=== PATIENT | female | born 1985 | race African-American/Black ===

== ENCOUNTER 2016-08-08 22:34 | Emergency (ER) | payer SELFPAY ==
[~2016-08-08 22:34] MED LIST: ACET500T55 PO; AMOX875T PO; CIPR500T94 PO; GLYB5TAB3 PO; METF500T4 PO; METR500T PO; ONDA4TAB10 SL; OXYC1TAB7 PO
[2016-08-08 22:52] VITALS: BP 191/101
[2016-08-08 23:11] LABS: NEG OBC UR NEG; POS OBC UR POS
[2016-08-08 23:14] LABS: BILIRUBIN,URINE NEGATIVE (NEG); GLUCOSE,URINE >=1000 mg/dL (NEG); NITRITE,URINE NEGATIVE (NEG); PH,URINE 6.5; PROTEIN,URINE NEGATIVE (NEG-TRACE); UROBILINOGEN,URINE 0.2 mg/dL (0.2 mg/dL)
[2016-08-08 23:20] LABS: BACTERIA,URINE 0 /HPF (0-FEW); RBC,URINE 0 /HPF (0-2); SQUAMOUS EPITHELIAL CELL,UR FEW /LPF; WBC,URINE OCC /HPF (0-4)
[2016-08-08] MEDS ORDERED: IV NORMAL SALINE 1000ML BAG 1,000 ML IV SCH (23:30)
[2016-08-08 23:32] LABS: ANION GAP 12 (6-14); BLOOD UREA NITROGEN 13 mg/dL (7-20); CALCIUM 9.3 mg/dL (8.5-10.1); CARBON DIOXIDE 26 mmol/L (21-32); CHLORIDE 100 mmol/L (98-107); CREATININE 1.2 mg/dL (0.6-1.0); GFR 63.4; GLUCOSE 427 mg/dL (70-99); POTASSIUM 3.6 mmol/L (3.5-5.1); SODIUM 138 mmol/L (136-145)
[2016-08-08 23:37] LABS: ALBUMIN 3.4 g/dL (3.4-5.0); ALK PHOS 100 U/L (46-116); ALT (SGPT) 15 U/L (14-59); AST (SGOT) 10 U/L (15-37); DIRECT BILIRUBIN < 0.1 mg/dL (0.0-0.2); TOTAL BILIRUBIN 0.2 mg/dL (0.2-1.0)
[2016-08-08] MEDS ORDERED: INSULIN REGULAR 100 UNIT/ML 10ML VIAL. IV ONE (23:45)
[2016-08-09] MEDS ORDERED: ACETAMINOPHEN 500 MG TABLET PO ONE
--- NOTE | 2016-08-09 00:31 | PHYS DOC ---
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 She began to feel ill this evening, then she had mild upper abdominal and lower chest discomfort, then she had an episode of emesis with resolution of her discomfort. She currently has chills, general fatigue and general weakness. She also has a headache that is gradual onset after these symptoms as well; bilateral, achy. She denies cough, rhinorrhea, dyspnea, diarrhea, dysuria , hematuria, vaginal bleeding or discharge. Review of Systems Review of Systems Constitutional: Denies measured fever [] Eyes: Denies change in visual acuity, redness, or eye pain [] HENT: Denies nasal congestion or sore throat [] Respiratory: Denies cough or shortness of breath [] Cardiovascular: No additional information not addressed in HPI [] GI: Denies vomiting, bloody stools or diarrhea [] : Denies dysuria or hematuria [] Musculoskeletal: Denies back pain or joint pain [] Integument: Denies rash or skin lesions [] Neurologic: Denies headache, focal weakness or sensory changes [] Endocrine: Denies polyuria or polydipsia [] Current Medications Current Medications Current Medications Medications (Trade) Dose Ordered Sig/[facility] Start Time Stop Time Status Last Admin Dose Admin Acetaminophen (Tylenol) 500 mg 1X ONCE 08/09/16 00:00 08/09/16 00:01 DC 08/08/16 23:48 500 MG Insulin Human Regular (Novolin R Vial) 10 unit 1X ONCE 08/08/16 23:45 08/08/16 23:45 DC Sodium Chloride (Iv Sodium Chloride 0.9% 1000ml Bag) 1,000 ml @ 1,000 mls/hr Q1H 08/08/16 23:30 08/09/16 00:29 DC 08/08/16 23:29 1,000 MLS/HR Allergies Allergies Allergies Coded Allergies Type Severity Reaction Last Updated Verified broccoli Allergy Intermediate 07/10/16 Yes hydrocodone Allergy Intermediate Itching 07/07/16 No Physical Exam Physical Exam Constitutional: Well developed, well nourished, no acute distress, non-toxic appearance. [] HENT: Normocephalic, atraumatic, bilateral external ears normal, oropharynx moist, nose normal. [] Eyes: PERRLA, EOMI. [] Neck: Normal range of motion, supple. [] Cardiovascular:Heart rate regular rhythm [] Lungs & Thorax: Bilateral breath sounds clear to auscultation. No chest wall tenderness [] Abdomen: Bowel sounds normal, soft, no tenderness. [] Skin: Warm, dry, no erythema, no rash. [] Back: No tenderness, no CVA tenderness. [] Extremities: No tenderness, ROM intact, no edema. [] Neurologic: Alert and oriented X 3, normal motor function, normal sensory function, no focal deficits noted, cranial nerves II through XII intact. [] Psychologic: Affect normal, judgement normal, mood normal. [] Current Patient Data Vital Signs Vital Signs Date Time Temp Pulse Resp B/P Pulse Ox O2 Delivery O2 Flow Rate FiO2 08/08/16 22:52 98.3 88 46 191/101 99 Room Air 98.3 Lab Values Laboratory Tests Test 08/08/16 22:30 08/08/16 23:00 Urine Collection Type Unknown Urine Color Yellow Urine Clarity Clear Urine pH 6.5 Urine Specific [place] >=1.030 Urine Protein Negativemg/dL (NEG-TRACE) Urine Glucose (UA) >=1000mg/dL (NEG) Urine Ketones (Stick) Negativemg/dL (NEG) Urine Blood Negative (NEG) Urine Nitrite Negative (NEG) Urine Bilirubin Negative (NEG) Urine Urobilinogen Dipstick 0.2mg/dL (0.2 mg/dL) Urine Leukocyte Esterase Negative (NEG) Urine RBC 0/HPF (0-2) Urine WBC Occ/HPF (0-4) Urine Squamous Epithelial Cells Few/LPF Urine Bacteria 0/HPF (0-FEW) Urine Test Negative (NEG) Sodium Level 138mmol/L (136-145) Potassium Level 3.6mmol/L (3.5-5.1) Chloride Level 100mmol/L (98-107) Carbon Dioxide Level 26mmol/L (21-32) Anion Gap 12 (6-14) Blood Urea Nitrogen 13mg/dL (7-20) Creatinine 1.2mg/dL (0.6-1.0) H Estimated GFR (Cockcroft-Gault) 63.4 Glucose Level 427mg/dL (70-99) H Calcium Level 9.3mg/dL (8.5-10.1) Total Bilirubin 0.2mg/dL (0.2-1.0) Direct Bilirubin < 0.1mg/dL (0.0-0.2) Aspartate Amino Transferase (AST) 10U/L (15-37) L Alanine Aminotransferase (ALT) 15U/L (14-59) Alkaline Phosphatase 100U/L (46-116) Total Protein 8.0g/dL (6.4-8.2) Albumin 3.4g/dL (3.4-5.0) Lipase 331U/L (73-393) Laboratory Tests 08/08/16 23:00 Course & Med Decision Making Course & Med Decision Making Pertinent Labs and Imaging studies reviewed. (See chart for details) Laboratory evaluation is unremarkable other than hyperglycemia, which has improved into the 300s with IV fluids. Discussed supportive care and need for follow-up with primary care for management of diabetes. Return precautions given. She understands and agrees with plan. Dragon Disclaimer Dragon Disclaimer This electronic medical record was generated, in whole or in part, using a voice recognition dictation system. Departure Departure Impression: Primary Impression: Nausea and vomiting Additional Impression: Hyperglycemia due to type 2 diabetes mellitus Disposition: 01 HOME, SELF-CARE Condition: STABLE Referrals: NO PCP (PCP) Patient Instructions: Nausea, Adult, [id number] Additional Instructions: Drink liquids to stay hydrated. Follow-up with your primary care doctor. Return for any concerns. 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
== END 2016-08-09 01:04 | disposition home or self-care (01) ==
LOC: ER 22:34
DX: R11.2 Nausea with vomiting, unspecified (principal); E11.65 Type 2 diabetes mellitus with hyperglycemia; R10.30 Lower abdominal pain, unspecified; R07.89 Other chest pain; R10.10 Upper abdominal pain, unspecified; R53.83 Other fatigue; R53.1 Weakness; R51 Headache; Z91.018 Allergy to other foods; Z88.5 Allergy status to narcotic agent
CPT/HCPCS: 36415; 80048; 80076; 81001; 81025; 82947; 83690; 96360; 99284; J7030

== ENCOUNTER 2016-10-25 07:30 | Emergency (ER) | payer SELFPAY ==
[~2016-10-25] VITALS: Ht 162.6 cm; Wt 91.6 kg
[2016-10-25 07:35] VITALS: BP 148/78
[2016-10-25] MEDS ORDERED: OFLO5DRO EACHEYE (07:59)
--- NOTE | 2016-10-25 08:00 | PHYS DOC ---
Past Medical History Past Medical History: Diabetes-Type II, Other Additional Past Medical Histor: L breast rib and stomach tumor/cyst removal Past Surgical History: Other Additional Past Surgical Histo: L breast rib and stomach tumor/cyst removal 2015 Additional Information: nonsmoker Alcohol Use: None Drug Use: None Adult General Chief Complaint Chief Complaint: EYE PROBLEMS HPI HPI Patient is a 31 year old female who presents with bilateral eye irritation starting 2 days ago. It started in the left eye and has spread to the right eye as well. It began after she used a new set of contact lenses. She complains that the eyes are red with drainage from the eyes. The left eye was matted shut this morning when she awoke. She denies any vision changes. She does not have a PCP. Review of Systems Review of Systems Constitutional: Denies fever or chills. [] Eyes: Denies change in visual acuity. Reports bilateral eye redness and drainage. HENT: Denies ear pain, nasal congestion or sore throat. [] Integument: Denies rash or skin lesions. [] Neurologic: Denies headache, focal weakness or sensory changes. [] Allergies Allergies Allergies Coded Allergies Type Severity Reaction Last Updated Verified broccoli Allergy Intermediate 07/10/16 Yes hydrocodone Allergy Intermediate Itching 07/07/16 No Physical Exam Physical Exam Constitutional: Well developed, well nourished, no acute distress, non-toxic appearance. [] HENT: Normocephalic, atraumatic, bilateral external ears normal, oropharynx moist, no oral exudates, nose normal. [] Eyes: PERRLA, EOMI. Bilateral conjunctival injection with purulent drainage in the eyelashes. There is no edema of the eyelids to suggest orbital or periorbital cellulitis. Neck: Normal range of motion, no tenderness, supple, no stridor. [] Skin: Warm, dry, no erythema, no rash. [] Neurologic: Alert and oriented X 3, normal motor function, normal sensory function, no focal deficits noted. [] Psychologic: Affect normal, judgement normal, mood normal. [] EKG EKG [] Radiology/Procedures Radiology/Procedures [] Course & Med Decision Making Course & Med Decision Making Pertinent Labs and Imaging studies reviewed. (See chart for details) [] Dragon Disclaimer Dragon Disclaimer This electronic medical record was generated, in whole or in part, using a voice recognition dictation system. Departure Departure Impression: Primary Impression: Conjunctivitis Disposition: 01 HOME, SELF-CARE Condition: STABLE Referrals: Cathleen RAMOS MD Patient Instructions: Bacterial Conjunctivitis, [id number] Additional Instructions: You were seen today for pink eye, or conjunctivitis, caused by your contact lenses. Please use the prescribed eye drops as directed. Apply warm compresses to the eyes to soothe and to remove crusted drainage from the eyes. Please practice good hand hygiene, washing your hands frequently to avoid spreading the infection to others. Please do not wear contact lenses until you have completed the antibiotic eye drops. Please use a new pair of contact lenses and throw the old pair away. Please do not use eye makeup until you have completed the antibiotic eye drops. Throw away any old eye makeup that may have been contaminated prior to treatment. Please follow up with the real estate specialist listed below if you have any change in your vision or other complications. Return to the emergency department if you have any new or concerning symptoms. Scripts Ofloxacin (Ocuflox)5 Ml Drops1-2 Drop EACHEYE Q4HRS 7 Days Use every 4 hours for 2 days, then every 6 hours for the next 5 days. Prov:JUANA MCFARLANE 10/25/16 Problem Qualifiers Primary Impression: Conjunctivitis Conjunctivitis type: acute Acute conjunctivitis type: unspecified Laterality: bilateral Qualified Code: H10.33 - Unspecified acute conjunctivitis, bilateral JUANA MCFARLANE Oct 25, 2016 08:00
== END 2016-10-25 08:09 | disposition home or self-care (01) ==
LOC: ER 07:30
DX: H10.9 Unspecified conjunctivitis (principal); E11.9 Type 2 diabetes mellitus without complications; Z88.5 Allergy status to narcotic agent; Z91.018 Allergy to other foods
CPT/HCPCS: 99283

== ENCOUNTER 2017-03-07 08:40 | Emergency (ER) | payer SELFPAY ==
[~2017-03-07] VITALS: Ht 157.5 cm; Wt 92.1 kg
[~2017-03-07 08:40] MED LIST changes: +OFLO5DRO EACHEYE
[2017-03-07] MEDS ORDERED: NAPROXEN 500 MG TABLET PO STA (09:13)
[2017-03-07] MEDS ORDERED: IV NORMAL SALINE 1000ML BAG 1,000 ML IV ONE (09:30)
[2017-03-07] MEDS ORDERED: MECLIZINE HCL 12.5 MG TABLET. PO ONE (09:30)
--- NOTE | 2017-03-07 09:40 | PHYS DOC ---
Past Medical History Past Medical History: Diabetes-Type II, Other Additional Past Medical Histor: L breast rib and stomach tumor/cyst removal Past Surgical History: Other Additional Past Surgical Histo: L breast rib and stomach tumor/cyst removal 2015 Alcohol Use: None Drug Use: None Adult General Chief Complaint Chief Complaint: DIZZY/LIGHT HEADED HPI HPI Patient is a 32 year old female with a history of diabetes type 2 who presents today with dizziness that began yesterday. Patient denies anything exacerbating or making the dizziness better. Patient states she also has mild posterior neck pain nonradiating in nature. Patient states the neck pain is worse on movement. 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 Patient states she is to take metformin but stopped it after she was told her blood sugars are okay. Patient follows up with [facility]. Review of Systems Review of Systems Constitutional: Denies fever or chills [] Eyes: Denies change in visual acuity, redness, or eye pain [] HENT: Denies nasal congestion or sore throat [] Respiratory: Denies cough or shortness of breath [] Cardiovascular: No additional information not addressed in HPI [] GI: Denies abdominal pain, nausea, vomiting, bloody stools or diarrhea [] : Denies dysuria or hematuria [] Musculoskeletal: neck Integument: Denies rash or skin lesions [] Neurologic: Dizziness Endocrine: Denies polyuria or polydipsia [] Current Medications Current Medications Current Medications Medications (Trade) Dose Ordered Sig/[facility] Start Time Stop Time Status Last Admin Dose Admin Meclizine HCl (Antivert) 25 mg 1X ONCE 03/07/17 09:30 03/07/17 09:31 DC 03/07/17 09:54 25 MG Naproxen (Naprosyn) 500 mg 1X STAT 03/07/17 09:13 03/07/17 09:18 DC 03/07/17 09:54 500 MG Sodium Chloride 1,000 ml @ 1,000 mls/hr 1X ONCE 03/07/17 09:30 03/07/17 10:29 DC Allergies Allergies Allergies Coded Allergies Type Severity Reaction Last Updated Verified broccoli Allergy Intermediate 07/10/16 Yes hydrocodone Allergy Intermediate Itching 07/07/16 No Physical Exam Physical Exam Constitutional: Well developed, well nourished, no acute distress, non-toxic appearance. [] HENT: Normocephalic, atraumatic, bilateral external ears normal, oropharynx moist, no oral exudates, nose normal. [] Eyes: PERRLA, EOMI, conjunctiva normal, no discharge. [] Neck: Normal range of motion, no tenderness, supple, no stridor. [] Cardiovascular:Heart rate regular rhythm, no murmur [] Lungs & Thorax: Bilateral breath sounds clear to auscultation [] Abdomen: Bowel sounds normal, soft, no tenderness, no masses, no pulsatile masses. [] Skin: Warm, dry, no erythema, no rash. [] Back: No tenderness, no CVA tenderness. [] Extremities: No tenderness, no cyanosis, no clubbing, ROM intact, no edema. [] Neurologic: Alert and oriented X 3, normal motor function, normal sensory function, no focal deficits noted. Cranial nerves II through XII intact Psychologic: Affect normal, judgement normal, mood normal. [] Current Patient Data Vital Signs Vital Signs Date Time Temp Pulse Resp B/P (MAP) Pulse Ox O2 Delivery O2 Flow Rate FiO2 03/07/17 09:08 98.4 83 18 119/79 (92) 96 Room Air 98.4 Lab Values Laboratory Tests Test 03/07/17 08:04 03/07/17 08:48 03/07/17 10:00 POC Urine HCG, Qualitative Hcg negative (Negative) Urine Collection Type Void Urine Color Yellow Urine Clarity Clear Urine pH 5.5 Urine Specific [place] >=1.030 Urine Protein Negative mg/dL (NEG-TRACE) Urine Glucose (UA) >=1000 mg/dL (NEG) Urine Ketones (Stick) Negative mg/dL (NEG) Urine Blood Negative (NEG) Urine Nitrite Negative (NEG) Urine Bilirubin Negative (NEG) Urine Urobilinogen Dipstick 0.2 mg/dL (0.2 mg/dL) Urine Leukocyte Esterase Negative (NEG) Urine RBC 0 /HPF (0-2) Urine WBC 1-4 /HPF (0-4) Urine Squamous Epithelial Cells Mod /LPF Urine Bacteria 0 /HPF (0-FEW) White Blood Count 5.7 x10^3/uL (4.0-11.0) Red Blood Count 4.65 x10^6/uL (3.50-5.40) Hemoglobin 12.8 g/dL (12.0-15.5) Hematocrit 38.5 % (36.0-47.0) Mean Corpuscular Volume 83 fL (79-100) Mean Corpuscular Hemoglobin 28 pg (25-35) Mean Corpuscular Hemoglobin Concent 33 g/dL (31-37) Red Cell Distribution Width 13.4 % (11.5-14.5) Platelet Count 297 x10^3/uL (140-400) Neutrophils (%) (Auto) 57 % (31-73) Lymphocytes (%) (Auto) 36 % (24-48) Monocytes (%) (Auto) 6 % (0-9) Eosinophils (%) (Auto) 1 % (0-3) Basophils (%) (Auto) 1 % (0-3) Neutrophils # (Auto) 3.3 x10^3uL (1.8-7.7) Lymphocytes # (Auto) 2.0 x10^3/uL (1.0-4.8) Monocytes # (Auto) 0.4 x10^3/uL (0.0-1.1) Eosinophils # (Auto) 0.0 x10^3/uL (0.0-0.7) Basophils # (Auto) 0.0 x10^3/uL (0.0-0.2) Sodium Level 136 mmol/L (136-145) Potassium Level 4.5 mmol/L (3.5-5.1) Chloride Level 101 mmol/L (98-107) Carbon Dioxide Level 28 mmol/L (21-32) Anion Gap 7 (6-14) Blood Urea Nitrogen 16 mg/dL (7-20) Creatinine 1.0 mg/dL (0.6-1.0) Estimated GFR (Cockcroft-Gault) 77.7 BUN/Creatinine Ratio 16 (6-20) Glucose Level 308 mg/dL (70-99) H Calcium Level 8.4 mg/dL (8.5-10.1) L Total Bilirubin 0.2 mg/dL (0.2-1.0) Aspartate Amino Transferase (AST) 9 U/L (15-37) L Alanine Aminotransferase (ALT) 19 U/L (14-59) Alkaline Phosphatase 78 U/L (46-116) Creatine Kinase 98 U/L (26-192) Creatine Kinase MB (Mass) < 0.5 ng/mL (0.0-3.6) Creatine Kinase MB Relative Index % (0-4) Troponin I Quantitative < 0.017 ng/mL (0.000-0.055) Total Protein 7.0 g/dL (6.4-8.2) Albumin 3.3 g/dL (3.4-5.0) L Albumin/Globulin Ratio 0.9 (1.0-1.7) L Lipase 257 U/L (73-393) Laboratory Tests 03/07/17 10:00 Laboratory Tests 03/07/17 10:00 EKG EKG 09:[address] [facility], leftward axis, QRS interval 78 , heart rate 80, no STEMI. [] Radiology/Procedures Radiology/Procedures []PROCEDURE: CHEST PA & LATERAL PA and lateral chest radiographs 03/07/2017. Clinical History: Left-sided chest pain for one day. PA and lateral digital radiographs of the chest were obtained. Comparison study is dated 08/14/2010. The cardiac and mediastinal silhouettes are within normal limits in size and configuration. No pulmonary infiltrate is seen. No pleural effusion or pneumothorax is noted. 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 Impression: No radiographic evidence of active cardiopulmonary disease. DICTATED and SIGNED BY: CATE SWAIN MD DATE: 03/07/17 1038 Course & Med Decision Making Course & Med Decision Making Pertinent Labs and Imaging studies reviewed. (See chart for details) This is a 32-year-old female patient presenting to the ED today with dizziness and neck pain that began yesterday. 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 Patient is a diabetic who stopped taking her metformin months ago. Her workup is essentially negative except for blood glucose of 308. Encouraged patient to resume taking her metformin. I did give her prescription for the medication. I recommended she follows up with [facility] clinic as soon as she can. Recommended she pushes his fluids. Discharged with naproxen for neck pain. Dragon Disclaimer Dragon Disclaimer This electronic medical record was generated, in whole or in part, using a voice recognition dictation system. Departure Departure Impression: Primary Impression: Dizziness Additional Impression: Hyperglycemia due to type 2 diabetes mellitus Disposition: HOME, SELF-CARE Condition: STABLE Referrals: NO PCP (PCP) Follow-up with your doctor as soon as possible Patient Instructions: Diabetes Meal Planning Guide, Dizziness, [id number] Additional Instructions: You were seen for dizziness in the emergency room. Your work up shows a blood glucose of 308. This is high. You need to resume taking your metformin. Contact your doctor in follow-up as soon as possible. Try and push fluids. 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
--- NOTE | 2017-03-07 09:54 | EKG ---
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 RI6.01 Unconfirmed report Electronically Signed On 03-14-2017 9:07:21 CDT by Gregg Rbualcava
[2017-03-07 10:22] LABS: CALCIUM 8.4 mg/dL (8.5-10.1); GFR 77.7; POTASSIUM 4.5 mmol/L (3.5-5.1)
[2017-03-07 10:28] LABS: ALBUMIN 3.3 g/dL (3.4-5.0); ALBUMIN/GLOBULIN RATIO 0.9 (1.0-1.7); TOTAL BILIRUBIN 0.2 mg/dL (0.2-1.0)
[2017-03-07 10:29] LABS: BILIRUBIN,URINE NEGATIVE (NEG); GLUCOSE,URINE >=1000 mg/dL (NEG); NITRITE,URINE NEGATIVE (NEG); PH,URINE 5.5; PROTEIN,URINE NEGATIVE (NEG-TRACE); UROBILINOGEN,URINE 0.2 mg/dL (0.2 mg/dL)
[2017-03-07 10:31] LABS: BASO % 1 % (0-3); EOS % 1 % (0-3); HEMATOCRIT 38.5 % (36.0-47.0); HEMOGLOBIN 12.8 g/dL (12.0-15.5); LYMPH % 36 % (24-48); MEAN CORPUSCULAR HEMOGLOBIN 28 pg (25-35); MEAN CORPUSCULAR HGB CONC 33 g/dL (31-37); MEAN CORPUSCULAR VOLUME 83 fL (79-100); MONO % 6 % (0-9); NEUT % 57 % (31-73); PLATELET COUNT 297 x10^3/uL (140-400); RED BLOOD COUNT 4.65 x10^6/uL (3.50-5.40); RED CELL DISTRIBUTION WIDTH 13.4 % (11.5-14.5); WHITE BLOOD COUNT 5.7 x10^3/uL (4.0-11.0)
[2017-03-07 10:39] LABS: CREATINE KINASE 98 U/L (26-192)
[2017-03-07 10:40] LABS: CKMB MASS < 0.5 ng/mL (0.0-3.6)
--- NOTE | 2017-03-07 10:42 | RAD ---
PA and lateral chest radiographs 03/07/2017. Clinical History: Left-sided chest pain for one day. PA and lateral digital radiographs of the chest were obtained. Comparison study is dated 08/14/2010. The cardiac and mediastinal silhouettes are within normal limits in size and configuration. No pulmonary infiltrate is seen. No pleural effusion or pneumothorax is noted. 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 Impression: No radiographic evidence of active cardiopulmonary disease.
[2017-03-07 10:48] LABS: BACTERIA,URINE 0 /HPF (0-FEW); RBC,URINE 0 /HPF (0-2); SQUAMOUS EPITHELIAL CELL,UR MOD /LPF
[2017-03-07] MEDS ORDERED: NAPR500T8 PO (11:47)
[2017-03-07] MEDS ORDERED: METF-620 PO (11:47)
[2017-03-07 11:54] VITALS: BP 134/86
== END 2017-03-07 12:00 | disposition home or self-care (01) ==
LOC: ER 08:40
DX: E11.65 Type 2 diabetes mellitus with hyperglycemia (principal); R42 Dizziness and giddiness; Z88.5 Allergy status to narcotic agent; Z91.018 Allergy to other foods
CPT/HCPCS: 36415; 71020; 80053; 81001; 81025; 82553; 83690; 84484; 85027; 93005; 99285; J8597

== ENCOUNTER 2017-04-29 21:04 | Emergency (ER) | payer SELFPAY ==
[~2017-04-29] VITALS: Ht 154.9 cm; Wt 91.2 kg
[~2017-04-29 21:04] MED LIST changes: +METF-620 PO; +NAPR500T8 PO
[2017-04-29 21:42] LABS: BASO # 0.1 x10^3/uL (0.0-0.2); BASO % 1 % (0-3); EOS % 1 % (0-3); HEMATOCRIT 40.3 % (36.0-47.0); LYMPH # 2.1 x10^3/uL (1.0-4.8); LYMPH % 34 % (24-48); MEAN CORPUSCULAR HEMOGLOBIN 27 pg (25-35); MEAN CORPUSCULAR HGB CONC 32 g/dL (31-37); MEAN CORPUSCULAR VOLUME 84 fL (79-100); MONO % 6 % (0-9); NEUT % 59 % (31-73); PLATELET COUNT 299 x10^3/uL (140-400); RED BLOOD COUNT 4.77 x10^6/uL (3.50-5.40); RED CELL DISTRIBUTION WIDTH 12.7 % (11.5-14.5); WHITE BLOOD COUNT 6.3 x10^3/uL (4.0-11.0)
[2017-04-29 21:51] LABS: CALCIUM 9.6 mg/dL (8.5-10.1); GFR 77.7; POTASSIUM 3.9 mmol/L (3.5-5.1)
[2017-04-29 21:57] LABS: ALBUMIN 3.4 g/dL (3.4-5.0); ALBUMIN/GLOBULIN RATIO 0.8 (1.0-1.7); TOTAL BILIRUBIN 0.2 mg/dL (0.2-1.0); TOTAL PROTEIN 7.5 g/dL (6.4-8.2)
[2017-04-29] MEDS ORDERED: IV NORMAL SALINE 1000ML BAG 1,000 ML IV ONE ×2 (22:00→23:00)
[2017-04-29 22:06] LABS: BILIRUBIN,URINE NEGATIVE (NEG); GLUCOSE,URINE >=1000 mg/dL (NEG); NITRITE,URINE NEGATIVE (NEG); PH,URINE 5.5; PROTEIN,URINE 100 mg/dL (NEG-TRACE); UROBILINOGEN,URINE 0.2 mg/dL (0.2 mg/dL)
[2017-04-29 22:16] LABS: BACTERIA,URINE FEW /HPF (0-FEW); RBC,URINE 0 /HPF (0-2)
[2017-04-29 22:17] LABS: SQUAMOUS EPITHELIAL CELL,UR MANY /LPF
--- NOTE | 2017-04-29 22:45 | PHYS DOC ---
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 Patient has a known history of diabetes however has been out of her metformin for past couple months. While arguing patient passed out and family called EMS. When EMS got there blood sugar was greater than 300. Upon arrival emergency room patient had no complaints. Patient denies any chest pain or shortness of breath. Patient denies any nausea/vomiting/ diarrhea. Patient denies any fevers. Patient states she feels back to normal at this time. Review of Systems Review of Systems GEN: Denies fevers, chills, sweats HEENT: Denies blurred vision, sore throat CV: Denies chest pain RESP: Denies shortness of air, cough GI: Denies n/v/d NEURO: Syncope MSK: Denies weakness, joint pain/swelling Current Medications Current Medications Current Medications Medications (Trade) Dose Ordered Sig/Sylvia Start Time Stop Time Status Last Admin Dose Admin Sodium Chloride 1,000 ml @ 1,000 mls/hr 1X ONCE 04/29/17 23:00 04/29/17 23:59 04/29/17 23:02 1,000 MLS/HR Allergies Allergies Allergies Coded Allergies Type Severity Reaction Last Updated Verified broccoli Allergy Intermediate 07/10/16 Yes hydrocodone Allergy Intermediate Itching 07/07/16 No Physical Exam Physical Exam GEN.: No apparent distress. Alert and oriented. HEENT: Head is normocephalic, atraumatic NECK: Supple. LUNGS: CTAB. HEART: RRR, S1, S2 present. Peripheral pulses intact ABDOMEN: Soft, nontender. Positive bowel sounds. EXTREMITIES: Without any cyanosis. NEUROLOGIC: Normal speech, normal tone PSYCHIATRIC: Normal affect, normal mood. SKIN: No ulcerations Current Patient Data Vital Signs Vital Signs Date Time Temp Pulse Resp B/P (MAP) Pulse Ox O2 Delivery O2 Flow Rate FiO2 04/29/17 22:04 78 16 128/73 (91) 100 Room Air 04/29/17 21:28 98.5 98.5 Lab Values Laboratory Tests Test 04/29/17 21:19 04/29/17 21:20 04/29/17 21:30 04/29/17 21:59 White Blood Count 6.3 x10^3/uL (4.0-11.0) Red Blood Count 4.77 x10^6/uL (3.50-5.40) Hemoglobin 13.0 g/dL (12.0-15.5) Hematocrit 40.3 % (36.0-47.0) Mean Corpuscular Volume 84 fL (79-100) Mean Corpuscular Hemoglobin 27 pg (25-35) Mean Corpuscular Hemoglobin Concent 32 g/dL (31-37) Red Cell Distribution Width 12.7 % (11.5-14.5) Platelet Count 299 x10^3/uL (140-400) Neutrophils (%) (Auto) 59 % (31-73) Lymphocytes (%) (Auto) 34 % (24-48) Monocytes (%) (Auto) 6 % (0-9) Eosinophils (%) (Auto) 1 % (0-3) Basophils (%) (Auto) 1 % (0-3) Neutrophils # (Auto) 3.7 x10^3uL (1.8-7.7) Lymphocytes # (Auto) 2.1 x10^3/uL (1.0-4.8) Monocytes # (Auto) 0.4 x10^3/uL (0.0-1.1) Eosinophils # (Auto) 0.0 x10^3/uL (0.0-0.7) Basophils # (Auto) 0.1 x10^3/uL (0.0-0.2) Sodium Level 137 mmol/L (136-145) Potassium Level 3.9 mmol/L (3.5-5.1) Chloride Level 101 mmol/L (98-107) Carbon Dioxide Level 25 mmol/L (21-32) Anion Gap 11 (6-14) Blood Urea Nitrogen 12 mg/dL (7-20) Creatinine 1.0 mg/dL (0.6-1.0) Estimated GFR (Cockcroft-Gault) 77.7 BUN/Creatinine Ratio 12 (6-20) Glucose Level 359 mg/dL (70-99) H Calcium Level 9.6 mg/dL (8.5-10.1) Total Bilirubin 0.2 mg/dL (0.2-1.0) Aspartate Amino Transferase (AST) 16 U/L (15-37) Alanine Aminotransferase (ALT) 18 U/L (14-59) Alkaline Phosphatase 74 U/L (46-116) Total Protein 7.5 g/dL (6.4-8.2) Albumin 3.4 g/dL (3.4-5.0) Albumin/Globulin Ratio 0.8 (1.0-1.7) L Glucose (Fingerstick) 339 mg/dL (70-99) H Urine Collection Type Unknown Urine Color Yellow Urine Clarity Clear Urine pH 5.5 Urine Specific [place] >=1.030 Urine Protein 100 mg/dL (NEG-TRACE) Urine Glucose (UA) >=1000 mg/dL (NEG) Urine Ketones (Stick) Trace mg/dL (NEG) Urine Blood Negative (NEG) Urine Nitrite Negative (NEG) Urine Bilirubin Negative (NEG) Urine Urobilinogen Dipstick 0.2 mg/dL (0.2 mg/dL) Urine Leukocyte Esterase Negative (NEG) Urine RBC 0 /HPF (0-2) Urine WBC 1-4 /HPF (0-4) Urine Squamous Epithelial Cells Many /LPF Urine Bacteria Few /HPF (0-FEW) POC Urine HCG, Qualitative Hcg negative (Negative) Laboratory Tests 04/29/17 21:19 Laboratory Tests 04/29/17 21:19 EKG EKG 2124: NSR rate of 83 no STEMI[] Radiology/Procedures Radiology/Procedures CXR NAD[] Course & Med Decision Making Course & Med Decision Making Pertinent Labs and Imaging studies reviewed. (See chart for details) ED course: Patient was seen and examined emergency room CBC, CMP, UA, EKG, chest were ordered 2331: Patient was updated on lab results and reevaluated in which she feels much better and is asymptomatic. Patient elected to be sounds. Patient is stable to eat and stable to be discharged. Patient is comfortable going home. Made patient aware of elevated blood sugars and recommended short-term follow- up with PCP in one to 2 days. MDM: After reviewing the chart, CC/HPI/PMH, physical exam, [lab results], [ radiological results], I do not believe the patient has emergent medical condition warranting further workup and/or admission at this time. Patient has elevated blood sugars but is not in DKA. Patient is stable for discharge. Recommended short-term follow-up with PCP in one to 2 days. Additional verbal discharge instructions were provided to the patient and that if symptoms get worse or any new symptoms arise that are worrisome to the patient she is to return to the emergency room immediately [] Dragon Disclaimer Dragon Disclaimer This electronic medical record was generated, in whole or in part, using a voice recognition dictation system. Departure Departure Impression: Primary Impression: Syncope Additional Impression: Hyperglycemia Disposition: 01 HOME, SELF-CARE Condition: IMPROVED Referrals: UNKNOWN PCP NAME (PCP) Patient Instructions: Hyperglycemia, [id number], Syncope, [id number] Additional Instructions: Please follow-up with your family physician next one to 2 days and return if symptoms increase Problem Qualifiers VAIBHAV HUNG DO Apr 29, 2017 22:45
[2017-04-29 23:33] VITALS: BP 136/80
--- NOTE | 2017-04-30 08:22 | RAD ---
PA and lateral chest. History: Syncope PA and lateral views were taken of the chest. The lungs are free of infiltrates. There is mild scoliosis. Heart is normal in size. Impression: 1. No acute chest disease.
--- NOTE | 2017-04-30 12:51 | EKG ---
[facility] [address] [place] [address] Test Date: 2017-04-29 Test Time: 21:19:43 Pat Name: MARY JUAREZ Department: Room: Gender: F Sap Basis: : 1985 Requested By: VAIBHAV HUNG Order Number: [id number] Reading MD: Measurements Intervals [place] Rate: 83 P: 52 SC: 168 QRS: 0 QRSD: 84 T: 30 QT: 366 QTc: 431 Interpretive Statements SINUS RHYTHM LEFT ATRIAL ABNORMALITY LEFTWARD AXIS QRS(T) CONTOUR ABNORMALITY CONSIDER ANTEROLATERAL MYOCARDIAL DAMAGE RI6.01 Unconfirmed report No previous ECG available for comparison
== END 2017-04-29 23:48 | disposition home or self-care (01) ==
LOC: ER 21:04
DX: R55 Syncope and collapse (principal); E11.65 Type 2 diabetes mellitus with hyperglycemia; Z91.018 Allergy to other foods; Z88.5 Allergy status to narcotic agent
CPT/HCPCS: 36415; 71020; 80053; 81001; 81025; 82962; 85025; 93005; 96360; 96361; 99285; J7030

== ENCOUNTER 2017-05-17 06:43 | Emergency (ER) | payer SELFPAY ==
[~2017-05-17] VITALS: Ht 160 cm; Wt 91.2 kg
[2017-05-17 06:52] VITALS: BP 139/92
[2017-05-17] MEDS ORDERED: LIDO30CR TP (07:07)
[2017-05-17] MEDS ORDERED: DOCU-109 PO (07:07)
[2017-05-17] MEDS ORDERED: HYDR25SU18 RC (07:07)
--- NOTE | 2017-05-17 07:08 | PHYS DOC ---
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 She says that her pain is described as dull and achy and there is any development of a small swelling in her rectum. It is tender to touch. There is no blood on her stool although her stools but somewhat formed and full not constipated for her history. She denies any fevers or chills denies any increasing rectal pain except with bowel movements. Patient denies any abdominal pain, nausea, vomiting , vaginal bleeding, discharge or other symptoms. She further denies any rectal trauma or intercourse. She's never had a issue like this in the past. Review of Systems Review of Systems Constitutional: Denies fever or chills [] Eyes: Denies change in visual acuity, redness, or eye pain [] HENT: Denies nasal congestion or sore throat [] Respiratory: Denies cough or shortness of breath [] Cardiovascular: No additional information not addressed in HPI [] GI: Denies abdominal pain, nausea, vomiting, bloody stools or diarrhea patient main complaint is rectal discomfort. : Denies dysuria or hematuria [] Musculoskeletal: Denies back pain or joint pain [] Integument: Denies rash or skin lesions [] Neurologic: Denies headache, focal weakness or sensory changes [] Allergies Allergies Allergies Coded Allergies Type Severity Reaction Last Updated Verified broccoli Allergy Intermediate 07/10/16 Yes hydrocodone Allergy Intermediate Itching 07/07/16 No Physical Exam Physical Exam Vital signs reviewed on the chart demonstrate within normal limits. Constitutional: Well developed, well nourished, no acute distress, non-toxic appearance. [] Abdomen: Bowel sounds normal, soft, no tenderness, no masses, no pulsatile masses. The exam demonstrates a small thrombosed hemorrhoid at the 6 o'clock position measuring about 1.2 cm x .3 cm. It is tender to touch it is not associated with an abscess there is no fluctuance, no soft tissue swelling or evidence of cellulitis around the wound. Local redness around the actual site not within the rectal verge.[] Skin: Warm, dry, no erythema, no rash. [] Back: No tenderness, Neurologic: Alert and oriented X 3, normal motor function, normal sensory function, no focal deficits noted. [] Psychologic: Affect normal, judgement normal, mood normal. [] Current Patient Data Vital Signs Vital Signs Date Time Temp Pulse Resp B/P (MAP) Pulse Ox O2 Delivery O2 Flow Rate FiO2 05/17/17 06:52 99.0 93 16 99 Room Air 99.0 EKG EKG [] Radiology/Procedures Radiology/Procedures [] Course & Med Decision Making Course & Med Decision Making Pertinent Labs and Imaging studies reviewed. (See chart for details) She presents with sudden onset of rectal pain after a bowel movement. Is likely that she has a small thrombosed hemorrhoid at the 6 position no evidence of rectal fissure. Doubt perirectal or rectal abscess. Although patient is a diabetic she will need very close follow-up. I would advise that if her prick the pain does not improve with port of care I would refer her to a GI surgeon to possibly resected this particular hemorrhoid. Precautions were given about the development of a perirectal abscess. Dragon Disclaimer Dragon Disclaimer This electronic medical record was generated, in whole or in part, using a voice recognition dictation system. Departure Departure Impression: Primary Impression: Rectal pain Additional Impression: External hemorrhoid Disposition: 01 HOME, SELF-CARE Condition: IMPROVED Referrals: UNKNOWN PCP NAME (PCP) Patient Instructions: Hemorrhoids Additional Instructions: My discharge plan Follow up: In addition patient is asked to followup with their primary doctor, within a week for followup examination and to address patient's ongoing medical conditions. Because patient does not have a regular medical doctor, a local physician Resource Sheet will be provided to establish care primary care. Patient is advised that in the Emergency Department primary complaints are addressed and only in light of known signs and symptoms. Patient should return immediately to the emergency department if new signs and symptoms develop or patient's condition worsens in any way. At time of discharge patient was in stable condition and had verbalized understanding of the discharge instructions. There is no evidence of perirectal abscess or rectal abscess at this time, pressure a diabetic I would advise he had this very closely followed by a primary care physician and referred to a colorectal surgeon for definitive management if symptoms becomes continuous. Return immediately for any signs of fever, increasing rectal pain or rectal aching despite treatment or if you have any questions or concerns. Scripts Docusate Sodium (COLACE) 100 Mg Capsule 1 CAP PO BID, #30 CAP Prov: SHANAE TOVAR MD 05/17/17 Hydrocortisone Acetate (ANUSOL-HC) 25 Mg Supp.rect 1 SUPP RC BID, #28 SUPP 1 Refill Prov: SHANAE TOVAR MD 05/17/17 Lidocaine/Prilocaine (LIDOCAINE-PRILOCAINE CREAM) 30 Gm Cream..g. 1 ROYAL TP UD Y for PAIN, #30 GM 1 Refill Prov: SHANAE TOVAR MD 05/17/17 Problem Qualifiers SHANAE TOVAR MD May 17, 2017 07:08
[2017-05-17] MEDS ORDERED: LIDOCAINE 5% TOPICAL OINTMENT 35GM TUBE. TP ONE (07:15)
== END 2017-05-17 07:27 | disposition home or self-care (01) ==
LOC: ER 06:43
DX: K64.4 Residual hemorrhoidal skin tags (principal); E11.9 Type 2 diabetes mellitus without complications; Z88.5 Allergy status to narcotic agent; Z91.018 Allergy to other foods
CPT/HCPCS: 99283

== ENCOUNTER 2017-09-12 08:44 | Emergency (ER) | payer SELFPAY ==
[2017-09-12 10:32] LABS: NEGATIVE OBC STREP NEG; POSITIVE OBC STREP POS
[2017-09-12 11:07] LABS: INFLUENZA A PATIENT NEGATIVE (NEGATIVE); INFLUENZA B PATIENT NEGATIVE (NEGATIVE); OBC FLU VALID
== END 2017-09-12 12:13 | disposition home or self-care (01) ==
LOC: ER 08:44
DX: J06.9 Acute upper respiratory infection, unspecified (principal); E11.9 Type 2 diabetes mellitus without complications; Z88.5 Allergy status to narcotic agent; Z91.018 Allergy to other foods
CPT/HCPCS: 87070; 87804; 87804-59; 87880; 99284

== ENCOUNTER 2017-11-14 13:53 | Emergency (ER) | payer SELFPAY ==
[2017-11-14] MEDS: cefTRIAXone IM 250 MG VIAL IM ×2 (14:15→14:27)
[2017-11-14 14:21] LABS: BILIRUBIN,URINE NEGATIVE (NEG); CLARITY,URINE CLEAR; COLOR,URINE YELLOW; GLUCOSE,URINE >=1000 mg/dL (NEG); NITRITE,URINE NEGATIVE (NEG); PH,URINE 5.5; PROTEIN,URINE NEGATIVE (NEG-TRACE); UROBILINOGEN,URINE 0.2 mg/dL (0.2 mg/dL)
[2017-11-14] MEDS: metroNIDAZOLE 500 MG TABLET PO (14:27)
[2017-11-14] MEDS: AZITHROMYCIN 250 MG TABLET. PO (14:27)
[2017-11-14 14:31] LABS: BACTERIA,URINE FEW /HPF (0-FEW); RBC,URINE 0 /HPF (0-2); SQUAMOUS EPITHELIAL CELL,UR MOD /LPF; WBC,URINE OCC /HPF (0-4)
[2017-11-14 14:50] LABS: POC GLUCOSE 264 mg/dL (70-99)
[2017-11-15 15:23] LABS: URINE HCG POC HCG NEGATIVE (Negative)
[2017-11-16 14:35] LABS: CHLAMYDIA PROBE Negative (Negative); GC PROBE Negative (Negative)
== END 2017-11-14 15:20 | disposition home or self-care (01) ==
LOC: ER 13:53
DX: N76.0 Acute vaginitis (principal); B96.89 Other specified bacterial agents as the cause of diseases classified elsewhere; E11.65 Type 2 diabetes mellitus with hyperglycemia; Z20.2 Contact with and (suspected) exposure to infections with a predominantly sexual mode of transmission
CPT/HCPCS: 81001; 81025; 82962; 87491; 87591; 96372; 99284-25; J0696; Q0111; Q0144

== ENCOUNTER 2017-12-15 23:49 | Emergency (ER) | payer SELFPAY | END 2017-12-16 00:30 | disposition home or self-care (01) | LOC: ER 23:49 | DX: S09.90XA Unspecified injury of head, initial encounter (principal); E11.9 Type 2 diabetes mellitus without complications; Z88.5 Allergy status to narcotic agent; Z91.018 Allergy to other foods; Y00.XXXA Assault by blunt object, initial encounter; Y93.89 Activity, other specified; Y99.8 Other external cause status; Y92.89 Other specified places as the place of occurrence of the external cause | CPT/HCPCS: 99282; 99283 ==

== ENCOUNTER 2018-04-11 13:33 | Emergency (ER) | payer SELFPAY ==
[~2018-04-11] VITALS: Ht 160 cm; Wt 92.1 kg
[~2018-04-11 13:33] MED LIST changes: +DOCU-109 PO; +HYDR25SU18 RC; +LIDO30CR TP; -METF-620 PO; +METF10007 PO; +METF500T16 PO; -METF500T4 PO; +NAPR-514 PO
[2018-04-11 14:25] LABS: BILIRUBIN,URINE NEGATIVE (NEG); CLARITY,URINE CLEAR; COLOR,URINE YELLOW; NITRITE,URINE NEGATIVE (NEG); PH,URINE 5.5; PROTEIN,URINE NEGATIVE (NEG-TRACE); UROBILINOGEN,URINE 0.2 mg/dL (0.2 mg/dL)
--- NOTE | 2018-04-11 14:28 | EKG ---
[facility] [address] [place] [address] Test Date: 2018-04-11 Test Time: 14:00:50 Pat Name: MARY JUAREZ Department: Room: Gender: F Rn Child: : 1985 Requested By: NICOLE CONNELL Order Number: [id number] Reading MD: Julien Hall Measurements Intervals [place] Rate: 83 P: 42 [place]: 162 QRS: -7 QRSD: 82 T: 22 QT: 362 QTc: 430 Interpretive Statements SINUS RHYTHM LEFTWARD AXIS Electronically Signed On 04-11-2018 16:33:47 CDT by Julien Hall
[2018-04-11 14:43] LABS: BASO # 0.1 x10^3/uL (0.0-0.2); BASO % 1 % (0-3); EOS % 0 % (0-3); HEMATOCRIT 37.5 % (36.0-47.0); HEMOGLOBIN 12.5 g/dL (12.0-15.5); LYMPH # 2.4 x10^3/uL (1.0-4.8); LYMPH % 39 % (24-48); MEAN CORPUSCULAR HEMOGLOBIN 28 pg (25-35); MEAN CORPUSCULAR HGB CONC 33 g/dL (31-37); MEAN CORPUSCULAR VOLUME 83 fL (79-100); MONO # 0.4 x10^3/uL (0.0-1.1); MONO % 7 % (0-9); NEUT # 3.2 x10^3uL (1.8-7.7); NEUT % 53 % (31-73); PLATELET COUNT 278 x10^3/uL (140-400); RED BLOOD COUNT 4.52 x10^6/uL (3.50-5.40); RED CELL DISTRIBUTION WIDTH 12.5 % (11.5-14.5); WHITE BLOOD COUNT 6.1 x10^3/uL (4.0-11.0)
[2018-04-11 14:47] LABS: CALCIUM 9.2 mg/dL (8.5-10.1); GFR 77.3
--- NOTE | 2018-04-11 14:47 | RAD ---
AP and Lateral Views of the Chest 04/11/2018 2:15 PM Indication: CHEST PAIN Comparison: Chest radiograph April 29, 2017 Findings: There is no focal consolidation or infiltrate identified. Heart size is normal. There is no evidence of pneumothorax or pleural effusion. Dextroscoliosis of the thoracic spine is similar to prior study. No acute osseous changes are seen. Impression: No evidence of acute cardiopulmonary process. Electronically signed by: Ghulam Paz MD (04/11/2018 2:43 PM) [id number]
[2018-04-11 14:53] LABS: ALBUMIN 3.2 g/dL (3.4-5.0); ALBUMIN/GLOBULIN RATIO 0.7 (1.0-1.7); TOTAL BILIRUBIN 0.2 mg/dL (0.2-1.0); TOTAL PROTEIN 7.7 g/dL (6.4-8.2)
[2018-04-11 15:02] LABS: PROTHROMBIN TIME PATIENT 12.9 SEC (11.7-14.0)
[2018-04-11 15:04] LABS: BACTERIA,URINE FEW /HPF (0-FEW); RBC,URINE 0 /HPF (0-2); SQUAMOUS EPITHELIAL CELL,UR FEW /LPF; WBC,URINE 0 /HPF (0-4)
[2018-04-11 15:06] LABS: D-DIMER 0.35 ug/mlFEU (0.00-0.50)
--- NOTE | 2018-04-11 15:22 | PHYS DOC ---
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 She describes the pain as sharp and states that it increases with movement. At times she has felt dizzy and short of breath with the pain. She denies any diaphoresis, nausea, vomiting, or wheezing with the pain. Pt states yesterday she was sweating but she did not have the pain at that time. Currently she rates her pain as a 6 out of 10 on the pain scale, nothing makes the pain better. Patient denies taking any aspirin prior to arrival. Her LMP was on and she is unsure if she is . Pt denies any cardiac history states her only medical history is type 2 diabetes. Review of Systems Review of Systems Constitutional: Denies fever or chills [] Eyes: Denies change in visual acuity, redness, or eye pain [] HENT: Denies nasal congestion or sore throat [] Respiratory: Denies cough or shortness of breath [] Cardiovascular: reports chest pain GI: Denies abdominal pain, nausea, vomiting, bloody stools or diarrhea [] Musculoskeletal: Denies back pain, reports L shoulder pain that increases with movement. Integument: Denies rash or skin lesions [] Neurologic: Denies headache, focal weakness or sensory changes [] All other systems were reviewed and found to be within normal limits, except as documented in this note. Current Medications Current Medications Current Medications Medications (Trade) Dose Ordered Sig/Sylvia Start Time Stop Time Status Last Admin Dose Admin Aspirin (Denise Aspirin) 325 mg 1X ONCE 04/11/18 15:30 04/11/18 15:32 DC 04/11/18 16:17 325 MG Ketorolac Tromethamine (Toradol 15mg Vial) 15 mg 1X ONCE 04/11/18 16:45 04/11/18 16:46 DC Allergies Allergies Allergies Coded Allergies Type Severity Reaction Last Updated Verified broccoli Allergy Intermediate 07/10/16 Yes hydrocodone Allergy Intermediate Itching 07/07/16 No Physical Exam Physical Exam Constitutional: Well developed, well nourished, no acute distress, non-toxic appearance, obese. [] HENT: Normocephalic, atraumatic, bilateral external ears normal, oropharynx moist, no oral exudates, nose normal. [] Eyes: PERRLA, conjunctiva normal, no discharge. [] Neck: Normal range of motion, no tenderness, supple, no stridor. [] Cardiovascular:Heart rate regular rhythm, no murmur [] Lungs & Thorax: Bilateral breath sounds clear to auscultation [] Abdomen: Bowel sounds normal, soft, no tenderness, no masses, no pulsatile masses. [] Skin: Warm, dry, no erythema, no rash. [] Extremities: No tenderness, no cyanosis, no clubbing, ROM intact, no edema, L shoulder tender to palpation, increased pain in chest and arm with ROM testing of L shoulder . [] Neurologic: Alert and oriented X 3, normal motor function, normal sensory function, no focal deficits noted. [] Psychologic: Affect normal, judgement normal, mood normal. [] Current Patient Data Vital Signs Vital Signs Date Time Temp Pulse Resp B/P (MAP) Pulse Ox O2 Delivery O2 Flow Rate FiO2 04/11/18 14:09 98.2 85 16 123/73 (90) 100 Room Air 98.2 Lab Values Laboratory Tests Test 04/11/18 14:00 04/11/18 14:10 04/11/18 14:25 04/11/18 16:20 Urine Collection Type Void Urine Color Yellow Urine Clarity Clear Urine pH 5.5 Urine Specific [place] >=1.030 Urine Protein Negative mg/dL (NEG-TRACE) Urine Glucose (UA) >=1000 mg/dL (NEG) Urine Ketones (Stick) Negative mg/dL (NEG) Urine Blood Trace (NEG) Urine Nitrite Negative (NEG) Urine Bilirubin Negative (NEG) Urine Urobilinogen Dipstick 0.2 mg/dL (0.2 mg/dL) Urine Leukocyte Esterase Negative (NEG) Urine RBC 0 /HPF (0-2) Urine WBC 0 /HPF (0-4) Urine Squamous Epithelial Cells Few /LPF Urine Bacteria Few /HPF (0-FEW) POC Urine HCG, Qualitative Hcg negative (Negative) White Blood Count 6.1 x10^3/uL (4.0-11.0) Red Blood Count 4.52 x10^6/uL (3.50-5.40) Hemoglobin 12.5 g/dL (12.0-15.5) Hematocrit 37.5 % (36.0-47.0) Mean Corpuscular Volume 83 fL (79-100) Mean Corpuscular Hemoglobin 28 pg (25-35) Mean Corpuscular Hemoglobin Concent 33 g/dL (31-37) Red Cell Distribution Width 12.5 % (11.5-14.5) Platelet Count 278 x10^3/uL (140-400) Neutrophils (%) (Auto) 53 % (31-73) Lymphocytes (%) (Auto) 39 % (24-48) Monocytes (%) (Auto) 7 % (0-9) Eosinophils (%) (Auto) 0 % (0-3) Basophils (%) (Auto) 1 % (0-3) Neutrophils # (Auto) 3.2 x10^3uL (1.8-7.7) Lymphocytes # (Auto) 2.4 x10^3/uL (1.0-4.8) Monocytes # (Auto) 0.4 x10^3/uL (0.0-1.1) Eosinophils # (Auto) 0.0 x10^3/uL (0.0-0.7) Basophils # (Auto) 0.1 x10^3/uL (0.0-0.2) Prothrombin Time 12.9 SEC (11.7-14.0) Prothrombin Time INR 1.0 (0.8-1.1) D-Dimer (Maria R) 0.35 ug/mlFEU (0.00-0.50) Sodium Level 137 mmol/L (136-145) Potassium Level 4.0 mmol/L (3.5-5.1) Chloride Level 101 mmol/L (98-107) Carbon Dioxide Level 28 mmol/L (21-32) Anion Gap 8 (6-14) Blood Urea Nitrogen 11 mg/dL (7-20) Creatinine 1.0 mg/dL (0.6-1.0) Estimated GFR (Cockcroft-Gault) 77.3 BUN/Creatinine Ratio 11 (6-20) Glucose Level 370 mg/dL (70-99) H Calcium Level 9.2 mg/dL (8.5-10.1) Total Bilirubin 0.2 mg/dL (0.2-1.0) Aspartate Amino Transferase (AST) 12 U/L (15-37) L Alanine Aminotransferase (ALT) 15 U/L (14-59) Alkaline Phosphatase 72 U/L (46-116) Troponin I Quantitative < 0.017 ng/mL (0.000-0.055) < 0.017 ng/mL (0.000-0.055) Total Protein 7.7 g/dL (6.4-8.2) Albumin 3.2 g/dL (3.4-5.0) L Albumin/Globulin Ratio 0.7 (1.0-1.7) L Laboratory Tests 04/11/18 14:25 Laboratory Tests 04/11/18 14:25 EKG EKG 1407- SR No STEMI read by Dr. Thao [] Radiology/Procedures Radiology/Procedures PROCEDURE: CHEST PA & LATERAL AP and Lateral Views of the Chest 04/11/2018 2:15 PM Indication: CHEST PAIN Comparison: Chest radiograph April 29, 2017 Findings: There is no focal consolidation or infiltrate identified. Heart size is normal. There is no evidence of pneumothorax or pleural effusion. Dextroscoliosis of the thoracic spine is similar to prior study. No acute osseous changes are seen. Impression: No evidence of acute cardiopulmonary process. [] Course & Med Decision Making Course & Med Decision Making Pertinent Labs and Imaging studies reviewed. (See chart for details) Dx: L shoulder strain DDx: ACS, pneumonia, NSTEMI, GERD, pleuritis, costochondritis Troponin x2 negative. Blood glucose 370. CXR negative, EKG normal. Clinically pt presents as shoulder strain, treated as such. Pt was given 325 mg of aspirin and 15 mg of IV toradol reports relief of pain after these medications. Pt was advised to follow up with her PCP about her elevated blood sugar. Rx for naproxen written, activity as tolerated. Patient verbalized an understanding of home care, medications, follow-up, and return to ED instructions and was in agreement with the plan of care. [] Dragon Disclaimer Dragon Disclaimer This electronic medical record was generated, in whole or in part, using a voice recognition dictation system. Departure Departure Impression: Primary Impression: Left shoulder pain Additional Impressions: Left shoulder strain Chest pain, musculoskeletal Disposition: HOME, SELF-CARE Condition: IMPROVED Referrals: NO PCP (PCP) Patient Instructions: Shoulder Sprain, Shoulder, Range of Motion Exercises Additional Instructions: Fill prescription and use as directed. May apply heat or ice to sore areas. Activity as tolerated. Follow up with your primary care doctor in 1-2 days about your elevated blood sugar, it was 370 in the ER today. Return to the ER if your symptoms worsen. Scripts Naproxen (NAPROXEN) 500 Mg Tablet 1 TAB PO BID for 10 Days, #20 TAB 0 Refills Prov: NICOLE CONNELL APRN 04/11/18 Problem Qualifiers Primary Impression: Left shoulder pain Chronicity: acute Qualified Codes: M25.512 - Pain in left shoulder Additional Impressions: Left shoulder strain Encounter type: initial encounter Qualified Codes: S46.912A - Strain of unspecified muscle, fascia and tendon at shoulder and upper arm level, left arm , initial encounter NICOLE CONNELL APRN Apr 11, 2018 15:22
[2018-04-11] MEDS: ASPIRIN 325 MG TABLET PO ONE (16:17)
[2018-04-11] MEDS: KETOROLAC 15 MG/ML VIAL. IV ONE (17:11)
[2018-04-11] MEDS ORDERED: NAPR-514 PO (17:35)
[2018-04-11 17:37] VITALS: BP 144/94
== END 2018-04-11 17:46 | disposition home or self-care (01) ==
LOC: ER 13:33
DX: S46.912A Strain of unspecified muscle, fascia and tendon at shoulder and upper arm level, left arm, initial encounter (principal); R07.89 Other chest pain; E11.9 Type 2 diabetes mellitus without complications; R06.02 Shortness of breath; Z88.5 Allergy status to narcotic agent; Z91.018 Allergy to other foods; X58.XXXA Exposure to other specified factors, initial encounter; Y93.89 Activity, other specified; Y92.89 Other specified places as the place of occurrence of the external cause; Y99.8 Other external cause status
CPT/HCPCS: 36415; 71046; 80053; 81001; 81025; 84484; 85025; 85379; 85610; 93005; 96374; 99285; J1885

== ENCOUNTER 2019-01-22 07:47 | Emergency (ER) | payer SELFPAY ==
[~2019-01-22] VITALS: Ht 162.6 cm; Wt 91.2 kg
--- NOTE | 2019-01-22 08:35 | PHYS DOC ---
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 Patient complains of pain to lower abdomen. Describes her pain as sharp. Rates her pain as 5 out of 10. No associated symptoms. Denies recent travel, chest pain, shortness of breath, nausea/vomiting, blood in stool, diarrhea, blood in stool, headache, fever, dizziness. Review of Systems Review of Systems Constitutional: Denies fever or chills [] Eyes: Denies change in visual acuity, redness, or eye pain [] HENT: Denies nasal congestion or sore throat [] Respiratory: Denies cough or shortness of breath [] Cardiovascular: No additional information not addressed in HPI [] GI: Complains of abdominal pain. Denies nausea, vomiting, bloody stools or diarrhea [] : Denies dysuria or hematuria [] Musculoskeletal: Denies back pain or joint pain [] Integument: Denies rash or skin lesions [] Neurologic: Denies headache, focal weakness or sensory changes [] All other systems were reviewed and found to be within normal limits, except as documented in this note. Current Medications Current Medications Current Medications Medications (Trade) Dose Ordered Sig/Sylvia Start Time Stop Time Status Last Admin Dose Admin Azithromycin (Zithromax) 1,000 mg 1X ONCE 01/22/19 10:30 01/22/19 10:31 DC 01/22/19 10:27 1,000 MG Ceftriaxone Sodium (Rocephin Im) 250 mg 1X ONCE 01/22/19 10:30 01/22/19 10:31 DC 01/22/19 10:27 250 MG Ketorolac Tromethamine (Toradol 30mg Vial) 30 mg 1X ONCE 01/22/19 09:00 01/22/19 09:01 DC 01/22/19 09:08 30 MG Allergies Allergies Allergies Coded Allergies Type Severity Reaction Last Updated Verified broccoli Allergy Intermediate 07/10/16 Yes hydrocodone Allergy Intermediate Itching 07/07/16 No Physical Exam Physical Exam Constitutional: Well developed, well nourished, no acute distress, non-toxic appearance. [] HENT: Normocephalic, atraumatic Eyes: PERRLA, EOMI, conjunctiva normal, no discharge. [] Neck: Normal range of motion, no tenderness, supple, no stridor. [] Cardiovascular:Heart rate regular rhythm, no murmur [] Lungs & Thorax: Bilateral breath sounds clear to auscultation [] Abdomen: Bowel sounds normal, soft, mild lower abdominal tenderness, no masses, no pulsatile masses. [] Skin: Warm, dry, no erythema, no rash. [] Back: No tenderness, no CVA tenderness. [] Extremities: No tenderness, no cyanosis, no clubbing, ROM intact, no edema. [] Neurologic: Alert and oriented X 3, normal motor function, normal sensory function, no focal deficits noted. [] Psychologic: Affect normal, judgement normal, mood normal. [] Current Patient Data Vital Signs Vital Signs Date Time Temp Pulse Resp B/P (MAP) Pulse Ox O2 Delivery O2 Flow Rate FiO2 01/22/19 10:53 82 18 141/51 (81) 99 Room Air 01/22/19 08:38 98.2 98.2 Lab Values Laboratory Tests Test 01/22/19 08:24 01/22/19 08:46 01/22/19 09:00 POC Urine HCG, Qualitative Hcg negative (Negative) Urine Collection Type Void Urine Color Yellow Urine Clarity Clear Urine pH 5.5 Urine Specific [place] >=1.030 Urine Protein 30 mg/dL (NEG-TRACE) Urine Glucose (UA) >=1000 mg/dL (NEG) Urine Ketones (Stick) Negative mg/dL (NEG) Urine Blood Small (NEG) Urine Nitrite Negative (NEG) Urine Bilirubin Negative (NEG) Urine Urobilinogen Dipstick 0.2 mg/dL (0.2 mg/dL) Urine Leukocyte Esterase Negative (NEG) Urine RBC Occ /HPF (0-2) Urine WBC 0 /HPF (0-4) Urine Squamous Epithelial Cells Mod /LPF Urine Bacteria 0 /HPF (0-FEW) White Blood Count 5.5 x10^3/uL (4.0-11.0) Red Blood Count 4.85 x10^6/uL (3.50-5.40) Hemoglobin 13.3 g/dL (12.0-15.5) Hematocrit 40.0 % (36.0-47.0) Mean Corpuscular Volume 83 fL (79-100) Mean Corpuscular Hemoglobin 27 pg (25-35) Mean Corpuscular Hemoglobin Concent 33 g/dL (31-37) Red Cell Distribution Width 12.9 % (11.5-14.5) Platelet Count 317 x10^3/uL (140-400) Neutrophils (%) (Auto) 59 % (31-73) Lymphocytes (%) (Auto) 33 % (24-48) Monocytes (%) (Auto) 6 % (0-9) Eosinophils (%) (Auto) 1 % (0-3) Basophils (%) (Auto) 1 % (0-3) Neutrophils # (Auto) 3.2 x10^3uL (1.8-7.7) Lymphocytes # (Auto) 1.8 x10^3/uL (1.0-4.8) Monocytes # (Auto) 0.3 x10^3/uL (0.0-1.1) Eosinophils # (Auto) 0.0 x10^3/uL (0.0-0.7) Basophils # (Auto) 0.1 x10^3/uL (0.0-0.2) Sodium Level 136 mmol/L (136-145) Potassium Level 3.9 mmol/L (3.5-5.1) Chloride Level 99 mmol/L (98-107) Carbon Dioxide Level 27 mmol/L (21-32) Anion Gap 10 (6-14) Blood Urea Nitrogen 10 mg/dL (7-20) Creatinine 1.0 mg/dL (0.6-1.0) Estimated GFR (Cockcroft-Gault) 77.3 BUN/Creatinine Ratio 10 (6-20) Glucose Level 353 mg/dL (70-99) H Calcium Level 9.1 mg/dL (8.5-10.1) Total Bilirubin 0.2 mg/dL (0.2-1.0) Aspartate Amino Transferase (AST) 9 U/L (15-37) L Alanine Aminotransferase (ALT) 16 U/L (14-59) Alkaline Phosphatase 91 U/L (46-116) Total Protein 8.2 g/dL (6.4-8.2) Albumin 3.3 g/dL (3.4-5.0) L Albumin/Globulin Ratio 0.7 (1.0-1.7) L Lipase 230 U/L (73-393) Laboratory Tests 01/22/19 09:00 Laboratory Tests 01/22/19 09:00 EKG EKG [] Radiology/Procedures Radiology/Procedures []PROCEDURE: CT ABDOMEN PELVIS WO CONTRAST EXAM: CT Abdomen and Pelvis without IV contrast CLINICAL HISTORY: Lower abdominal pain. COMPARISON: none TECHNIQUE: Helical CT of the abdomen and pelvis without intravenous contrast. Axial, coronal and sagittal reformatted images were generated. PQRS compliance statement - One or more of the following individualized dose reduction techniques were utilized for this study: 1. Automated exposure control 2. Adjustment of the mA and/or kV according to patient size 3. Use of iterative reconstruction technique FINDINGS: Lack of intravenous contrast limits evaluation of solid organs, vasculature, and lymph nodes. Lower chest: Lung bases are clear Abdomen and Pelvis: A 2.8 cm low attenuating lesion is seen within the right hepatic lobe (series 2 image 28). Gallbladder is normal. No biliary ductal dilatation. Spleen is unremarkable. Adrenal glands are normal. Pancreas is unremarkable. No focal renal lesion. No renal tract calculus. No hydronephrosis or hydroureter. Bladder is unremarkable. Moderate to large volume colonic stool content is seen. Colonic diverticulosis without CT evidence for acute diverticulitis. Appendix is normal. No small or large bowel dilatation. Mild endometrial prominence, can be correlated with phase of menstrual cycle. No abdominal or pelvic lymphadenopathy. No abdominal or pelvic ascites. Bones: Mild degenerative changes of the spine are seen. IMPRESSION: 1. No renal tract calculus. 2. Moderate to large volume colonic stool content. No evidence for bowel obstruction. 3. Colonic diverticulosis without evidence for acute diverticulitis. 4. A 2.8 cm hypoattenuating right hepatic lobe lesion is seen measuring greater than simple fluid. Although this may represent a benign entity such as hemangioma, this is not well assessed on this noncontrast exam and other processes such as metastasis are not excluded, consider further evaluation with ultrasound or multiphase CT or MRI for further characterization. In addition this can be compared to prior exams if available. Course & Med Decision Making Course & Med Decision Making Pertinent Labs and Imaging studies reviewed. (See chart for details) []Discussed lab and imaging findings with patient. Patient's symptoms improved in the ED. States she's feeling much better. On re-examination abdomen is soft nontender nondistended. No peritoneal signs. Patient states that she might have a possible STD. Denies vaginal discharge, dysuria, hematuria or vaginal bleeding. Patient requested to be treated. Patient given Rocephin and azithromycin in the ED. Patient refused pelvic exam. We'll test urine sample as patient does not want to do exam. Discussed safe sex practice and follow-up STD testing. Discussed follow-up outpatient for CT findings of liver. Patient provided contact information/education for follow-up. Discussed reasons to return to the ED. Patient understands and agrees with plan. Dragon Disclaimer Dragon Disclaimer This electronic medical record was generated, in whole or in part, using a voice recognition dictation system. Departure Departure Impression: Primary Impression: Abdominal pain Additional Impressions: Hyperglycemia Concern about sexually transmitted disease in female withoutdiagnosis Disposition: 01 HOME, SELF-CARE Condition: STABLE Referrals: NO PCP (PCP) Patient Instructions: Abdominal Pain, Diabetes Meal Planning Guide, Sexually Transmitted Disease Scripts Metformin Hcl (METFORMIN HCL) 500 Mg Tablet 500 MG PO BIDWMEALS for ANTI-DIABETIC for 15 Days, #30 TAB 0 Refills Prov: RONY DAO 01/22/19 Problem Qualifiers RONY DAO Jan 22, 2019 08:34
[2019-01-22] MEDS ORDERED: KETOROLAC 30 MG/ML VIAL. IV ONE (09:00)
[2019-01-22 09:08] LABS: BILIRUBIN,URINE NEGATIVE (NEG); CLARITY,URINE CLEAR; COLOR,URINE YELLOW; NITRITE,URINE NEGATIVE (NEG); PH,URINE 5.5; PROTEIN,URINE 30 mg/dL (NEG-TRACE); UROBILINOGEN,URINE 0.2 mg/dL (0.2 mg/dL)
[2019-01-22 09:10] LABS: BASO # 0.1 x10^3/uL (0.0-0.2); BASO % 1 % (0-3); EOS % 1 % (0-3); HEMOGLOBIN 13.3 g/dL (12.0-15.5); LYMPH # 1.8 x10^3/uL (1.0-4.8); LYMPH % 33 % (24-48); MEAN CORPUSCULAR HEMOGLOBIN 27 pg (25-35); MEAN CORPUSCULAR HGB CONC 33 g/dL (31-37); MEAN CORPUSCULAR VOLUME 83 fL (79-100); MONO # 0.3 x10^3/uL (0.0-1.1); MONO % 6 % (0-9); NEUT # 3.2 x10^3uL (1.8-7.7); NEUT % 59 % (31-73); PLATELET COUNT 317 x10^3/uL (140-400); RED BLOOD COUNT 4.85 x10^6/uL (3.50-5.40); RED CELL DISTRIBUTION WIDTH 12.9 % (11.5-14.5); WHITE BLOOD COUNT 5.5 x10^3/uL (4.0-11.0)
[2019-01-22 09:30] LABS: BACTERIA,URINE 0 /HPF (0-FEW); RBC,URINE OCC /HPF (0-2); SQUAMOUS EPITHELIAL CELL,UR MOD /LPF; WBC,URINE 0 /HPF (0-4)
[2019-01-22 09:36] LABS: CALCIUM 9.1 mg/dL (8.5-10.1); GFR 77.3; POTASSIUM 3.9 mmol/L (3.5-5.1)
[2019-01-22 09:42] LABS: ALBUMIN 3.3 g/dL (3.4-5.0); ALBUMIN/GLOBULIN RATIO 0.7 (1.0-1.7); TOTAL BILIRUBIN 0.2 mg/dL (0.2-1.0); TOTAL PROTEIN 8.2 g/dL (6.4-8.2)
--- NOTE | 2019-01-22 09:59 | RAD ---
EXAM: CT Abdomen and Pelvis without IV contrast CLINICAL HISTORY: Lower abdominal pain. COMPARISON: none TECHNIQUE: Helical CT of the abdomen and pelvis without intravenous contrast. Axial, coronal and sagittal reformatted images were generated. PQRS compliance statement - One or more of the following individualized dose reduction techniques were utilized for this study: 1. Automated exposure control 2. Adjustment of the mA and/or kV according to patient size 3. Use of iterative reconstruction technique FINDINGS: Lack of intravenous contrast limits evaluation of solid organs, vasculature, and lymph nodes. Lower chest: Lung bases are clear Abdomen and Pelvis: A 2.8 cm low attenuating lesion is seen within the right hepatic lobe (series 2 image 28). Gallbladder is normal. No biliary ductal dilatation. Spleen is unremarkable. Adrenal glands are normal. Pancreas is unremarkable. No focal renal lesion. No renal tract calculus. No hydronephrosis or hydroureter. Bladder is unremarkable. Moderate to large volume colonic stool content is seen. Colonic diverticulosis without CT evidence for acute diverticulitis. Appendix is normal. No small or large bowel dilatation. Mild endometrial prominence, can be correlated with phase of menstrual cycle. No abdominal or pelvic lymphadenopathy. No abdominal or pelvic ascites. Bones: Mild degenerative changes of the spine are seen. IMPRESSION: 1. No renal tract calculus. 2. Moderate to large volume colonic stool content. No evidence for bowel obstruction. 3. Colonic diverticulosis without evidence for acute diverticulitis. 4. A 2.8 cm hypoattenuating right hepatic lobe lesion is seen measuring greater than simple fluid. Although this may represent a benign entity such as hemangioma, this is not well assessed on this noncontrast exam and other processes such as metastasis are not excluded, consider further evaluation with ultrasound or multiphase CT or MRI for further characterization. In addition this can be compared to prior exams if available. Electronically signed by: Kenny Tobar MD (01/22/2019 9:56 AM) [facility]
[2019-01-22] MEDS ORDERED: AZITHROMYCIN 250 MG TABLET. PO ONE (10:30)
[2019-01-22] MEDS ORDERED: cefTRIAXone IM 250 MG VIAL IM ONE (10:30)
[2019-01-22] MEDS ORDERED: METF500T16 PO (10:33)
[2019-01-22 10:53] VITALS: BP 141/51
== END 2019-01-22 10:59 | disposition home or self-care (01) ==
LOC: ER 07:47
DX: R10.30 Lower abdominal pain, unspecified (principal); R51 Headache; E11.65 Type 2 diabetes mellitus with hyperglycemia; Z20.2 Contact with and (suspected) exposure to infections with a predominantly sexual mode of transmission; Z88.5 Allergy status to narcotic agent; Z91.018 Allergy to other foods
CPT/HCPCS: 36415; 74176; 80053; 81001; 81025; 83690; 85025; 87491; 87591; 96372; 96374; 99285; J0696; J1885; Q0144

== ENCOUNTER 2019-03-18 10:56 | Emergency (ER) | payer SELFPAY ==
[~2019-03-18] VITALS: Ht 160 cm; Wt 91.2 kg
[2019-03-18 11:05] VITALS: BP 182/93
[2019-03-18] MEDS ORDERED: ALBUTEROL SULFATE 2.5 MG/3 ML NEBU. NEB ONE (11:15)
[2019-03-18] MEDS ORDERED: predniSONE 10 MG TABLET PO ONE (11:15)
--- NOTE | 2019-03-18 11:22 | PHYS DOC ---
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 Patient states it made her feel short of breath and she still felt slightly short of air. Patient states her chest now aces and her throat is sore. Patient rates her pain a 7 out of 10. Review of Systems Review of Systems Constitutional: Denies fever or chills [] Eyes: Denies change in visual acuity, redness, or eye pain [] HENT: Denies nasal congestion. sore throat [] Respiratory: cough or shortness of breath [] Cardiovascular: Chest aching from cough. GI: Denies abdominal pain, nausea, vomiting, bloody stools or diarrhea [] : Denies dysuria or hematuria [] Musculoskeletal: Denies back pain or joint pain [] Integument: Denies rash or skin lesions [] Neurologic: Denies headache, focal weakness or sensory changes [] Endocrine: Denies polyuria or polydipsia [] All other systems were reviewed and found to be within normal limits, except as documented in this note. Current Medications Current Medications Current Medications Medications (Trade) Dose Ordered Sig/Sylvia Start Time Stop Time Status Last Admin Dose Admin Albuterol Sulfate (Ventolin Neb Soln) 2.5 mg 1X ONCE 03/18/19 11:15 03/18/19 11:16 DC 03/18/19 11:28 2.5 MG Prednisone (Prednisone) 50 mg 1X ONCE 03/18/19 11:15 03/18/19 11:16 DC 03/18/19 11:19 50 MG Allergies Allergies Allergies Coded Allergies Type Severity Reaction Last Updated Verified broccoli Allergy Intermediate 07/10/16 Yes hydrocodone Allergy Intermediate Itching 07/07/16 No Physical Exam Physical Exam Constitutional: Well developed, well nourished, no acute distress, non-toxic appearance. [] HENT: Normocephalic, atraumatic, bilateral external ears normal, oropharynx moist, no oral exudates, nose normal. [] Eyes: PERRLA, EOMI, conjunctiva normal, no discharge. [] Neck: Normal range of motion, no tenderness, supple, no stridor. [] Cardiovascular:Heart rate regular rhythm, no murmur [] Lungs & Thorax: Bilateral breath sounds clear to auscultation [] Abdomen: Bowel sounds normal, soft, no tenderness, no masses, no pulsatile masses. [] Skin: Warm, dry, no erythema, no rash. [] Back: No tenderness, no CVA tenderness. [] Extremities: No tenderness, no cyanosis, no clubbing, ROM intact, no edema. [] Neurologic: Alert and oriented X 3, normal motor function, normal sensory function, no focal deficits noted. [] Psychologic: Affect normal, judgement normal, mood normal. Normal Physical Exam[] Current Patient Data Vital Signs Vital Signs Date Time Temp Pulse Resp B/P (MAP) Pulse Ox O2 Delivery O2 Flow Rate FiO2 03/18/19 11:29 Room Air 03/18/19 11:05 98.2 67 14 182/93 (122) 97 98.2 EKG EKG [] Radiology/Procedures Radiology/Procedures [] Impressions: [facility] [address] [place] [address] IMAGING REPORT Signed PATIENT: AMRY JUAREZ ACCOUNT: [id number] : 1985 LOCATION: ER AGE: 34 SEX: F EXAM STATUS: PRE ER ORD. PHYSICIAN: SIMI LUCIA APRN REASON: wet cough x1 day PROCEDURE: CHEST PA & LATERAL CHEST PA LATERAL History: Wet cough for one day Comparison: April 11, 2018 Findings: 2 views of the chest are submitted. There is no infiltrate, pneumothorax, or effusion. Pericardial cardiac silhouette is within normal limits in size. Impression: 1. There is no radiographic evidence of acute cardiopulmonary disease. Electronically signed by: Juani Vila MD (03/18/2019 11:40 AM) [facility] DICTATED and SIGNED BY: JUANI VILA MD DATE: 03/18/19 1140 Course & Med Decision Making Course & Med Decision Making Patient is a 34 year old female who presents with 0200 this morning with a coughing fit and states that she's been coughing up white or yellow mucus. Patient states it made her feel short of breath and she still felt slightly short of air. Patient states her chest now aces and her throat is sore. Patient rates her pain a 7 out of 10. Alert and oriented. Speaks in full clear sentences. Skin is pink warm and dry. Ambulatory with a steady gait. Vital signs within normal limits. Afebrile. Patient denies fever, abdominal pain, nausea, vomiting, diarrhea, nasal congestion, headache, dizziness, recent illness. Patient states her only history is diabetes. Lungs are clear to auscultation all lobes. Heart rate regular without murmur. Bilateral tympanic membranes are pearly white. Throat is not red or swollen and there are no exudates. Patient is given a dose of prednisone and a breathing treatment in the ED. Chest xray show no acute findings. Patient tolerated the breathing tx well. Patient will be treated with a Medrol dose pack, Tessalon Perles. Dragon Disclaimer Dragon Disclaimer This electronic medical record was generated, in whole or in part, using a voice recognition dictation system. Departure Departure Impression: Primary Impression: Cough Disposition: HOME, SELF-CARE Condition: STABLE Referrals: NO PCP (PCP) Patient Instructions: Cough, Adult Additional Instructions: Follow-up with primary care provider. Take medications as prescribed. Scripts Benzonatate (TESSALON PERLE) 100 Mg Capsule 1 CAP PO TID, #21 CAP Prov: SIMI LUCIA APRN 03/18/19 Methylprednisolone (MEDROL) 4 Mg Tab.ds.pk 1 PKG PO UD, #1 PKG Prov: SIMI LUCIA BONDING MACHINE SETTER 03/18/19 SIMI LUCIA APRN Mar 18, 2019 11:22
--- NOTE | 2019-03-18 11:43 | RAD ---
CHEST PA LATERAL History: Wet cough for one day Comparison: April 11, 2018 Findings: 2 views of the chest are submitted. There is no infiltrate, pneumothorax, or effusion. Pericardial cardiac silhouette is within normal limits in size. Impression: 1. There is no radiographic evidence of acute cardiopulmonary disease. Electronically signed by: Cullen Snowden MD (03/18/2019 11:40 AM) [facility]
[2019-03-18] MEDS ORDERED: METH4TAB2 PO (11:49)
[2019-03-18] MEDS ORDERED: BENZ100C PO (11:49)
== END 2019-03-18 11:57 | disposition home or self-care (01) ==
LOC: ER 10:56
DX: R05 Cough (principal); R07.89 Other chest pain; E11.9 Type 2 diabetes mellitus without complications; Z88.5 Allergy status to narcotic agent; Z91.018 Allergy to other foods
CPT/HCPCS: 71046; 94640; 99284; J7512; J7613

== ENCOUNTER 2019-09-30 11:21 | Emergency (ER) | payer SELFPAY ==
[~2019-09-30] VITALS: Ht 160 cm; Wt 85.0 kg
[~2019-09-30 11:21] MED LIST changes: -ACET500T55 PO; +ACET500T56 PO; +BENZ100C PO; +METH4TAB2 PO
[2019-09-30 12:02] VITALS: BP 173/91
--- NOTE | 2019-09-30 12:14 | PHYS DOC ---
Past Medical History Past Medical History: Diabetes-Type II Additional Past Medical Histor: L breast rib and stomach tumor/cyst removal Past Surgical History: Other Additional Past Surgical Histo: L breast rib and stomach tumor/cyst removal 07/2016 Smoking Status: Never Smoker Alcohol Use: None Drug Use: None Adult General Chief Complaint Chief Complaint: ABDOMINAL PAIN HPI HPI Patient is a 34 year old female with history of diabetes mellitus and previous STD who presents with complaint of abdominal pain and STD exposure. Patient is A3 with LMP of September 02 stated her partner for 1 year was diagnosed with Trichomona 4 days ago and she STD evaluation. Patient complaining of vaginal discharge for the last 4-5 days, vomiting. Patient denies and stated she is going to have her menstruation today or tomorrow. Review of Systems Review of Systems Constitutional: Denies fever or chills [] Eyes: Denies change in visual acuity, redness, or eye pain [] HENT: Denies nasal congestion or sore throat [] Respiratory: Denies cough or shortness of breath [] Cardiovascular: No additional information not addressed in HPI [] GI: Denies nausea, vomiting, bloody stools or diarrhea [] : Denies dysuria or hematuria [] Musculoskeletal: Denies back pain or joint pain [] Integument: Denies rash or skin lesions [] Neurologic: Denies headache, focal weakness or sensory changes [] Endocrine: Denies polyuria or polydipsia [] All other systems were reviewed and found to be within normal limits, except as documented in this note. Current Medications Current Medications Current Medications Medications (Trade) Dose Ordered Sig/Sylvia Start Time Stop Time Status Last Admin Dose Admin Azithromycin (Zithromax) 1,000 mg 1X ONCE 09/30/19 12:45 09/30/19 12:46 DC 09/30/19 12:55 1,000 MG Ceftriaxone Sodium (Rocephin Im) 1 gm 1X ONCE 09/30/19 12:45 09/30/19 12:46 DC 09/30/19 12:54 1 GM Metronidazole (Flagyl) 2,000 mg 1X ONCE 09/30/19 12:45 09/30/19 12:46 DC 09/30/19 12:55 2,000 MG Allergies Allergies Allergies Coded Allergies Type Severity Reaction Last Updated Verified broccoli Allergy Intermediate 07/10/16 Yes hydrocodone Allergy Intermediate Itching 07/07/16 No Physical Exam Physical Exam Constitutional: Well developed, well nourished, no acute distress, non-toxic appearance. [] HENT: Normocephalic, atraumatic. Eyes: PERRLA, EOMI, conjunctiva normal, no discharge. [] Neck: Normal range of motion, no tenderness, supple, no stridor. [] Cardiovascular:Heart rate regular rhythm, no murmur [] Lungs & Thorax: Bilateral breath sounds clear to auscultation [] Abdomen: Bowel sounds normal, soft, no tenderness, no masses, no pulsatile masses. Vaginal exam in present of trains dispatcher supervisor showed normal external vagina, moderate small amount of yellow discharge in the vagina with cervical erythema Skin: Warm, dry, no erythema, no rash. [] Back: No tenderness, no CVA tenderness. [] Extremities: No tenderness, no cyanosis, no clubbing, ROM intact, no edema. [] Neurologic: Alert and oriented X 3, no focal deficits noted. [] Psychologic: Affect normal, judgement normal, mood normal. [] Current Patient Data Vital Signs Vital Signs Date Time Temp Pulse Resp B/P (MAP) Pulse Ox O2 Delivery O2 Flow Rate FiO2 09/30/19 12:02 98.5 102 16 173/91 (118) 100 Room Air 98.5 Lab Values Laboratory Tests Test 09/30/19 11:44 09/30/19 12:01 09/30/19 12:57 Urine Collection Type Unknown Urine Color Yellow Urine Clarity Cloudy Urine pH 5.5 Urine Specific [place] >=1.030 Urine Protein >=300 mg/dL (NEG-TRACE) Urine Glucose (UA) >=1000 mg/dL (NEG) Urine Ketones (Stick) Trace mg/dL (NEG) Urine Blood Moderate (NEG) Urine Nitrite Negative (NEG) Urine Bilirubin Negative (NEG) Urine Urobilinogen Dipstick 0.2 mg/dL (0.2 mg/dL) Urine Leukocyte Esterase Moderate (NEG) Urine RBC >40 /HPF (0-2) Urine WBC Tntc /HPF (0-4) Urine Squamous Epithelial Cells Mod /LPF Urine Bacteria Few /HPF (0-FEW) Urine Hyaline Casts Many /HPF Urine Mucus Mod /LPF Urine Trichomonas Present POC Urine HCG, Qualitative Hcg positive (Negative) Glucose (Fingerstick) 299 mg/dL (70-99) H Microbiology 3/1/20 Wet Prep - Final, Complete EKG EKG [] Radiology/Procedures Radiology/Procedures [] Course & Med Decision Making Course & Med Decision Making Pertinent Labs reviewed. (See chart for details) Evaluation of patient in ER showed 34-year-old female patient presented for STD evaluation after STD exposure. Patient had positive test, UTI and blood sugar of 299 without taking blood sugar medication for the last few days. Patient treated with oral Flagyl and Zithromax and IM Rocephin. Patient was advised to follow-up with her UNDER[employer] STITCHER for 2-3 days primary care physician in couple days for diabetes mellitus evaluation and treatment. Dragon Disclaimer Dragon Disclaimer This electronic medical record was generated, in whole or in part, using a voice recognition dictation system. Departure Departure Impression: Primary Impression: Trichomonal vaginitis during in first trimester Additional Impressions: Urinary tract infection affecting Positive urine test Uncontrolled diabetes mellitus Bacterial infection Disposition: HOME, SELF-CARE (at 1304) Condition: STABLE Referrals: NO PCP (PCP) GREG SHAH MD Patient Instructions: ABCs of , Bacterial Vaginosis, - Urinary Tract Infection, Trichomoniasis Additional Instructions: Drink plenty of liquids Follow-up with your primary care physician in 2-3 days Return to ER if not getting better Follow-up with [facility] in 2 or 3 days Thank you for visiting [facility]. We appreciate you trusting us with your care. If any additional problems come up don't hesitate to return to visit us. Please follow up with your primary care provider so they can plan additional care if needed and know about the problem that you had. If symptoms worsen come back to the Emergency Department. Any concerning symptoms that start such as chest pain, shortness of air, weakness or numbness on one side of the body, running high fevers or any other concerning symptoms return to the ER. Scripts Cephalexin (KEFLEX) 500 Mg Capsule 1 CAP PO Q8HRS, #21 CAP 0 Refills Prov: JONATAN CHERRY MD 09/30/19 Problem Qualifiers Additional Impressions: Uncontrolled diabetes mellitus Diabetes mellitus type: other specified (including LENNOX) Glycemic state: with hyperglycemia Qualified Codes: E13.65 - Other specified diabetes mellitus with hyperglycemia JONATAN CHERRY MD Sep 30, 2019 12:13
[2019-09-30 12:25] LABS: BILIRUBIN,URINE NEGATIVE (NEG); CLARITY,URINE CLOUDY; COLOR,URINE YELLOW; NITRITE,URINE NEGATIVE (NEG); PH,URINE 5.5; PROTEIN,URINE >=300 mg/dL (NEG-TRACE); UROBILINOGEN,URINE 0.2 mg/dL (0.2 mg/dL)
[2019-09-30 12:37] LABS: SQUAMOUS EPITHELIAL CELL,UR MOD /LPF
[2019-09-30 12:38] LABS: BACTERIA,URINE FEW /HPF (0-FEW); HYALINE CASTS, URINE MANY /HPF; RBC,URINE >40 /HPF (0-2); WBC,URINE TNTC /HPF (0-4)
[2019-09-30 12:39] LABS: TRICHOMONAS,URINE PRESENT
[2019-09-30] MEDS ORDERED: metroNIDAZOLE 500 MG TABLET PO ONE (12:45)
[2019-09-30] MEDS ORDERED: AZITHROMYCIN 250 MG TABLET. PO ONE (12:45)
[2019-09-30] MEDS ORDERED: cefTRIAXone IM 1 GM VIAL IM ONE (12:45)
[2019-09-30] MEDS ORDERED: CEPH-264 PO (13:11)
[2019-10-02 19:09] LABS: GC PROBE Negative (Negative)
== END 2019-09-30 13:23 | disposition home or self-care (01) ==
LOC: ER 11:21
DX: O98.811 Other maternal infectious and parasitic diseases complicating pregnancy, first trimester (principal); A59.01 Trichomonal vulvovaginitis; O23.41 Unspecified infection of urinary tract in pregnancy, first trimester; O24.111 Pre-existing type 2 diabetes mellitus, in pregnancy, first trimester; O98.311 Other infections with a predominantly sexual mode of transmission complicating pregnancy, first trimester; E11.65 Type 2 diabetes mellitus with hyperglycemia; L53.9 Erythematous condition, unspecified; Z98.890 Other specified postprocedural states; Z91.018 Allergy to other foods
CPT/HCPCS: 81001; 81025; 82962; 87086; 87491; 87591; 96372; 99284; J0696; Q0111

== ENCOUNTER 2019-11-04 12:01 | Emergency (ER) | payer SELFPAY ==
[~2019-11-04] VITALS: Ht 162.6 cm; Wt 110.0 kg
[~2019-11-04 12:01] MED LIST changes: +CEPH-264 PO
--- NOTE | 2019-11-04 12:41 | PHYS DOC ---
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 Patient reports she had a positive test on September 02, 2019. She states on October 01, 2019 she developed abdominal pain, was seen at [facility] where she was hospitalized for 3 days for ectopic . She states she was given a couple shots to help terminate the . She states a couple days later she had bleeding for a few days which stopped. She states she started bleeding yesterday and developed moderate left lower quadrant abdominal pain radiating to her back. Patient describes the pain as cramping and intermittent. She states she has used 3 feminine pads since yesterday. Denies any nausea, vomiting. She is a Review of Systems Review of Systems Constitutional: Denies fever or chills [] Eyes: Denies change in visual acuity, redness, or eye pain [] HENT: Denies nasal congestion or sore throat [] Respiratory: Denies cough or shortness of breath [] Cardiovascular: No additional information not addressed in HPI [] GI: Reports abdominal pain in , denies nausea, vomiting, bloody stools or diarrhea [] : Denies dysuria or hematuria [] Musculoskeletal: Denies back pain or joint pain [] Integument: Denies rash or skin lesions [] Neurologic: Denies headache, focal weakness or sensory changes [] All other systems were reviewed and found to be within normal limits, except as documented in this note. Allergies Allergies Allergies Coded Allergies Type Severity Reaction Last Updated Verified broccoli Allergy Intermediate 07/10/16 Yes hydrocodone Allergy Intermediate Itching 07/07/16 No Physical Exam Physical Exam Constitutional: Well developed, well nourished, no acute distress, non-toxic appearance. [] HENT: Normocephalic, atraumatic, bilateral external ears normal, oropharynx moist, no oral exudates, nose normal. [] Eyes: PERRLA, EOMI, conjunctiva normal, no discharge. [] Neck: Normal range of motion, no tenderness, supple, no stridor. [] Cardiovascular:Heart rate regular rhythm, no murmur [] Lungs & Thorax: Bilateral breath sounds clear to auscultation [] Abdomen: Bowel sounds normal, soft, no masses, no pulsatile masses. [] Pelvic exam External pelvic appears normal, cervix is visualized, no CMT, moderate left adnexal tenderness, trace amount of bright red blood in the vaginal vault Skin: Warm, dry, no erythema, no rash. [] Back: No tenderness, no CVA tenderness. [] Extremities: No tenderness, no cyanosis, no clubbing, ROM intact, no edema. [] Neurologic: Alert and oriented X 3, normal motor function, normal sensory function, no focal deficits noted. [] Psychologic: Affect normal, judgement normal, mood normal. [] Current Patient Data Vital Signs Vital Signs Date Time Temp Pulse Resp B/P (MAP) Pulse Ox O2 Delivery O2 Flow Rate FiO2 11/04/19 12:18 98.4 101 16 181/79 (113) 98 Room Air 98.4 Lab Values Laboratory Tests Test 11/04/19 12:15 11/04/19 12:38 POC Urine HCG, Qualitative Hcg positive (Negative) White Blood Count 5.6 x10^3/uL (4.0-11.0) Red Blood Count 4.54 x10^6/uL (3.50-5.40) Hemoglobin 12.3 g/dL (12.0-15.5) Hematocrit 37.6 % (36.0-47.0) Mean Corpuscular Volume 83 fL (79-100) Mean Corpuscular Hemoglobin 27 pg (25-35) Mean Corpuscular Hemoglobin Concent 33 g/dL (31-37) Red Cell Distribution Width 14.6 % (11.5-14.5) H Platelet Count 385 x10^3/uL (140-400) Neutrophils (%) (Auto) 54 % (31-73) Lymphocytes (%) (Auto) 36 % (24-48) Monocytes (%) (Auto) 8 % (0-9) Eosinophils (%) (Auto) 2 % (0-3) Basophils (%) (Auto) 0 % (0-3) Neutrophils # (Auto) 3.0 x10^3/uL (1.8-7.7) Lymphocytes # (Auto) 2.0 x10^3/uL (1.0-4.8) Monocytes # (Auto) 0.4 x10^3/uL (0.0-1.1) Eosinophils # (Auto) 0.1 x10^3/uL (0.0-0.7) Basophils # (Auto) 0.0 x10^3/uL (0.0-0.2) Urine Color Red Urine Clarity Cloudy Urine pH (<5.0-8.0) Urine Specific [place] (1.000-1.030) Urine Protein mg/dL (NEG-TRACE) Urine Glucose (UA) mg/dL (NEG) Urine Ketones (Stick) mg/dL (NEG) Urine Blood (NEG) Urine Nitrite (NEG) Urine Bilirubin (NEG) Urine Urobilinogen Dipstick mg/dL (0.2 mg/dL) Urine Leukocyte Esterase (NEG) Urine RBC Tntc /HPF (0-2) Urine WBC Rare /HPF (0-4) Urine Squamous Epithelial Cells Few /LPF Urine Bacteria Few /HPF (0-FEW) Maternal Serum HCG Beta Subunit 75 mIU/mL (0-5) H Sodium Level 137 mmol/L (136-145) Potassium Level 4.2 mmol/L (3.5-5.1) Chloride Level 102 mmol/L (98-107) Carbon Dioxide Level 27 mmol/L (21-32) Anion Gap 8 (6-14) Blood Urea Nitrogen 13 mg/dL (7-20) Creatinine 1.0 mg/dL (0.6-1.0) Estimated GFR (Cockcroft-Gault) 76.8 BUN/Creatinine Ratio 13 (6-20) Glucose Level 217 mg/dL (70-99) H Calcium Level 8.8 mg/dL (8.5-10.1) Total Bilirubin 0.2 mg/dL (0.2-1.0) Aspartate Amino Transferase (AST) 10 U/L (15-37) L Alanine Aminotransferase (ALT) 13 U/L (14-59) L Alkaline Phosphatase 62 U/L (46-116) Total Protein 7.6 g/dL (6.4-8.2) Albumin 2.7 g/dL (3.4-5.0) L Albumin/Globulin Ratio 0.6 (1.0-1.7) L Urine Opiates Screen Neg (NEG) Urine Methadone Screen Neg (NEG) Urine Barbiturates Neg (NEG) Urine Phencyclidine Screen Neg (NEG) Urine Amphetamine/Methamphetamine Neg (NEG) Urine Benzodiazepines Screen Neg (NEG) Urine Cocaine Screen Neg (NEG) Urine Cannabinoids Screen Neg (NEG) Ethyl Alcohol Level < 10 mg/dL (0-10) Urine Ethyl Alcohol Neg (NEG) Laboratory Tests 11/04/19 12:38 Laboratory Tests 11/04/19 12:38 Microbiology 11/04/19 Wet Prep - Final, Complete EKG EKG [] Radiology/Procedures Radiology/Procedures []PROCEDURE: OB <14 WKS W/TV EXAM: Obstetrics sonogram. HISTORY: Pelvic pain in . Recent ectopic . TECHNIQUE: Transabdominal and transvaginal sonographic imaging of the pelvis was performed. COMPARISON: None. FINDINGS: The uterus measures 12.0 x 7.0 x 6.0 cm. No intrauterine gestational sac is seen. The endometrial stripe measures 1.5 cm. The ovaries are normal in size and demonstrate normal blood flow. There is a 2.2 cm suspected left corpus luteum cyst. There is no pelvic free fluid. IMPRESSION: 1. No evidence of an intrauterine gestational sac. There is a prominent endometrial stripe. 2. 2.2 cm suspected left corpus luteum cyst. The possibility of a persistent left ovarian ectopic gestation is not excluded given the reported history of ectopic . There is no beta-hCG level for correlation at the time of this exam. Correlation with a beta-hCG level is indicated. Electronically signed by: Maureen Estrada MD (11/04/2019 1:27 PM) [facility] [place] DICTATED and SIGNED BY: MAUREEN ESTRADA MD DATE: 11/04/19 4436 Course & Med Decision Making Course & Med Decision Making Pertinent Labs and Imaging studies reviewed. (See chart for details) This is a 34-year-old female patient presenting to the ED today complaining of abdominal pain in . She is a 4 para 0. See HPI. She was seen at [facility] on October 01, 2019 and had an ectopic was given 2 injections that sound like methotrexate. She developed left lower quadrant abdominal pain yesterday with bleeding. Positive urine hCG, beta hCG 75, wet prep negative for any acute findings, trace amount of bleeding noted on pelvic exam. CBC with a normal WBC, normal hemoglobin and hematocrit, CMP with glucose of 217, patient has history of diabetes type 2. OB ultrasound-no IUP, there is prominent endometrial stripe. 2.2 cm suspected left corpus luteum cyst. The possibility of a persistent left ovarian ectopic gestation is not excluded given the reported history of ectopic . There is no beta-hCG level for correlation at the time of this exam. Correlation with a beta-hCG level is indicated. I spoke with Dr. Morris who requested we discharge patient to home with pain medicine and she can follow-up with her in the clinic tomorrow. Patient reports she has been following up with [facility] and her beta-hCG has been dropping. She states she gets seen every Tuesday and they draw her beta-hCG. She states the last time the beta-hCG was checked Tuesday last week it was around 200s. Patient will follow up with [facility]. Provided return precautions. Blood group A+ Dragon Disclaimer Dragon Disclaimer This electronic medical record was generated, in whole or in part, using a voice recognition dictation system. Departure Departure Impression: Primary Impression: Ectopic Additional Impression: Hyperglycemia due to type 2 diabetes mellitus Disposition: HOME, SELF-CARE Condition: STABLE Referrals: UNKNOWN PCP NAME (PCP) GREG SHAH MD follow up in 1-2 days Patient Instructions: Ectopic , [id number] Additional Instructions: You were seen for abdominal pain in . You were noted to have an ongoing ectopic that is in the process of terminating. Please follow- up with your [employer] M[employer]LE CHECKOUT TECHNICIAN tomorrow and they can recheck your Beta HCG. Today your Beta hcg was 75. You can follow-up with the provided [employer] CHECK[employer] TECHNICIAN on discharge paperwork too if you want. Take the pain medicine as prescribed. Scripts Ondansetron (ONDANSETRON ODT) 4 Mg Tab.rapdis 1 TAB PO PRN Q6-8HRS, #16 TAB Prov: MUTUNGA,BARRETT [employer] TE[employer] MEMBER 4/5/20 Hydrocodone/Apap 5-325 (NORCO 5-325 TABLET) 1 Each Tablet 1 TAB PO Q6-8HRS PRN for PAIN, #20 TAB Prov: MUTUNGA,BARRETT [employer] MEMBER 4/5/20 Problem Qualifiers Primary Impression: Ectopic Location of ectopic : ovarian Intrauterine status: without intrauterine Laterality: left Qualified Codes: O00.202 - Left ovarian without intrauterine Additional Impression: Hyperglycemia due to type 2 diabetes mellitus Diabetes mellitus chcf insulin use: unspecified intermediate designer insulin use status Qualified Codes: E11.65 - Type 2 diabetes mellitus with hyperglycemia BARRETT VILLA [employer] TE[employer] MEMBER Nov 04, 2019 12:41
[2019-11-04 13:00] LABS: CALCIUM 8.8 mg/dL (8.5-10.1); GFR 76.8; POTASSIUM 4.2 mmol/L (3.5-5.1)
[2019-11-04 13:05] LABS: BASO % 0 % (0-3); EOS # 0.1 x10^3/uL (0.0-0.7); EOS % 2 % (0-3); HEMATOCRIT 37.6 % (36.0-47.0); HEMOGLOBIN 12.3 g/dL (12.0-15.5); LYMPH % 36 % (24-48); MEAN CORPUSCULAR HEMOGLOBIN 27 pg (25-35); MEAN CORPUSCULAR HGB CONC 33 g/dL (31-37); MEAN CORPUSCULAR VOLUME 83 fL (79-100); MONO # 0.4 x10^3/uL (0.0-1.1); MONO % 8 % (0-9); NEUT % 54 % (31-73); PLATELET COUNT 385 x10^3/uL (140-400); RED BLOOD COUNT 4.54 x10^6/uL (3.50-5.40); RED CELL DISTRIBUTION WIDTH 14.6 % (11.5-14.5); WHITE BLOOD COUNT 5.6 x10^3/uL (4.0-11.0)
[2019-11-04 13:06] LABS: ALBUMIN 2.7 g/dL (3.4-5.0); ALBUMIN/GLOBULIN RATIO 0.6 (1.0-1.7); TOTAL BILIRUBIN 0.2 mg/dL (0.2-1.0); TOTAL PROTEIN 7.6 g/dL (6.4-8.2)
[2019-11-04 13:08] LABS: CLARITY,URINE CLOUDY; COLOR,URINE RED
[2019-11-04 13:15] LABS: BARBITURATES NEG (NEG); BENZODIAZEPINES NEG (NEG); CANNABINOIDS NEG (NEG); COCAINE NEG (NEG); METHADONE NEG (NEG); OPIATES NEG (NEG); PHENCYCLIDINE NEG (NEG)
[2019-11-04 13:19] LABS: AMPHETAMINE/METHAMPHETAMINE NEG (NEG)
[2019-11-04 13:24] LABS: RBC,URINE TNTC /HPF (0-2)
[2019-11-04 13:25] LABS: BACTERIA,URINE FEW /HPF (0-FEW); SQUAMOUS EPITHELIAL CELL,UR FEW /LPF; WBC,URINE RARE /HPF (0-4)
--- NOTE | 2019-11-04 13:29 | RAD ---
EXAM: Obstetrics sonogram. HISTORY: Pelvic pain in . Recent ectopic . TECHNIQUE: Transabdominal and transvaginal sonographic imaging of the pelvis was performed. COMPARISON: None. FINDINGS: The uterus measures 12.0 x 7.0 x 6.0 cm. No intrauterine gestational sac is seen. The endometrial stripe measures 1.5 cm. The ovaries are normal in size and demonstrate normal blood flow. There is a 2.2 cm suspected left corpus luteum cyst. There is no pelvic free fluid. IMPRESSION: 1. No evidence of an intrauterine gestational sac. There is a prominent endometrial stripe. 2. 2.2 cm suspected left corpus luteum cyst. The possibility of a persistent left ovarian ectopic gestation is not excluded given the reported history of ectopic . There is no beta-hCG level for correlation at the time of this exam. Correlation with a beta-hCG level is indicated. Electronically signed by: Maureen Bear MD (11/04/2019 1:27 PM) [facility]
[2019-11-04] MEDS ORDERED: ONDA4TAB12 PO (15:30)
[2019-11-04] MEDS ORDERED: HYDR-3164 PO (15:30)
[2019-11-04 15:41] VITALS: BP 130/58
[2019-11-06 18:08] LABS: GC PROBE Negative (Negative)
== END 2019-11-04 15:39 | disposition home or self-care (01) ==
LOC: ER 12:01
DX: O00.202 Left ovarian pregnancy without intrauterine pregnancy (principal); E11.65 Type 2 diabetes mellitus with hyperglycemia; R10.32 Left lower quadrant pain; R25.2 Cramp and spasm; Z98.890 Other specified postprocedural states; Z88.8 Allergy status to other drugs, medicaments and biological substances
CPT/HCPCS: 76801; 76817; 80053; 80307; 81001; 81025; 84702; 85025; 86850; 86870; 86900; 86901; 87491; 87591; 99285; G0480; Q0111; 36415

== ENCOUNTER 2020-07-06 15:08 | Emergency (ER) | payer OTHER ==
[~2020-07-06] VITALS: Ht 157.5 cm; Wt 90.0 kg
[~2020-07-06 15:08] MED LIST changes: +HYDR-3164 PO; +ONDA4TAB12 PO
[2020-07-06 16:29] VITALS: BP 214/97
[2020-07-06 16:56] LABS: BILIRUBIN,URINE NEGATIVE (NEG); CLARITY,URINE CLEAR; COLOR,URINE YELLOW; NITRITE,URINE NEGATIVE (NEG); PH,URINE 6.5 (<5.0-8.0); PROTEIN,URINE >=300 mg/dL (NEG-TRACE)
[2020-07-06] MEDS ORDERED: metroNIDAZOLE 500 MG TABLET PO ONE (17:00)
[2020-07-06] MEDS ORDERED: cefTRIAXone IM 250 MG VIAL IM ONE (17:00)
[2020-07-06] MEDS ORDERED: AZITHROMYCIN 250 MG TABLET. PO ONE (17:00)
[2020-07-06 17:02] LABS: BACTERIA,URINE MOD /HPF (0-FEW)
[2020-07-06] MEDS ORDERED: METR500T PO (17:22)
[2020-07-06] MEDS ORDERED: LABE100T5 PO (17:22)
--- NOTE | 2020-07-06 17:23 | PHYS DOC ---
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 Patient denies any chance she is , she states she started her menstrual cycle 6 days ago and is currently spotting. Denies any nausea vomiting. Denies any fever. Reports concerns for STDs and would like to be tested and treated. She also reports she has lost her sense of smell and taste the week before Thanks and was around the mother who was positive for COVID-19. Review of Systems: Review of Systems: Constitutional: Denies fever or chills. [] Eyes: Denies change in visual acuity. [] HENT: Reports loss of smell and taste. Denies nasal congestion or sore throat. [] Respiratory: Denies cough or shortness of breath. [] Cardiovascular: Denies chest pain or edema. [] GI: Reports lower abdominal pain, concern for STDs, denies nausea, vomiting, bloody stools or diarrhea. [] : Denies dysuria. [] Musculoskeletal: Denies back pain or joint pain. [] Integument: Denies rash. [] Neurologic: Denies headache, focal weakness or sensory changes. [] Endocrine: Denies polyuria or polydipsia. [] Lymphatic: Denies swollen glands. [] Psychiatric: Denies depression or anxiety. [] Heart Score: Risk Factors: Risk Factors: DM, Current or recent (<one month) smoker, HTN, HLP, family history of CAD, obesity. Risk Scores: Score 0 - 3: 2.5% MACE over next 6 weeks - Discharge Home Score 4 - 6: 20.3% MACE over next 6 weeks - Admit for Clinical Observation Score 7 - 10: 72.7% MACE over next 6 weeks - Early Invasive Strategies Current Medications: Current Medications Medications (Trade) Dose Ordered Sig/Sylvia Start Time Stop Time Status Last Admin Dose Admin Azithromycin (Zithromax) 1,000 mg 1X ONCE 07/06/20 17:00 07/06/20 17:01 DC Ceftriaxone Sodium (Rocephin Im) 250 mg 1X ONCE 07/06/20 17:00 07/06/20 17:01 DC Metronidazole (Flagyl) 2,000 mg 1X ONCE 07/06/20 17:00 07/06/20 17:01 DC Allergies: Allergies: Allergies Coded Allergies Type Severity Reaction Last Updated Verified broccoli Allergy Intermediate 07/10/16 Yes hydrocodone Allergy Intermediate Itching 07/07/16 No Physical Exam: PE: Constitutional: Well developed, well nourished, no acute distress, non-toxic appearance. [] HENT: Normocephalic, atraumatic, bilateral external ears normal, oropharynx moist, no oral exudates, nose normal. [] Eyes: PERRLA, EOMI, conjunctiva normal, no discharge. [] Neck: Normal range of motion, no tenderness, supple, no stridor. [] Cardiovascular:Heart rate regular rhythm, no murmur [] Lungs & Thorax: Bilateral breath sounds clear to auscultation [] Abdomen: Bowel sounds normal, soft, no tenderness, no masses, no pulsatile masses. [] Pelvic exam External pelvic appears normal, cervix is visualized, closed, no CMT, no adnexal tenderness, trace amount of bright red blood in the vaginal vault Skin: Warm, dry, no erythema, no rash. [] Back: No tenderness, no CVA tenderness. [] Extremities: No tenderness, no cyanosis, no clubbing, ROM intact, no edema. [] Neurologic: Alert and oriented X 3, normal motor function, normal sensory function, no focal deficits noted. [] Psychologic: Affect normal, judgement normal, mood normal. [] Current Patient Data: Labs: Laboratory Tests Test 07/06/20 15:29 07/06/20 15:44 Urine Collection Type Unknown Urine Color Yellow Urine Clarity Clear Urine pH 6.5 (<5.0-8.0) Urine Specific [place] >=1.030 (1.000-1.030) Urine Protein >=300 mg/dL (NEG-TRACE) Urine Glucose (UA) >=1000 mg/dL (NEG) Urine Ketones (Stick) Negative mg/dL (NEG) Urine Blood Large (NEG) Urine Nitrite Negative (NEG) Urine Bilirubin Negative (NEG) Urine Urobilinogen Dipstick 1.0 mg/dL (0.2 mg/dL) Urine Leukocyte Esterase Negative (NEG) Urine RBC 3-5 /HPF (0-2) Urine WBC 1-4 /HPF (0-4) Urine Squamous Epithelial Cells Many /LPF Urine Bacteria Mod /HPF (0-FEW) POC Urine HCG, Qualitative Hcg negative (Negative) Microbiology 07/06/20 Wet Prep - Final, Complete Vital Signs: Vital Signs Date Time Temp Pulse Resp B/P (MAP) Pulse Ox O2 Delivery O2 Flow Rate FiO2 07/06/20 16:29 98.7 93 16 214/97 (136) 98 Room Air 98.7 EKG: EKG: [] Radiology/Procedures: Radiology/Procedures: [] Course & Med Decision Making: Course & Med Decision Making Pertinent Labs and Imaging studies reviewed. (See chart for details) This is a 35-year-old female patient presented to the ED today complaining of lower abdominal pain, concern for STDs as well as Covid exposure with the symptoms. Her symptoms include loss of taste and smell. Was around the mother who is also positive for Covid. Patient was tested for COVID-19. Results will be called to her when available. Quarantine measures provided Negative urine hCG. Urine analysis negative for infection. Wet prep noted for BV. Discharged on Flagyl. Treated for STDs in the ED. Education provided. Valarie Disclaimer: Valarie Disclaimer: This electronic medical record was generated, in whole or in part, using a voice recognition dictation system. Departure Departure Impression: Primary Impression: Concern about sexually transmitted disease in female withoutdiagnosis Additional Impressions: Person under investigation for COVID-19 Bacterial vaginosis Disposition: 01 DC HOME SELF CARE/HOMELESS Condition: STABLE Referrals: NO PCP (PCP) follow up with your doctor in one week Patient Instructions: Bacterial Vaginosis, [id number], Sexually Transmitted Disease Additional Instructions: You were tested and treated for sexually transmitted diseases in the emergency room. Do not have any intercourse for 1 week. Contact all your partners, let them know you are treated for STDs and ask them to seek treatment too. Use protection at all times. You also have bacterial vaginosis please complete your antibiotics. You were tested for COVID19, we will call you in the course of this week and give the results. Quarantine yourself until you hear from us. Maintain good hand hygiene. Scripts Labetalol Hcl (LABETALOL HCL) 100 Mg Tablet 1 TAB PO DAILY, #90 TAB 0 Refills Prov: BARRETT VILLA APRN 07/06/20 Metronidazole (FLAGYL) 500 Mg Tablet 1 TAB PO BID, #10 TAB Prov: BARRETT VILLA APRN 07/06/20 BARRETT VILLA APRN Jul 06, 2020 17:23
[2020-07-08 19:11] LABS: GC PROBE Negative (Negative)
--- NOTE | 2020-07-09 09:40 | NUR ---
IP: Attempted to call COVID results. No answer. Left a voicemail to return the call.
--- NOTE | 2020-07-09 10:33 | NUR ---
IP: Pt returned the call. Informed her of the positive COVID test and the need to quarantine for 14 days. Pt verbalized understanding.
== END 2020-07-06 18:05 | disposition home or self-care (01) ==
LOC: ER 15:08
DX: U07.1 COVID-19 (principal); N76.0 Acute vaginitis; B96.89 Other specified bacterial agents as the cause of diseases classified elsewhere; Z20.2 Contact with and (suspected) exposure to infections with a predominantly sexual mode of transmission; E11.9 Type 2 diabetes mellitus without complications; I10 Essential (primary) hypertension; Z88.5 Allergy status to narcotic agent; Z91.018 Allergy to other foods
CPT/HCPCS: 81001; 81025; 87491; 87591; 96372; 99284; C9803; J0696; Q0111; U0003; 99283

== ENCOUNTER 2020-09-15 11:27 | Emergency (ER) | payer SELFPAY ==
[~2020-09-15] VITALS: Ht 160 cm; Wt 83.0 kg
[~2020-09-15 11:27] MED LIST changes: +LABE100T5 PO
[2020-09-15] MEDS ORDERED: KETOROLAC 60 MG/2 ML VIAL. IM ONE (12:15)
[2020-09-15] MEDS ORDERED: predniSONE 20 MG TABLET PO ONE (12:15)
[2020-09-15] MEDS ORDERED: cloNIDine HCL 0.1 MG TABLET PO ONE (12:15)
[2020-09-15] MEDS ORDERED: DOCUSATE 100 MG/10 ML SOLUTION. AD ONE (12:15)
--- NOTE | 2020-09-15 12:24 | PHYS DOC ---
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 States symptoms she cannot hear from the right ear. Denies any fever, coughing or congestion. Patient is also complaining of mild intermittent frontal headache, intermittently since yesterday, denies any nausea, vomiting. Denies any photophobia. She states she has not taken anything for her pain. She reports history of high blood pressure and states she does not take anything for hypertension. (BARRETT VILLA APRN) Review of Systems: Review of Systems: Constitutional: Denies fever or chills. [] Eyes: Denies change in visual acuity. [] HENT: Reports right ear pain due to earwax, denies nasal congestion or sore throat. [] Respiratory: Denies cough or shortness of breath. [] Cardiovascular: Denies chest pain or edema. [] GI: Denies abdominal pain, nausea, vomiting, bloody stools or diarrhea. [] : Denies dysuria. [] Musculoskeletal: Denies back pain or joint pain. [] Integument: Denies rash. [] Neurologic: Reports headaches, denies denies focal weakness or sensory changes. [] Psychiatric: Denies depression or anxiety. [] (BARRETT VILLA APRN) Heart Score: Risk Factors: Risk Factors: DM, Current or recent (<one month) smoker, HTN, HLP, family history of CAD, obesity. Risk Scores: Score 0 - 3: 2.5% MACE over next 6 weeks - Discharge Home Score 4 - 6: 20.3% MACE over next 6 weeks - Admit for Clinical Observation Score 7 - 10: 72.7% MACE over next 6 weeks - Early Invasive Strategies (BARRETT VILLA PATROL SUPERVISOR) Current Medications: Current Medications Medications (Trade) Dose Ordered Sig/Sylvia Start Time Stop Time Status Last Admin Dose Admin Clonidine HCl (Catapres) 0.2 mg 1X ONCE 09/15/20 12:15 09/15/20 12:16 DC Docusate Sodium (Colace Solution) 100 mg 1X ONCE 09/15/20 12:15 09/15/20 12:16 DC Ketorolac Tromethamine (Toradol Im) 60 mg 1X ONCE 09/15/20 12:15 09/15/20 12:16 DC Prednisone (Prednisone) 60 mg 1X ONCE 09/15/20 12:15 09/15/20 12:16 DC (MAREABARRETT PATROL SUPERVISOR) Allergies: Allergies: Allergies Coded Allergies Type Severity Reaction Last Updated Verified broccoli Allergy Intermediate 07/10/16 Yes hydrocodone Allergy Intermediate Itching 07/07/16 No (BARRETT VILLA PATROL SUPERVISOR) Physical Exam: PE: Constitutional: Well developed, well nourished, no acute distress, non-toxic appearance. [] HENT: Normocephalic, atraumatic, bilateral external ears normal, oropharynx moist, no oral exudates, nose normal. [] Right ear canal is impacted with cerumen, TM cannot be visualized, left ear canal has small amount of cerumen, TM can be visualized and does not appear erythematous. Eyes: PERRLA, EOMI, conjunctiva normal, no discharge. [] Neck: Normal range of motion, no tenderness, supple, no stridor. [] Cardiovascular:Heart rate regular rhythm, no murmur [] Lungs & Thorax: Bilateral breath sounds clear to auscultation [] Abdomen: Bowel sounds normal, soft, no tenderness, no masses, no pulsatile masses. [] Skin: Warm, dry, no erythema, no rash. [] Back: No tenderness, no CVA tenderness. [] Extremities: No tenderness, no cyanosis, no clubbing, ROM intact, no edema. [] Neurologic: Alert and oriented X 3, normal motor function, normal sensory function, no focal deficits noted. Cranial nerves II through XII intact Psychologic: Affect normal, judgement normal, mood normal. [] (DAISYBARRETT PATROL SUPERVISOR) Current Patient Data: Labs: Laboratory Tests Test 09/15/20 12:10 POC Urine HCG, Qualitative Hcg negative (Negative) (BARRETT VILLA APRN) EKG: EKG: [] (BARRETT VILLA APRN) Radiology/Procedures: Radiology/Procedures: [] (BARRETT VILLA APRN) Course & Med Decision Making: Course & Med Decision Making Pertinent Labs and Imaging studies reviewed. (See chart for details) This is a 35-year-old female patient presented to the ED today complaining of right ear pain. Symptoms are chronic, she states she has been using hydrogen peroxide with no relief. Also complaining of a headache. Has history of high blood pressure and is not on any medicines right now. Neurological exam is intact. Blood pressure is 210/107 on arrival to the ED. Clonidine ordered for patient. Ear cleaned in the ED. Discharged with amlodipine and Debrox. Encouraged to consider following up with her PCP for hypertension and ENT for cerumen impaction (BARRETT VILLA APRN) Dragon Disclaimer: Dragon Disclaimer: This electronic medical record was generated, in whole or in part, using a voice recognition dictation system. (BARRETT VILLA APRN) Departure Departure Impression: Primary Impression: Cerumen impaction Qualified Codes: H61.21 - Impacted cerumen, right ear Additional Impressions: Impacted cerumen, right ear Headache Qualified Codes: R51.9 - Headache, unspecified Disposition: 01 DC HOME SELF CARE/HOMELESS Condition: STABLE Referrals: NO PCP (PCP) follow up with your doctor in 1 week Patient Instructions: Cerumen Impaction, Hypertension Additional Instructions: You were evaluated in the emergency room and noted to have high blood pressure. Please take the prescribed medication as ordered. Please follow-up with the primary care doctor for blood pressure management. He can take Tylenol as needed for your headaches or Motrin. Consider using Debrox for earwax. Come back to the ED at any point symptoms worsen Scripts Diclofenac Sodium (DICLOFENAC SODIUM) 50 Mg Tablet. 1 TAB PO BID, #20 TAB 0 Refills Prov: BARRETT VILLA APRN 09/15/20 Amlodipine Besylate (AMLODIPINE BESYLATE) 5 Mg Tablet 5 MG PO DAILY, #30 TAB Prov: BARRETT VILLA APRN 09/15/20 Attending Signature Attending Signature I have reviewed the PA/STRUCTURES MECHANIC's note and plan of care. I was available for consultation as needed during the patient's visit in the emergency department. I agree with the clinical impression, plan, and disposition. (STEFFI MONZON DO) BARRETT VILLA APRN Sep 15, 2020 12:24 STEFFI MONZON DO Sep 15, 2020 17:10
[2020-09-15] MEDS ORDERED: AMLO-186 PO (13:28)
[2020-09-15] MEDS ORDERED: DICL50TA4 PO (13:28)
[2020-09-15 13:33] VITALS: BP 216/100
== END 2020-09-15 13:46 | disposition home or self-care (01) ==
LOC: ER 11:27
DX: H61.21 Impacted cerumen, right ear (principal); R51.9 Headache, unspecified; I10 Essential (primary) hypertension; E11.9 Type 2 diabetes mellitus without complications; Z88.5 Allergy status to narcotic agent; Z91.018 Allergy to other foods
CPT/HCPCS: 69209; 81025; 96372; 99284; J1885; J7512; 99283

== ENCOUNTER 2020-11-21 11:59 | Inpatient (IN) | payer SELFPAY ==
[~2020-11-21] VITALS: Ht 162.6 cm; Wt 91.6 kg
[~2020-11-21 11:59] MED LIST changes: +AMLO-186 PO; +DICL50TA4 PO
--- NOTE | 2020-11-21 12:21 | ED.ADGEN ---
Past Medical History Past Medical History: Diabetes-Type II, Hypertension Additional Past Medical Histor: L breast rib and stomach tumor/cyst removal Past Surgical History: Other Additional Past Surgical Histo: L breast rib and stomach tumor/cyst removal 07/2016 Smoking Status: Never Smoker Alcohol Use: None Drug Use: None General Adult EDM: Chief Complaint: DIZZY/LIGHT HEADED HPI: HPI: Patient is a 35-year-old female who arrives ambulatory to the emergency department reporting a near syncopal episodes prior to arrival. Patient raise from a seated position and felt lightheaded and fell to the floor. Patient reports she became concerned because she has high blood pressure which she only recently began treating again. Patient also states that she is diabetic however she does not take medication for her diabetes. Finally the patient states that she is 7 weeks . Patient states this is never happened to her before and she is very concerned. She denies any history of chest pain. She further denies illness or focal neurological change. Additionally she denies any history of vaginal bleeding or abdominal pain. She is awake, alert and nontoxic-appearing. Review of Systems: Review of Systems: Constitutional: Denies fever or chills. [] Eyes: Denies change in visual acuity. [] HENT: Denies nasal congestion or sore throat. [] Respiratory: Denies cough or shortness of breath. [] Cardiovascular: Reports lightheadedness. Denies chest pain or edema. [] GI: Denies abdominal pain, nausea, vomiting, bloody stools or diarrhea. [] : Reports . Denies dysuria. [] Musculoskeletal: Denies back pain or joint pain. [] Integument: Denies rash. [] Neurologic: Denies headache, focal weakness or sensory changes. [] Endocrine: Denies polyuria or polydipsia. [] Lymphatic: Denies swollen glands. [] Psychiatric: Denies depression or anxiety. [] Current Medications: Current Medications Medications (Trade) Dose Ordered Sig/Sylvia Start Time Stop Time Status Last Admin Dose Admin Ceftriaxone Sodium (Rocephin) 1 gm 1X ONCE 11/21/20 13:00 11/21/20 13:01 DC 11/21/20 13:15 1 GM Allergies: Allergies: Allergies Coded Allergies Type Severity Reaction Last Updated Verified broccoli Allergy Intermediate 07/10/16 Yes hydrocodone Allergy Intermediate Itching 07/07/16 No Physical Exam: PE: Constitutional: Well developed, well nourished, no acute distress, non-toxic appearance. [] HENT: Normocephalic, atraumatic, bilateral external ears normal, oropharynx moist, no oral exudates, nose normal. [] Eyes: PERRLA, EOMI, conjunctiva normal, no discharge. [] Neck: Normal range of motion, no tenderness, supple, no stridor. [] Cardiovascular:Heart rate regular rhythm, no murmur [] Lungs & Thorax: Bilateral breath sounds clear to auscultation [] Abdomen: Bowel sounds normal, soft, no tenderness, no masses, no pulsatile masses. [] Skin: Warm, dry, no erythema, no rash. [] Back: No tenderness, no CVA tenderness. [] Extremities: No tenderness, no cyanosis, no clubbing, ROM intact, no edema. [] Neurologic: Alert and oriented X 3, normal motor function, normal sensory function, no focal deficits noted. [] Psychologic: Affect normal, judgement normal, mood normal. [] Current Patient Data: Labs: Laboratory Tests Test 11/21/20 12:08 11/21/20 12:12 11/21/20 12:44 Urine Collection Type Unknown Urine Color Yellow Urine Clarity Cloudy Urine pH 5.5 (<5.0-8.0) Urine Specific [place] >=1.030 (1.000-1.030) Urine Protein >=300 mg/dL (NEG-TRACE) Urine Glucose (UA) >=1000 mg/dL (NEG) Urine Ketones (Stick) Trace mg/dL (NEG) Urine Blood Large (NEG) Urine Nitrite Negative (NEG) Urine Bilirubin Negative (NEG) Urine Urobilinogen Dipstick 1.0 mg/dL (0.2 mg/dL) Urine Leukocyte Esterase Negative (NEG) Urine RBC 6-10 /HPF (0-2) Urine WBC 5-10 /HPF (0-4) Urine Squamous Epithelial Cells Many /LPF Urine Bacteria Moderate /HPF (0-FEW) Urine Hyaline Casts Many /HPF Urine Mucus Mod /LPF POC Urine HCG, Qualitative Hcg positive (Negative) Glucose (Fingerstick) 266 mg/dL (70-99) H White Blood Count 6.6 x10^3/uL (4.0-11.0) Red Blood Count 4.15 x10^6/uL (3.50-5.40) Hemoglobin 11.3 g/dL (12.0-15.5) L Hematocrit 33.9 % (36.0-47.0) L Mean Corpuscular Volume 82 fL (79-100) Mean Corpuscular Hemoglobin 27 pg (25-35) Mean Corpuscular Hemoglobin Concent 33 g/dL (31-37) Red Cell Distribution Width 12.8 % (11.5-14.5) Platelet Count 276 x10^3/uL (140-400) Neutrophils (%) (Auto) 61 % (31-73) Lymphocytes (%) (Auto) 28 % (24-48) Monocytes (%) (Auto) 9 % (0-9) Eosinophils (%) (Auto) 2 % (0-3) Basophils (%) (Auto) 1 % (0-3) Neutrophils # (Auto) 4.1 x10^3/uL (1.8-7.7) Lymphocytes # (Auto) 1.8 x10^3/uL (1.0-4.8) Monocytes # (Auto) 0.6 x10^3/uL (0.0-1.1) Eosinophils # (Auto) 0.1 x10^3/uL (0.0-0.7) Basophils # (Auto) 0.0 x10^3/uL (0.0-0.2) Sodium Level 137 mmol/L (136-145) Potassium Level 3.8 mmol/L (3.5-5.1) Chloride Level 103 mmol/L (98-107) Carbon Dioxide Level 25 mmol/L (21-32) Anion Gap 9 (6-14) Blood Urea Nitrogen 15 mg/dL (7-20) Creatinine 1.1 mg/dL (0.6-1.0) H Estimated GFR (Cockcroft-Gault) 68.4 BUN/Creatinine Ratio 14 (6-20) Glucose Level 300 mg/dL (70-99) H Calcium Level 8.9 mg/dL (8.5-10.1) Total Bilirubin 0.2 mg/dL (0.2-1.0) Aspartate Amino Transferase (AST) 12 U/L (15-37) L Alanine Aminotransferase (ALT) 14 U/L (14-59) Alkaline Phosphatase 58 U/L (46-116) Troponin I Quantitative < 0.017 ng/mL (0.000-0.055) Total Protein 6.9 g/dL (6.4-8.2) Albumin 2.3 g/dL (3.4-5.0) L Albumin/Globulin Ratio 0.5 (1.0-1.7) L Laboratory Tests 11/21/20 12:44 Laboratory Tests 11/21/20 12:44 Vital Signs: Vital Signs Date Time Temp Pulse Resp B/P (MAP) Pulse Ox O2 Delivery O2 Flow Rate FiO2 11/21/20 12:03 98.8 95 17 199/92 (127) 100 Room Air 98.8 EKG: EKG: [] EKG was obtained at 12:14 PM and revealed a normal sinus rhythm with a ventricular rate of 96 bpm. There are no acute ST/T wave changes to denote ischemia. Heart Score: C/O Chest Pain: No Risk Factors: Risk Factors: DM, Current or recent (<one month) smoker, HTN, HLP, family history of CAD, obesity. Risk Scores: Score 0 - 3: 2.5% MACE over next 6 weeks - Discharge Home Score 4 - 6: 20.3% MACE over next 6 weeks - Admit for Clinical Observation Score 7 - 10: 72.7% MACE over next 6 weeks - Early Invasive Strategies Radiology/Procedures: Radiology/Procedures: [] Impression: [facility] [address] [facility] [place] [address] IMAGING REPORT Signed PATIENT: MARY JUAREZ ACCOUNT: [id number] : 1985 LOCATION: ER AGE: 35 SEX: F EXAM STATUS: PRE ER ORD. PHYSICIAN: SAM METCALF DO REASON: SYNCOPE PROCEDURE: PORTABLE CHEST 1V EXAM: Chest, single view. HISTORY: Syncope. COMPARISON: None. FINDINGS: A frontal view of the chest is obtained. There is no infiltrate, pleural effusion or pneumothorax. The heart is normal in size. IMPRESSION: No acute pulmonary finding. Electronically signed by: Maureen Bear MD (11/21/2020 12:31 PM) [id number] DICTATED and SIGNED BY: MAUREEN BEAR MD DATE: 11/21/20 [id number] Course & Med Decision Making: Course & Med Decision Making Pertinent Labs and Imaging studies reviewed. (See chart for details) [] Dragon Disclaimer: Dragon Disclaimer: This electronic medical record was generated, in whole or in part, using a voice recognition dictation system. Departure Departure Impression: Primary Impression: Syncope and collapse Additional Impressions: UTI in Hyperglycemia due to type 2 diabetes mellitus Poorly-controlled hypertension Disposition: 09 ADMITTED INPATIENT Admitting Physician: JAME Condition: IMPROVED Referrals: NO PCP (PCP) Problem Qualifiers SAM METCALF DO Nov 21, 2020 12:21
[2020-11-21 12:22] LABS: BILIRUBIN,URINE NEGATIVE (NEG); CLARITY,URINE CLOUDY; COLOR,URINE YELLOW; NITRITE,URINE NEGATIVE (NEG); PH,URINE 5.5 (<5.0-8.0); PROTEIN,URINE >=300 mg/dL (NEG-TRACE)
[2020-11-21 12:31] LABS: HYALINE CASTS, URINE MANY /HPF
[2020-11-21 12:32] LABS: BACTERIA,URINE MODERATE /HPF (0-FEW)
--- NOTE | 2020-11-21 12:33 | RAD ---
EXAM: Chest, single view. HISTORY: Syncope. COMPARISON: None. FINDINGS: A frontal view of the chest is obtained. There is no infiltrate, pleural effusion or pneumo thorax. The heart is normal in size. IMPRESSION: No acute pulmonary finding. Electronically signed by: Maureen Bear MD (11/21/2020 12:31 PM) [id number]
[2020-11-21 12:57] LABS: BASO % 1 % (0-3); EOS # 0.1 x10^3/uL (0.0-0.7); EOS % 2 % (0-3); HEMATOCRIT 33.9 % (36.0-47.0); HEMOGLOBIN 11.3 g/dL (12.0-15.5); LYMPH # 1.8 x10^3/uL (1.0-4.8); LYMPH % 28 % (24-48); MEAN CORPUSCULAR HEMOGLOBIN 27 pg (25-35); MEAN CORPUSCULAR HGB CONC 33 g/dL (31-37); MEAN CORPUSCULAR VOLUME 82 fL (79-100); MONO # 0.6 x10^3/uL (0.0-1.1); MONO % 9 % (0-9); NEUT # 4.1 x10^3/uL (1.8-7.7); NEUT % 61 % (31-73); PLATELET COUNT 276 x10^3/uL (140-400); RED BLOOD COUNT 4.15 x10^6/uL (3.50-5.40); RED CELL DISTRIBUTION WIDTH 12.8 % (11.5-14.5); WHITE BLOOD COUNT 6.6 x10^3/uL (4.0-11.0)
[2020-11-21] MEDS ORDERED: cefTRIAXone IV Push 1 GM VIAL. IVP ONE (13:00)
[2020-11-21 13:07] LABS: CALCIUM 8.9 mg/dL (8.5-10.1); CREATININE 1.1 mg/dL (0.6-1.0); GFR 68.4; POTASSIUM 3.8 mmol/L (3.5-5.1)
--- NOTE | 2020-11-21 13:07 | EKG ---
[facility] [address] [place] [address] Test Date: 2020-11-21 Test Time: 12:14:57 Pat Name: MARY JUAREZ Department: Room: Gender: F Hand Shaker: : 1985 Requested By: SAM METCALF Order Number: [id number] Reading MD: Sachin Mcdowell MD Measurements Intervals [place] Rate: 96 P: 45 [place]: 152 QRS: 3 QRSD: 84 T: 26 QT: 352 QTc: 446 Interpretive Statements SINUS RHYTHM Electronically Signed On 11-22-2020 15:35:12 CDT by Sachin Mcdowell MD
[2020-11-21 13:14] LABS: ALBUMIN 2.3 g/dL (3.4-5.0); ALBUMIN/GLOBULIN RATIO 0.5 (1.0-1.7); TOTAL BILIRUBIN 0.2 mg/dL (0.2-1.0); TOTAL PROTEIN 6.9 g/dL (6.4-8.2)
[2020-11-21] MEDS ORDERED: ONDANSETRON PF 4 MG/2 ML VIAL. IV PRN (13:45)
[2020-11-21] MEDS ORDERED: hydrALAZINE 20 MG/ML VIAL. IVP ONE (13:45)
--- NOTE | 2020-11-21 13:46 | PDOC1 ---
History and Physical Date of Admission Date of Admission DATE: 11/21/20 TIME: 13:46 Identification/Chief Complaint Chief Complaint SYNCOPE AT WORK, HIGH BP, EARLY History of Present Illness History of Present Illness SEEN in ER with dizziness, high bp, syncope at work today states was told that she has had HTN with her last . She has never been dxed with or txed for HTN. last she was dxed with HTN very early in gestation 35-year-old AA female who arrives ambulatory to the emergency department reporting a near syncopal episodes prior to arrival. Patient raise from a seated position and felt lightheaded and fell to the floor. 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 patient states that she is 7 weeks . 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 Smoking Status: Never Smoker Alcohol Use: None Drug Use: None fhx htn Cardiovascular: No pertinent hx, HTN Pulmonary: No pertinent hx GI: No pertinent hx Heme/Onc: No pertinent hx Psych: No pertinent hx Rheumatologic: No pertinent hx Infectious disease: No pertinent hx Renal/: No pertinent hx Endocrine: Diabetes Dermatology: No pertinent hx, Other ([facility]) Past Surgical History Past Surgical History: No pertinent history Family History Family History: No Significant, Hypertension Social History Smoke: No ALCOHOL: none Drugs: None Current Problem List Problem List Problems Medical Problems: (1) Hyperglycemia due to type 2 diabetes mellitus Status: Acute (2) Poorly-controlled hypertension Status: Acute (3) Syncope and collapse Status: Acute (4) UTI in Status: Acute Current Medications Current Medications Current Medications Ceftriaxone Sodium (Rocephin) 1 gm 1X ONCE IVP Last administered on 11/21/20at 13:15; Start 11/21/20 at 13:00; Stop 11/21/20 at 13:01; Status DC Ondansetron HCl (Zofran) 4 mg PRN Q8HRS PRN IV NAUSEA/VOMITING; Start 11/21/20 at 13:45; Stop 11/22/20 at 13:44 Hydralazine HCl (Apresoline Inj) 10 mg 1X ONCE IVP Last administered on 11/21/20at 13:42; Start 11/21/20 at 13:45; Stop 11/21/20 at 13:46 Active Scripts Active Diclofenac Sodium 50 Mg Tablet.dr 1 Tab PO BID Amlodipine Besylate 5 Mg Tablet 5 Mg PO DAILY Labetalol Hcl 100 Mg Tablet 1 Tab PO DAILY Flagyl (Metronidazole) 500 Mg Tablet 1 Tab PO BID Ondansetron Odt (Ondansetron) 4 Mg Tab.rapdis 1 Tab PO PRN Q6-8HRS Nemo 5-325 Tablet (Acetaminophen/Hydrocodone Bitart) 1 Each Tablet 1 Tab PO Q6- 8HRS PRN Keflex (Cephalexin) 500 Mg Capsule 1 Cap PO Q8HRS Tessalon Perle (Benzonatate) 100 Mg Capsule 1 Cap PO TID Medrol (Methylprednisolone) 4 Mg Tab.ds.pk 1 Pkg PO UD Metformin Hcl 500 Mg Tablet 500 Mg PO BIDWMEALS 15 Days Naproxen 500 Mg Tablet 1 Tab PO BID 10 Days Naproxen 500 Mg Tablet 1 Tab PO BID PRN Metformin Hcl 500 Mg Tablet 500 Mg PO BIDWMEALS Flagyl (Metronidazole) 500 Mg Tablet 1 Tab PO BID Colace (Docusate Sodium) 100 Mg Capsule 1 Cap PO BID Anusol-Hc (Hydrocortisone Acetate) 25 Mg Supp.rect 1 Supp RC BID Lidocaine-Prilocaine Cream (Lidocaine/Prilocaine) 30 Gm Cream..g. 1 Jose Guadalupe TP UD PRN Naproxen 500 Mg Tablet.dr 1 Tab PO BID Metformin Hcl 1,000 Mg Tablet 1,000 Mg PO BIDWMEALS Ocuflox (Ofloxacin) 5 Ml Drops 1-2 Drop EACHEYE Q4HRS 7 Days Use every 4 hours for 2 days, then every 6 hours for the next 5 days. Amoxicillin 875 Mg Tablet 1 Tab PO BID Oxycodone-Acetaminophen 5-325 (Oxycodone Hcl/Acetaminophen) 1 Each Tablet 1 Tab PO PRN Q4HRS PRN Glyburide 5 Mg Tablet 5 Mg PO BIDWMEALS Mapap (Acetaminophen) 500 Mg Tablet 500 Mg PO PRN Q6HRS PRN Metformin Hcl 500 Mg Tablet 1 Tab PO BID Allergies Allergies: Coded Allergies: broccoli (Verified Allergy, Intermediate, 07/10/16) hydrocodone (Unverified Allergy, Intermediate, Itching, 07/07/16) NAUSEA ROS General: No: Chills, Night Sweats, Fatigue, Malaise, Appetite, Other PSYCHOLOGICAL ROS: No: Anxiety, Behavioral Disorder, Concentration difficultie, Decreased libido, Depression, Disorientation, Hallucinations, Hostility, Irritablity, Memory difficulties, Mood Swings, Obsessive thoughts, Physical abuse, Sexual abuse, Sleep disturbances, Suicidal ideation, Other Eyes: No Blurry vision, No Decreased vision, No Double vision, No Dry eyes, No Excessive tearing, No Eye Pain, No Itchy Eyes, No Loss of vision, No Photophobia, No Scotomata, No Uses contacts, No Uses glasses, No Other HEENT: No: Heacaches, Visual Changes, Hearing change, Nasal congestion, Nasal discharge, Oral lesions, Sinus pain, Sore Throat, Epistaxis, Sneezing, Snoring, Tinnitus, Vertigo, Vocal changes, Other ALLERGY AND IMMUNOLOGY: No: Hives, Insect Bite Sensitivity, Itchy/Watery Eyes, Nasal Congestion, Post Nasal Drip, Seasonal Allergies, Other Hematological and Lymphatic: No: Bleeding Problems, Blood Clots, Blood Transfusions, Brusing, Night Sweats, Pallor, Swollen Lymph Nodes, Other ENDOCRINE: No: Breast Changes, Galactorrhea, Hair Pattern Changes, Hot Flashes, Malaise/lethargy, Mood Swings, Palpitations, Polydipsia/polyuria, Skin Changes, Temperature Intolerance, Unexpected Weight Changes, Other Breast: No New/Changing Breast Lumps, No Nipple changes, No Nipple discharge, No Other Respiratory: No: Cough, Hemoptysis, Orthopnea, Pleuritic Pain, Shortness of breath, SOB with excertion, Sputum Changes, Stridor, Tachypnea, Wheezing, Other Cardiovascular: No Chest Pain, No Palpitations, No Orthopnea, No Paroxysmal Noc. Dyspnea, No Edema, No Lt Headedness, No Other Gastrointestinal: No Nausea, No Vomiting, No Abdominal Pain, No Diarrhea, No Constipation, No Melena, No Hematochezia, No Other Genitourinary: No Dysuria, No Frequency, No Incontinence, No Hematuria, No Retention, No Discharge, No Urgency, No Pain, No Flank Pain, No Other, No , No , No , No , No , No , No Musculoskeletal: Yes Gait Disturbance; No Joint Pain, No Joint Stiffness, No Joint Swelling, No Muscle Pain, No Muscular Weakness, No Pain In:, No Swelling In:, No Other Neurological: Yes Dizziness; No Behavorial Changes, No Bowel/Bladder ControlChng, No Confusion, No Gait Disturbance, No Headaches, No Impaired Coord/balance, No Memory Loss, No Numbness/Tingling, No Seizures, No Speech Problems, No Tremors, No Visual Changes, No Weakness, No Other Skin: No Dry Skin, No Eczema, No Hair Changes, No Lumps, No Mole Changes, No Mottling, No Nail Changes, No Pruritus, No Rash, No Skin Lesion Changes, No Other, No Acne Physical Exam General: Alert, Oriented X3, Cooperative, No acute distress HEENT: Atraumatic, PERRLA, EOMI, Mucous membr. moist/pink Lungs: Clear to auscultation, Normal air movement Heart: S1S2, RRR, no thrills Breasts: Not examined Abdomen: Normal bowel sounds, Soft, No tenderness, No hepatosplenomegaly Rectal Exam: not examined PELVIC: Examination not indicated Extremities: No clubbing, No cyanosis Skin: No rashes Neuro: Normal speech, Strength at 5/5 X4 ext, Sensation intact, Cranial nerves 3-12 NL Psych/Mental Status: Mental status NL, Mood NL Vitals Vitals Vital Signs Date Time Temp Pulse Resp B/P (MAP) Pulse Ox O2 Delivery O2 Flow Rate FiO2 11/21/20 13:42 91 181/100 11/21/20 12:03 98.8 17 100 Room Air 98.8 Labs Labs Laboratory Tests Test 11/21/20 12:08 11/21/20 12:12 11/21/20 12:44 Urine Collection Type Unknown Urine Color Yellow Urine Clarity Cloudy Urine pH 5.5 (<5.0-8.0) Urine Specific [place] >=1.030 (1.000-1.030) Urine Protein >=300 mg/dL (NEG-TRACE) Urine Glucose (UA) >=1000 mg/dL (NEG) Urine Ketones (Stick) Trace mg/dL (NEG) Urine Blood Large (NEG) Urine Nitrite Negative (NEG) Urine Bilirubin Negative (NEG) Urine Urobilinogen Dipstick 1.0 mg/dL (0.2 mg/dL) Urine Leukocyte Esterase Negative (NEG) Urine RBC 6-10 /HPF (0-2) Urine WBC 5-10 /HPF (0-4) Urine Squamous Epithelial Cells Many /LPF Urine Bacteria Moderate /HPF (0-FEW) Urine Hyaline Casts Many /HPF Urine Mucus Mod /LPF Bedside Urine HCG, Qualitative Hcg positive (Negative) Glucose (Fingerstick) 266 mg/dL (70-99) White Blood Count 6.6 x10^3/uL (4.0-11.0) Red Blood Count 4.15 x10^6/uL (3.50-5.40) Hemoglobin 11.3 g/dL (12.0-15.5) Hematocrit 33.9 % (36.0-47.0) Mean Corpuscular Volume 82 fL (79-100) Mean Corpuscular Hemoglobin 27 pg (25-35) Mean Corpuscular Hemoglobin Concent 33 g/dL (31-37) Red Cell Distribution Width 12.8 % (11.5-14.5) Platelet Count 276 x10^3/uL (140-400) Neutrophils (%) (Auto) 61 % (31-73) Lymphocytes (%) (Auto) 28 % (24-48) Monocytes (%) (Auto) 9 % (0-9) Eosinophils (%) (Auto) 2 % (0-3) Basophils (%) (Auto) 1 % (0-3) Neutrophils # (Auto) 4.1 x10^3/uL (1.8-7.7) Lymphocytes # (Auto) 1.8 x10^3/uL (1.0-4.8) Monocytes # (Auto) 0.6 x10^3/uL (0.0-1.1) Eosinophils # (Auto) 0.1 x10^3/uL (0.0-0.7) Basophils # (Auto) 0.0 x10^3/uL (0.0-0.2) Sodium Level 137 mmol/L (136-145) Potassium Level 3.8 mmol/L (3.5-5.1) Chloride Level 103 mmol/L (98-107) Carbon Dioxide Level 25 mmol/L (21-32) Anion Gap 9 (6-14) Blood Urea Nitrogen 15 mg/dL (7-20) Creatinine 1.1 mg/dL (0.6-1.0) Estimated GFR (Cockcroft-Gault) 68.4 BUN/Creatinine Ratio 14 (6-20) Glucose Level 300 mg/dL (70-99) Calcium Level 8.9 mg/dL (8.5-10.1) Total Bilirubin 0.2 mg/dL (0.2-1.0) Aspartate Amino Transf (AST/SGOT) 12 U/L (15-37) Alanine Aminotransferase (ALT/SGPT) 14 U/L (14-59) Alkaline Phosphatase 58 U/L (46-116) Troponin I Quantitative < 0.017 ng/mL (0.000-0.055) Total Protein 6.9 g/dL (6.4-8.2) Albumin 2.3 g/dL (3.4-5.0) Albumin/Globulin Ratio 0.5 (1.0-1.7) Laboratory Tests Test 11/21/20 12:08 11/21/20 12:12 11/21/20 12:44 Urine Collection Type Unknown Urine Color Yellow Urine Clarity Cloudy Urine pH 5.5 (<5.0-8.0) Urine Specific [place] >=1.030 (1.000-1.030) Urine Protein >=300 mg/dL (NEG-TRACE) Urine Glucose (UA) >=1000 mg/dL (NEG) Urine Ketones (Stick) Trace mg/dL (NEG) Urine Blood Large (NEG) Urine Nitrite Negative (NEG) Urine Bilirubin Negative (NEG) Urine Urobilinogen Dipstick 1.0 mg/dL (0.2 mg/dL) Urine Leukocyte Esterase Negative (NEG) Urine RBC 6-10 /HPF (0-2) Urine WBC 5-10 /HPF (0-4) Urine Squamous Epithelial Cells Many /LPF Urine Bacteria Moderate /HPF (0-FEW) Urine Hyaline Casts Many /HPF Urine Mucus Mod /LPF Bedside Urine HCG, Qualitative Hcg positive (Negative) Glucose (Fingerstick) 266 mg/dL (70-99) White Blood Count 6.6 x10^3/uL (4.0-11.0) Red Blood Count 4.15 x10^6/uL (3.50-5.40) Hemoglobin 11.3 g/dL (12.0-15.5) Hematocrit 33.9 % (36.0-47.0) Mean Corpuscular Volume 82 fL (79-100) Mean Corpuscular Hemoglobin 27 pg (25-35) Mean Corpuscular Hemoglobin Concent 33 g/dL (31-37) Red Cell Distribution Width 12.8 % (11.5-14.5) Platelet Count 276 x10^3/uL (140-400) Neutrophils (%) (Auto) 61 % (31-73) Lymphocytes (%) (Auto) 28 % (24-48) Monocytes (%) (Auto) 9 % (0-9) Eosinophils (%) (Auto) 2 % (0-3) Basophils (%) (Auto) 1 % (0-3) Neutrophils # (Auto) 4.1 x10^3/uL (1.8-7.7) Lymphocytes # (Auto) 1.8 x10^3/uL (1.0-4.8) Monocytes # (Auto) 0.6 x10^3/uL (0.0-1.1) Eosinophils # (Auto) 0.1 x10^3/uL (0.0-0.7) Basophils # (Auto) 0.0 x10^3/uL (0.0-0.2) Sodium Level 137 mmol/L (136-145) Potassium Level 3.8 mmol/L (3.5-5.1) Chloride Level 103 mmol/L (98-107) Carbon Dioxide Level 25 mmol/L (21-32) Anion Gap 9 (6-14) Blood Urea Nitrogen 15 mg/dL (7-20) Creatinine 1.1 mg/dL (0.6-1.0) Estimated GFR (Cockcroft-Gault) 68.4 BUN/Creatinine Ratio 14 (6-20) Glucose Level 300 mg/dL (70-99) Calcium Level 8.9 mg/dL (8.5-10.1) Total Bilirubin 0.2 mg/dL (0.2-1.0) Aspartate Amino Transf (AST/SGOT) 12 U/L (15-37) Alanine Aminotransferase (ALT/SGPT) 14 U/L (14-59) Alkaline Phosphatase 58 U/L (46-116) Troponin I Quantitative < 0.017 ng/mL (0.000-0.055) Total Protein 6.9 g/dL (6.4-8.2) Albumin 2.3 g/dL (3.4-5.0) Albumin/Globulin Ratio 0.5 (1.0-1.7) Images Images EXAM: Obstetrics sonogram. HISTORY: Viability scan. TECHNIQUE: Sonographic imaging of a gravid uterus was performed. COMPARISON: None. FINDINGS: The uterus measures 8.8 x 5.9 x 5.6 cm. There is a fluid collection within the endometrial cavity likely due to an early gestational sac. The mean sac diameter is 5.6 mm, corresponding with a gestational age of 5 weeks and 2 days. There are internal echoes within the gestational sac which are difficult to assess given the small sac size. The ovaries are unremarkable. There is no pelvic free fluid. IMPRESSION: Suspected early intrauterine gestational sac in expected position with a mean sac diameter corresponding with a gestational age of 5 weeks and 2 days. No pole is seen at this early gestation. Short-term sonographic follow-up in 1-2 weeks is recommended to confirm viability and exclude an empty sac or pseudosac in the setting of ectopic gestation. There is no beta-hCG level at the time of dictation for correlation. Electronically signed by: Ayesha Bear MD (11/21/2020 4:24 PM) [id number] DICTATED and SIGNED BY: AYESHA BEAR MD DATE: 11/21/20 [id number] REASON: SYNCOPE PROCEDURE: PORTABLE CHEST 1V EXAM: Chest, single view. HISTORY: Syncope. COMPARISON: None. FINDINGS: A frontal view of the chest is obtained. There is no infiltrate, pleural effusion or pneumothorax. The heart is normal in size. IMPRESSION: No acute pulmonary finding. Electronically signed by: Ayesha Bear MD (11/21/2020 12:31 PM) [id number] DICTATED and SIGNED BY: AYESHA BEAR MD DATE: 11/21/20 [id number] VTE Prophylaxis Ordered VTE Prophylaxis Devices: No VTE Pharmacological Prophylaxi: Contraindicated Assessment/Plan Assessment/Plan Impression: Syncope and collapse morbid obesity UTI in Hyperglycemia due to type 2 diabetes mellitus Poorly-controlled hypertension Proteinuria Suspected early intrauterine gestational sac in expected position / gestational age of 5 weeks and 2 days. ADMITTED ss insulin bp control home meds, labetalol OB CONSULT A1C VITS TELE IV FLUIDS ACCUCHECKS AMBULATE FREQUENTLY D/W ER Justifications for Admission Other Justification ELIZABETH HOLLEY MD Nov 21, 2020 13:46
[2020-11-21] MEDS ORDERED: ONDANSETRON ODT 4 MG TAB.RAPDIS. PO PRN (14:00)
[2020-11-21] MEDS ORDERED: ACETAMINOPHEN 500 MG TABLET PO PRN (14:00)
[2020-11-21] MEDS ORDERED: BENZONATATE 100 MG CAPSULE. PO SCH (14:00)
[2020-11-21] MEDS ORDERED: NIFE30TA15 PO (14:44)
[2020-11-21 15:08] VITALS: BP 179/108
--- NOTE | 2020-11-21 15:15 | PDOC2 ---
CONSULT Date of Consult Date of Consult DATE: 11/21/20 TIME: 15:14 Reason for Consult Reason for Consult: HTN urgency in , poorly control DM, syncope History of Present Illness Reason for Visit: EDC: 07/09/21 LMP: 10/02/20 35y @ 7.1 by LMP who presented to the ER after a syncopal episode. 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 The pt recently she discovered she was . She presented to [facility] for a proof of . She was found to have a severe range BP and was start on Procardia 30 XL and told to return in two wks. Despite taking the med today she still presented to the ER with a severe BP (199/92). She states was told that she has had HTN with her last . She has never been dxed with or txed for HTN. Although the last she was dxed with HTN very early in gestation meaning that her HTN is chronic. The pt has also had the dx of DM since the age of 25yo. She has had varying management due to insurance issues. She was started on insulin with her last . Prior to that she had only been on Metformin. After she lost the last she did not have the ability to establish with a PCP. 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 Menarche 9yo / regular SH: no tob, no EtOH FH: HTN, DM, CA Past Medical History Cardiovascular: No pertinent hx Pulmonary: No pertinent hx GI: No pertinent hx Heme/Onc: No pertinent hx Psych: No pertinent hx Rheumatologic: No pertinent hx Infectious disease: No pertinent hx Renal/: No pertinent hx Endocrine: Diabetes Past Surgical History Past Surgical History: No pertinent history Family History Family History: No Significant Social History ALCOHOL: none Drugs: None Current Problem List Problem List Problems Medical Problems: (1) Hyperglycemia due to type 2 diabetes mellitus Status: Acute (2) Poorly-controlled hypertension Status: Acute (3) Syncope and collapse Status: Acute (4) UTI in Status: Acute Current Medications Current Medications Current Medications Ceftriaxone Sodium (Rocephin) 1 gm 1X ONCE IVP Last administered on 11/21/20at 13:15; Start 11/21/20 at 13:00; Stop 11/21/20 at 13:01; Status DC Ondansetron HCl (Zofran) 4 mg PRN Q8HRS PRN IV NAUSEA/VOMITING; Start 11/21/20 at 13:45; Stop 11/22/20 at 13:44 Hydralazine HCl (Apresoline Inj) 10 mg 1X ONCE IVP Last administered on 11/21/20at 13:42; Start 11/21/20 at 13:45; Stop 11/21/20 at 13:46; Status DC Acetaminophen (Tylenol) 500 mg PRN Q6HRS PRN PO MILD PAIN / TEMP > 100.3'F; Start 11/21/20 at 14:00 Amlodipine Besylate (Norvasc) 5 mg DAILY PO ; Start 11/22/20 at 09:00; Status UNV Benzonatate (Tessalon Perle) 100 mg TID PO ; Start 11/21/20 at 14:00; Status UNV Docusate Sodium (Colace) 100 mg BID PO ; Start 11/21/20 at 21:00 Labetalol HCl (Trandate) 100 mg BID PO ; Start 11/21/20 at 15:00 Ondansetron HCl (Zofran Odt) 4 mg PRN Q4HRS PRN PO NAUSEA/VOMITING; Start 11/21/20 at 14:00 Nifedipine (Procardia Xl) 30 mg DAILY PO ; Start 11/21/20 at 15:00 Active Scripts Active Mapap (Acetaminophen) 500 Mg Tablet 500 Mg PO PRN Q6HRS PRN Reported Nifedipine Er (Nifedipine) 30 Mg Tablet.er 30 Mg PO DAILY Allergies Allergies: Coded Allergies: broccoli (Verified Allergy, Intermediate, 07/10/16) hydrocodone (Unverified Allergy, Intermediate, Itching, 07/07/16) NAUSEA Physical Exam General: Alert, Oriented X3, Cooperative, No acute distress HEENT: PERRLA, Mucous membr. moist/pink Lungs: Clear to auscultation, Normal air movement Heart: Regular rate, Normal S1, Normal S2, No murmurs Abdomen: Normal bowel sounds, Soft, No tenderness, No hepatosplenomegaly, No masses Extremities: No clubbing, No cyanosis, No edema, Normal pulses, No tenderness/swelling Skin: No rashes, No breakdown Neuro: Normal gait, Normal speech, Normal tone, Sensation intact, Reflexes 2+ Psych/Mental Status: Mental status NL, Mood NL Vitals VITALS Vital Signs Date Time Temp Pulse Resp B/P (MAP) Pulse Ox O2 Delivery O2 Flow Rate FiO2 11/21/20 15:08 98.5 96 18 179/108 (131) 100 Room Air 98.5 Labs Labs Laboratory Tests Test 11/21/20 12:08 11/21/20 12:12 11/21/20 12:44 Urine Collection Type Unknown Urine Color Yellow Urine Clarity Cloudy Urine pH 5.5 (<5.0-8.0) Urine Specific [place] >=1.030 (1.000-1.030) Urine Protein >=300 mg/dL (NEG-TRACE) Urine Glucose (UA) >=1000 mg/dL (NEG) Urine Ketones (Stick) Trace mg/dL (NEG) Urine Blood Large (NEG) Urine Nitrite Negative (NEG) Urine Bilirubin Negative (NEG) Urine Urobilinogen Dipstick 1.0 mg/dL (0.2 mg/dL) Urine Leukocyte Esterase Negative (NEG) Urine RBC 6-10 /HPF (0-2) Urine WBC 5-10 /HPF (0-4) Urine Squamous Epithelial Cells Many /LPF Urine Bacteria Moderate /HPF (0-FEW) Urine Hyaline Casts Many /HPF Urine Mucus Mod /LPF Bedside Urine HCG, Qualitative Hcg positive (Negative) Glucose (Fingerstick) 266 mg/dL (70-99) White Blood Count 6.6 x10^3/uL (4.0-11.0) Red Blood Count 4.15 x10^6/uL (3.50-5.40) Hemoglobin 11.3 g/dL (12.0-15.5) Hematocrit 33.9 % (36.0-47.0) Mean Corpuscular Volume 82 fL (79-100) Mean Corpuscular Hemoglobin 27 pg (25-35) Mean Corpuscular Hemoglobin Concent 33 g/dL (31-37) Red Cell Distribution Width 12.8 % (11.5-14.5) Platelet Count 276 x10^3/uL (140-400) Neutrophils (%) (Auto) 61 % (31-73) Lymphocytes (%) (Auto) 28 % (24-48) Monocytes (%) (Auto) 9 % (0-9) Eosinophils (%) (Auto) 2 % (0-3) Basophils (%) (Auto) 1 % (0-3) Neutrophils # (Auto) 4.1 x10^3/uL (1.8-7.7) Lymphocytes # (Auto) 1.8 x10^3/uL (1.0-4.8) Monocytes # (Auto) 0.6 x10^3/uL (0.0-1.1) Eosinophils # (Auto) 0.1 x10^3/uL (0.0-0.7) Basophils # (Auto) 0.0 x10^3/uL (0.0-0.2) Sodium Level 137 mmol/L (136-145) Potassium Level 3.8 mmol/L (3.5-5.1) Chloride Level 103 mmol/L (98-107) Carbon Dioxide Level 25 mmol/L (21-32) Anion Gap 9 (6-14) Blood Urea Nitrogen 15 mg/dL (7-20) Creatinine 1.1 mg/dL (0.6-1.0) Estimated GFR (Cockcroft-Gault) 68.4 BUN/Creatinine Ratio 14 (6-20) Glucose Level 300 mg/dL (70-99) Calcium Level 8.9 mg/dL (8.5-10.1) Total Bilirubin 0.2 mg/dL (0.2-1.0) Aspartate Amino Transf (AST/SGOT) 12 U/L (15-37) Alanine Aminotransferase (ALT/SGPT) 14 U/L (14-59) Alkaline Phosphatase 58 U/L (46-116) Troponin I Quantitative < 0.017 ng/mL (0.000-0.055) Total Protein 6.9 g/dL (6.4-8.2) Albumin 2.3 g/dL (3.4-5.0) Albumin/Globulin Ratio 0.5 (1.0-1.7) Laboratory Tests Test 11/21/20 12:08 11/21/20 12:12 11/21/20 12:44 Urine Collection Type Unknown Urine Color Yellow Urine Clarity Cloudy Urine pH 5.5 (<5.0-8.0) Urine Specific [place] >=1.030 (1.000-1.030) Urine Protein >=300 mg/dL (NEG-TRACE) Urine Glucose (UA) >=1000 mg/dL (NEG) Urine Ketones (Stick) Trace mg/dL (NEG) Urine Blood Large (NEG) Urine Nitrite Negative (NEG) Urine Bilirubin Negative (NEG) Urine Urobilinogen Dipstick 1.0 mg/dL (0.2 mg/dL) Urine Leukocyte Esterase Negative (NEG) Urine RBC 6-10 /HPF (0-2) Urine WBC 5-10 /HPF (0-4) Urine Squamous Epithelial Cells Many /LPF Urine Bacteria Moderate /HPF (0-FEW) Urine Hyaline Casts Many /HPF Urine Mucus Mod /LPF Bedside Urine HCG, Qualitative Hcg positive (Negative) Glucose (Fingerstick) 266 mg/dL (70-99) White Blood Count 6.6 x10^3/uL (4.0-11.0) Red Blood Count 4.15 x10^6/uL (3.50-5.40) Hemoglobin 11.3 g/dL (12.0-15.5) Hematocrit 33.9 % (36.0-47.0) Mean Corpuscular Volume 82 fL (79-100) Mean Corpuscular Hemoglobin 27 pg (25-35) Mean Corpuscular Hemoglobin Concent 33 g/dL (31-37) Red Cell Distribution Width 12.8 % (11.5-14.5) Platelet Count 276 x10^3/uL (140-400) Neutrophils (%) (Auto) 61 % (31-73) Lymphocytes (%) (Auto) 28 % (24-48) Monocytes (%) (Auto) 9 % (0-9) Eosinophils (%) (Auto) 2 % (0-3) Basophils (%) (Auto) 1 % (0-3) Neutrophils # (Auto) 4.1 x10^3/uL (1.8-7.7) Lymphocytes # (Auto) 1.8 x10^3/uL (1.0-4.8) Monocytes # (Auto) 0.6 x10^3/uL (0.0-1.1) Eosinophils # (Auto) 0.1 x10^3/uL (0.0-0.7) Basophils # (Auto) 0.0 x10^3/uL (0.0-0.2) Sodium Level 137 mmol/L (136-145) Potassium Level 3.8 mmol/L (3.5-5.1) Chloride Level 103 mmol/L (98-107) Carbon Dioxide Level 25 mmol/L (21-32) Anion Gap 9 (6-14) Blood Urea Nitrogen 15 mg/dL (7-20) Creatinine 1.1 mg/dL (0.6-1.0) Estimated GFR (Cockcroft-Gault) 68.4 BUN/Creatinine Ratio 14 (6-20) Glucose Level 300 mg/dL (70-99) Calcium Level 8.9 mg/dL (8.5-10.1) Total Bilirubin 0.2 mg/dL (0.2-1.0) Aspartate Amino Transf (AST/SGOT) 12 U/L (15-37) Alanine Aminotransferase (ALT/SGPT) 14 U/L (14-59) Alkaline Phosphatase 58 U/L (46-116) Troponin I Quantitative < 0.017 ng/mL (0.000-0.055) Total Protein 6.9 g/dL (6.4-8.2) Albumin 2.3 g/dL (3.4-5.0) Albumin/Globulin Ratio 0.5 (1.0-1.7) Assessment/Plan Assessment/Plan Assessment 35y @ 7.1 by LMP admitted for a syncopal episode Recommendations: 1.) IUP u/s ordered to confirm viability 2.) cHTN poorly controlled, recently started on Procardia 30 XL, may need to be increased to 60. If BP still poorly controlled if 90 reached, would add second agent (either Labetalol or Aldomet). 3.) BDM also poorly control. Glucose 300 on CMP. Pt not a candidate for oral meds. Would start on insulin. Typical starting regime in 1st trimester would be based on a total insulin dose of 0.7 units/kg. So 64 units a day. This would be divided into 29 units of NPH and 15 units of regular in the am, 11 units of regular with dinner, and 11 units of NPH in the evening. This is likely going to be too low with her poor control, but would be a good starting point. 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
--- NOTE | 2020-11-21 16:27 | RAD ---
EXAM: Obstetrics sonogram. HISTORY: Viability scan. TECHNIQUE: Sonographic imaging of a gravid uterus was performed. COMPARISON: None. FINDINGS: The uterus measures 8.8 x 5.9 x 5.6 cm. There is a fluid collection within the endometrial cavity likely due to an early gestational sac. The mean sac diameter is 5.6 mm, corresponding with a gestational age of 5 weeks and 2 days. There are internal echoes within the gestational sac which are difficult to assess given the small sac size. The ovaries are unremarkable. There is no pelvic free fluid. IMPRESSION: Suspected early intrauterine gestational sac in expected position with a mean sac diamete r corresponding with a gestational age of 5 weeks and 2 days. No pole is seen at this early ges tation. Short-term sonographic follow-up in 1-2 weeks is recommended to confirm viability and exclude an empty sac or pseudosac in the setting of ectopic gestation. There is no beta-hCG level at the lupis e of dictation for correlation. Electronically signed by: Maureen Bear MD (11/21/2020 4:24 PM) [id number]
[2020-11-21] MEDS ORDERED: cefTRIAXone IV Push 1 GM VIAL. IVP SCH (17:00)
[2020-11-21] MEDS: INSULIN LISPRO 300 UNITS/3 ML VIAL. SQ SCH ×2 (17:00→17:04)
[2020-11-21] MEDS ORDERED: INSULIN NPH/REG HUM 70/30 300 UNITS/3 ML VIAL. SQ SCH (17:00)
[2020-11-21] MEDS: LABETALOL HCL 100 MG TABLET. PO SCH ×2 (17:00→21:47)
[2020-11-21 19:00] VITALS: BP 148/87
[2020-11-21] MEDS ORDERED: INSULIN GLARGINE SYRINGE. SQ SCH (21:00)
[2020-11-21] MEDS: DOCUSATE SODIUM 100 MG CAPSULE. PO SCH (21:00)
[2020-11-21 23:00] VITALS: BP 160/80
[2020-11-22 03:00] VITALS: BP 163/85
[2020-11-22 07:00] VITALS: BP 174/92
[2020-11-22] MEDS ORDERED: INSULIN NPH/REG HUM 70/30 300 UNITS/3 ML VIAL. SQ SCH (08:00)
[2020-11-22] MEDS: INSULIN LISPRO 300 UNITS/3 ML VIAL. SQ SCH ×3 (08:04→17:14)
[2020-11-22] MEDS ORDERED: INSULIN GLARGINE SYRINGE. SQ SCH (09:00)
[2020-11-22] MEDS: DOCUSATE SODIUM 100 MG CAPSULE. PO SCH ×3 (09:00→20:51)
[2020-11-22] MEDS ORDERED: amLODIPine BESYLATE 5 MG TABLET PO SCH (09:00)
--- NOTE | 2020-11-22 09:21 | PDOC ---
[employer] PROGRESS NOTE Date of Service: DATE: 11/22/20 TIME: 09:19 Subjective: Discussed plan with pt Objective: Vital Signs: Vital Signs Date Time Temp Pulse Resp B/P (MAP) Pulse Ox O2 Delivery O2 Flow Rate FiO2 11/21/20 12:03 98.8 95 17 199/92 (127) 100 Room Air 98.8 Vital Signs Date Time Temp Pulse Resp B/P (MAP) Pulse Ox O2 Delivery O2 Flow Rate FiO2 11/22/20 07:00 99.3 89 17 174/92 (119) 100 Room Air 99.3 Labs: Laboratory Tests Test 11/21/20 12:08 11/21/20 12:12 11/21/20 12:44 11/21/20 16:46 Urine Collection Type Unknown Urine Color Yellow Urine Clarity Cloudy Urine pH 5.5 (<5.0-8.0) Urine Specific [place] >=1.030 (1.000-1.030) Urine Protein >=300 mg/dL (NEG-TRACE) Urine Glucose (UA) >=1000 mg/dL (NEG) Urine Ketones (Stick) Trace mg/dL (NEG) Urine Blood Large (NEG) Urine Nitrite Negative (NEG) Urine Bilirubin Negative (NEG) Urine Urobilinogen Dipstick 1.0 mg/dL (0.2 mg/dL) Urine Leukocyte Esterase Negative (NEG) Urine RBC 6-10 /HPF (0-2) Urine WBC 5-10 /HPF (0-4) Urine Squamous Epithelial Cells Many /LPF Urine Bacteria Moderate /HPF (0-FEW) Urine Hyaline Casts Many /HPF Urine Mucus Mod /LPF POC Urine HCG, Qualitative Hcg positive (Negative) Glucose (Fingerstick) 266 mg/dL (70-99) H 210 mg/dL (70-99) H White Blood Count 6.6 x10^3/uL (4.0-11.0) Red Blood Count 4.15 x10^6/uL (3.50-5.40) Hemoglobin 11.3 g/dL (12.0-15.5) L Hematocrit 33.9 % (36.0-47.0) L Mean Corpuscular Volume 82 fL (79-100) Mean Corpuscular Hemoglobin 27 pg (25-35) Mean Corpuscular Hemoglobin Concent 33 g/dL (31-37) Red Cell Distribution Width 12.8 % (11.5-14.5) Platelet Count 276 x10^3/uL (140-400) Neutrophils (%) (Auto) 61 % (31-73) Lymphocytes (%) (Auto) 28 % (24-48) Monocytes (%) (Auto) 9 % (0-9) Eosinophils (%) (Auto) 2 % (0-3) Basophils (%) (Auto) 1 % (0-3) Neutrophils # (Auto) 4.1 x10^3/uL (1.8-7.7) Lymphocytes # (Auto) 1.8 x10^3/uL (1.0-4.8) Monocytes # (Auto) 0.6 x10^3/uL (0.0-1.1) Eosinophils # (Auto) 0.1 x10^3/uL (0.0-0.7) Basophils # (Auto) 0.0 x10^3/uL (0.0-0.2) Sodium Level 137 mmol/L (136-145) Potassium Level 3.8 mmol/L (3.5-5.1) Chloride Level 103 mmol/L (98-107) Carbon Dioxide Level 25 mmol/L (21-32) Anion Gap 9 (6-14) Blood Urea Nitrogen 15 mg/dL (7-20) Creatinine 1.1 mg/dL (0.6-1.0) H Estimated GFR (Cockcroft-Gault) 68.4 BUN/Creatinine Ratio 14 (6-20) Glucose Level 300 mg/dL (70-99) H Calcium Level 8.9 mg/dL (8.5-10.1) Total Bilirubin 0.2 mg/dL (0.2-1.0) Aspartate Amino Transferase (AST) 12 U/L (15-37) L Alanine Aminotransferase (ALT) 14 U/L (14-59) Alkaline Phosphatase 58 U/L (46-116) Troponin I Quantitative < 0.017 ng/mL (0.000-0.055) Total Protein 6.9 g/dL (6.4-8.2) Albumin 2.3 g/dL (3.4-5.0) L Albumin/Globulin Ratio 0.5 (1.0-1.7) L Test 11/21/20 21:15 4/24/21 07:19 Glucose (Fingerstick) 186 mg/dL (70-99) H 206 mg/dL (70-99) H Laboratory Tests 11/21/20 12:44 Laboratory Tests 11/21/20 12:44 Laboratory Tests 11/21/20 12:44 Physical Exam: GENERAL: No apparent distress. Alert and oriented. HEENT: Head normocephalic, atraumatic. NECK: Supple LUNGS: Clear to auscultation. HEART: RRR, S1, S2 present, pulses intact ABDOMEN: Soft, positive bowel sounds. EXTREMITIES: No cyanosis or edema. NEUROLOGIC: Normal speech, normal tone PSYCHIATRIC: Normal affect, normal mood. SKIN: No ulceration. Assessment & Plan: A/P 35y @ 7.2 by LMP admitted for syncopal episode 1.) IUP u/s (11/21) revealed a most likely an early gestation. Quant ordered this am, would repeat in 48hrs to ensure doubling. Due to comorbidities at high risk for losing . 2.) cHTN still with severe BP. Target BP for her would be b/t 135-160/85-110. Increased Procardia to 60 XL and stopped Labetaol. Would add Labetaolo if max out on Procardia (which is 90). 3.) BDM still with poor control. Goal in would be fasting below 90 and 2hr PP values below 120. Long-acting insulin analogs (like Glargine) can be useful for management of patients with type 1 diabetes who need stable basal coverage. A disadvantage of the longer acting insulin analogs is that their activity remains fairly constant over approximately 24 hours, and this level of activity may not be ideal to optimize both daytime and nighttime basal needs. I prefer to use the intermediate-acting NPH insulin during for women with type 2 diabetes. Currently on Lantus 29 units am HumaLOG 15 units in am, Lantus 11 units qhs and HumaLOG 11 units qhs. NPH not available through pharmacy so will use 70/30 at a 1:1 equivalent. 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
[2020-11-22] MEDS ORDERED: INSULIN NPH/REG HUM 70/30 300 UNITS/3 ML VIAL. SQ ONE (09:30)
[2020-11-22] MEDS: PRENATAL MULTIVITAMIN TABLET. PO SCH (10:37)
[2020-11-22 11:00] VITALS: BP 174/95
[2020-11-22] MEDS ORDERED: DEXTROSE 50% 25 GM / 50ML DISP.SYRIN. IV PRN (11:00)
--- NOTE | 2020-11-22 11:06 | PDOC ---
PROGRESS NOTES Date of Service: DATE: 11/22/20 TIME: 11:05 Chief Complaint Chief Complaint VTE Prophylaxis Ordered VTE Prophylaxis Devices: No VTE Pharmacological Prophylaxi: Contraindicated Assessment/Plan Assessment/Plan Impression: Syncope and collapse morbid obesity UTI in Hyperglycemia due to type 2 diabetes mellitus Poorly-controlled hypertension, persistent Proteinuria Suspected early intrauterine gestational sac in expected position / ges tational age of 5 weeks and 2 days. Recurrent loss likely secondary to her comorbidities ADMITTED ss insulin, continued adjustment needed bp control home meds, labetalol OB CONSULT A1C VITS TELE IV FLUIDS ACCUCHECKS AMBULATE FREQUENTLY for dvt prevention D/W ER History of Present Illness History of Present Illness dentification/Chief Complaint Chief Complaint SYNCOPE AT WORK, HIGH BP, EARLY History of Present Illness History of Present Illness SEEN in ER with dizziness, high bp, syncope at work today states was told that she has had HTN with her last . She has never been dxed with or txed for HTN. last she was dxed with HTN very early in gestation 35-year-old AA female who arrives ambulatory to the emergency department reporting a near syncopal episodes prior to arrival. Patient raise from a seated position and felt lightheaded and fell to the floor. 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 patient states that she is 7 weeks . 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 Smoking Status: Never Smoker Alcohol Use: None Drug Use: None fhx htn Cardiovascular: No pertinent hx, HTN Pulmonary: No pertinent hx GI: No pertinent hx Heme/Onc: No pertinent hx Psych: No pertinent hx Rheumatologic: No pertinent hx Infectious disease: No pertinent hx Renal/: No pertinent hx Endocrine: Diabetes Dermatology: No pertinent hx, Other (HIRSUTE) Past Surgical History Past Surgical History: No pertinent history Family History Family History: No Significant, Hypertension Social History Smoke: No ALCOHOL: none Drugs: None Current Problem List Problem List Problems Medical Problems: (1) Hyperglycemia due to type 2 diabetes mellitus Status: Acute (2) Poorly-controlled hypertension Status: Acute (3) Syncope and collapse Status: Acute (4) UTI in Status: Acute Current Medications Current Medications Current Medications Ceftriaxone Sodium (Rocephin) 1 gm 1X ONCE IVP Last administered on 11/21/20at 13:15; Start 11/21/20 at 13:00; Stop 11/21/20 at 13:01; Status DC Ondansetron HCl (Zofran) 4 mg PRN Q8HRS PRN IV NAUSEA/VOMITING; Start 11/21/20 at 13:45; Stop 11/22/20 at 13:44 Hydralazine HCl (Apresoline Inj) 10 mg 1X ONCE IVP Last administered on 11/21/20at 13:42; Start 11/21/20 at 13:45; Stop 11/21/20 at 13:46 Active Scripts Active Diclofenac Sodium 50 Mg Tablet.dr 1 Tab PO BID Amlodipine Besylate 5 Mg Tablet 5 Mg PO DAILY Labetalol Hcl 100 Mg Tablet 1 Tab PO DAILY Flagyl (Metronidazole) 500 Mg Tablet 1 Tab PO BID Ondansetron Odt (Ondansetron) 4 Mg Tab.rapdis 1 Tab PO PRN Q6-8HRS Esmond 5-325 Tablet (Acetaminophen/Hydrocodone Bitart) 1 Each Tablet 1 Tab PO Q6- 8HRS PRN Keflex (Cephalexin) 500 Mg Capsule 1 Cap PO Q8HRS Tessalon Perle (Benzonatate) 100 Mg Capsule 1 Cap PO TID Medrol (Methylprednisolone) 4 Mg Tab.ds.pk 1 Pkg PO UD Metformin Hcl 500 Mg Tablet 500 Mg PO BIDWMEALS 15 Days Naproxen 500 Mg Tablet 1 Tab PO BID 10 Days Naproxen 500 Mg Tablet 1 Tab PO BID PRN Metformin Hcl 500 Mg Tablet 500 Mg PO BIDWMEALS Flagyl (Metronidazole) 500 Mg Tablet 1 Tab PO BID Colace (Docusate Sodium) 100 Mg Capsule 1 Cap PO BID Anusol-Hc (Hydrocortisone Acetate) 25 Mg Supp.rect 1 Supp RC BID Lidocaine-Prilocaine Cream (Lidocaine/Prilocaine) 30 Gm Cream..g. 1 Jose Guadalupe TP UD PRN Naproxen 500 Mg Tablet.dr 1 Tab PO BID Metformin Hcl 1,000 Mg Tablet 1,000 Mg PO BIDWMEALS Ocuflox (Ofloxacin) 5 Ml Drops 1-2 Drop EACHEYE Q4HRS 7 Days Use every 4 hours for 2 days, then every 6 hours for the next 5 days. Amoxicillin 875 Mg Tablet 1 Tab PO BID Oxycodone-Acetaminophen 5-325 (Oxycodone Hcl/Acetaminophen) 1 Each Tablet 1 Tab PO PRN Q4HRS PRN Glyburide 5 Mg Tablet 5 Mg PO BIDWMEALS Mapap (Acetaminophen) 500 Mg Tablet 500 Mg PO PRN Q6HRS PRN Metformin Hcl 500 Mg Tablet 1 Tab PO BID Allergies Allergies: Coded Allergies: broccoli (Verified Allergy, Intermediate, 07/10/16) hydrocodone (Unverified Allergy, Intermediate, Itching, 07/07/16) NAUSEA ROS General: No: Chills, Night Sweats, Fatigue, Malaise, Appetite, Other PSYCHOLOGICAL ROS: No: Anxiety, Behavioral Disorder, Concentration difficultie, Decreased libido, Depression, Disorientation, Hallucinations, Hostility, Irritablity, Memory difficulties, Mood Swings, Obsessive thoughts, Physical abuse, Sexual abuse, Sleep disturbances, Suicidal ideation, Other Eyes: No Blurry vision, No Decreased vision, No Double vision, No Dry eyes, No Excessive tearing, No Eye Pain, No Itchy Eyes, No Loss of vision, No Photophobia, No Scotomata, No Uses contacts, No Uses glasses, No Other HEENT: No: Heacaches, Visual Changes, Hearing change, Nasal congestion, Nasal discharge, Oral lesions, Sinus pain, Sore Throat, Epistaxis, Sneezing, Snoring, Tinnitus, Vertigo, Vocal changes, Other ALLERGY AND IMMUNOLOGY: No: Hives, Insect Bite Sensitivity, Itchy/Watery Eyes, Nasal Congestion, Post Nasal Drip, Seasonal Allergies, Other Hematological and Lymphatic: No: Bleeding Problems, Blood Clots, Blood Transfusions, Brusing, Night Sweats, Pallor, Swollen Lymph Nodes, Other ENDOCRINE: No: Breast Changes, Galactorrhea, Hair Pattern Changes, Hot Flashes, Malaise/lethargy, Mood Swings, Palpitations, Polydipsia/polyuria, Skin Changes, Temperature Intolerance, Unexpected Weight Changes, Other Breast: No New/Changing Breast Lumps, No Nipple changes, No Nipple discharge, No Other Respiratory: No: Cough, Hemoptysis, Orthopnea, Pleuritic Pain, Shortness of breath, SOB with excertion, Sputum Changes, Stridor, Tachypnea, Wheezing, Other Cardiovascular: No Chest Pain, No Palpitations, No Orthopnea, No Paroxysmal Noc. Dyspnea, No Edema, No Lt Headedness, No Other Gastrointestinal: No Nausea, No Vomiting, No Abdominal Pain, No Diarrhea, No Constipation, No Melena, No Hematochezia, No Other Genitourinary: No Dysuria, No Frequency, No Incontinence, No Hematuria, No Retention, No Discharge, No Urgency, No Pain, No Flank Pain, No Other, No , No , No , No , No , No , No Musculoskeletal: Yes Gait Disturbance; No Joint Pain, No Joint Stiffness, No Joint Swelling, No Muscle Pain, No Muscular Weakness, No Pain In:, No Swelling In:, No Other Neurological: Yes Dizziness; No Behavorial Changes, No Bowel/Bladder ControlChng, No Confusion, No Gait Disturbance, No Headaches, No Impaired Coord/balance, No Memory Loss, No Numbness/Tingling, No Seizures, No Speech Problems, No Tremors, No Visual Changes, No Weakness, No Other Skin: No Dry Skin, No Eczema, No Hair Changes, No Lumps, No Mole Changes, No Mottling, No Nail Changes, No Pruritus, No Rash, No Skin Lesion Changes, No Other, No Acne Physical Exam General: Alert, Oriented X3, Cooperative, No acute distress HEENT: Atraumatic, PERRLA, EOMI, Mucous membr. moist/pink Lungs: Clear to auscultation, Normal air movement Heart: S1S2, RRR, no thrills Breasts: Not examined Abdomen: Normal bowel sounds, Soft, No tenderness, No hepatosplenomegaly Rectal Exam: not examined PELVIC: Examination not indicated Extremities: No clubbing, No cyanosis Skin: No rashes Neuro: Normal speech, Strength at 5/5 X4 ext, Sensation intact, Cranial nerves 3-12 NL Psych/Mental Status: Mental status NL, Mood NL 4-24 ss insulin, continued adjustment needed, needs to syay in hospital for this bp control home meds, labetalol OB CONSULT reviewed A1C VITS TELE D/W RN NPH NOT available here Vitals Vitals Vital Signs Date Time Temp Pulse Resp B/P (MAP) Pulse Ox O2 Delivery O2 Flow Rate FiO2 11/22/20 10:38 89 174/92 11/22/20 07:00 99.3 17 100 Room Air 99.3 Physical Exam Physical Exam hirsute facial appearance General: Alert, Oriented X3, Cooperative, No acute distress Heart: Regular rate, Normal S1, Normal S2, No murmurs Lungs: Clear Abdomen: Normal bowel sounds, Soft, No tenderness, No hepatosplenomegaly Extremities: No clubbing, No cyanosis, No edema Skin: No rashes Labs LABS Procedure Result URINE CULTURE Final Final 10,000 CFU/ML Normal genitourinary meghna, not indicative of infection on 11/22/20 at 0857 Testing Performed by: [address] [address] For Inquires, the Physician may contact the Microbiology department at [phone] Unless otherwise specified, Testing Performed by: [address] [address] For Inquires, the Physician may contact the Microbiology department at [phone] Laboratory Tests Test 11/21/20 12:08 11/21/20 12:12 11/21/20 12:44 11/21/20 16:46 Urine Collection Type Unknown Urine Color Yellow Urine Clarity Cloudy Urine pH 5.5 (<5.0-8.0) Urine Specific [place] >=1.030 (1.000-1.030) Urine Protein >=300 mg/dL (NEG-TRACE) Urine Glucose (UA) >=1000 mg/dL (NEG) Urine Ketones (Stick) Trace mg/dL (NEG) Urine Blood Large (NEG) Urine Nitrite Negative (NEG) Urine Bilirubin Negative (NEG) Urine Urobilinogen Dipstick 1.0 mg/dL (0.2 mg/dL) Urine Leukocyte Esterase Negative (NEG) Urine RBC 6-10 /HPF (0-2) Urine WBC 5-10 /HPF (0-4) Urine Squamous Epithelial Cells Many /LPF Urine Bacteria Moderate /HPF (0-FEW) Urine Hyaline Casts Many /HPF Urine Mucus Mod /LPF Bedside Urine HCG, Qualitative Hcg positive (Negative) Glucose (Fingerstick) 266 mg/dL (70-99) 210 mg/dL (70-99) White Blood Count 6.6 x10^3/uL (4.0-11.0) Red Blood Count 4.15 x10^6/uL (3.50-5.40) Hemoglobin 11.3 g/dL (12.0-15.5) Hematocrit 33.9 % (36.0-47.0) Mean Corpuscular Volume 82 fL (79-100) Mean Corpuscular Hemoglobin 27 pg (25-35) Mean Corpuscular Hemoglobin Concent 33 g/dL (31-37) Red Cell Distribution Width 12.8 % (11.5-14.5) Platelet Count 276 x10^3/uL (140-400) Neutrophils (%) (Auto) 61 % (31-73) Lymphocytes (%) (Auto) 28 % (24-48) Monocytes (%) (Auto) 9 % (0-9) Eosinophils (%) (Auto) 2 % (0-3) Basophils (%) (Auto) 1 % (0-3) Neutrophils # (Auto) 4.1 x10^3/uL (1.8-7.7) Lymphocytes # (Auto) 1.8 x10^3/uL (1.0-4.8) Monocytes # (Auto) 0.6 x10^3/uL (0.0-1.1) Eosinophils # (Auto) 0.1 x10^3/uL (0.0-0.7) Basophils # (Auto) 0.0 x10^3/uL (0.0-0.2) Sodium Level 137 mmol/L (136-145) Potassium Level 3.8 mmol/L (3.5-5.1) Chloride Level 103 mmol/L (98-107) Carbon Dioxide Level 25 mmol/L (21-32) Anion Gap 9 (6-14) Blood Urea Nitrogen 15 mg/dL (7-20) Creatinine 1.1 mg/dL (0.6-1.0) Estimated GFR (Cockcroft-Gault) 68.4 BUN/Creatinine Ratio 14 (6-20) Glucose Level 300 mg/dL (70-99) Calcium Level 8.9 mg/dL (8.5-10.1) Total Bilirubin 0.2 mg/dL (0.2-1.0) Aspartate Amino Transf (AST/SGOT) 12 U/L (15-37) Alanine Aminotransferase (ALT/SGPT) 14 U/L (14-59) Alkaline Phosphatase 58 U/L (46-116) Troponin I Quantitative < 0.017 ng/mL (0.000-0.055) Total Protein 6.9 g/dL (6.4-8.2) Albumin 2.3 g/dL (3.4-5.0) Albumin/Globulin Ratio 0.5 (1.0-1.7) Test 11/21/20 21:15 11/22/20 07:19 Glucose (Fingerstick) 186 mg/dL (70-99) 206 mg/dL (70-99) Assessment and Plan Assessmemt and Plan Problems Medical Problems: (1) Hyperglycemia due to type 2 diabetes mellitus Status: Acute (2) Poorly-controlled hypertension Status: Acute (3) Syncope and collapse Status: Acute (4) UTI in Status: Acute Comment Review of Relevant I have reviewed the following items delmi (where applicable) has been applied. Labs Laboratory Tests Test 11/21/20 12:08 11/21/20 12:12 11/21/20 12:44 11/21/20 16:46 Urine Collection Type Unknown Urine Color Yellow Urine Clarity Cloudy Urine pH 5.5 (<5.0-8.0) Urine Specific [place] >=1.030 (1.000-1.030) Urine Protein >=300 mg/dL (NEG-TRACE) Urine Glucose (UA) >=1000 mg/dL (NEG) Urine Ketones (Stick) Trace mg/dL (NEG) Urine Blood Large (NEG) Urine Nitrite Negative (NEG) Urine Bilirubin Negative (NEG) Urine Urobilinogen Dipstick 1.0 mg/dL (0.2 mg/dL) Urine Leukocyte Esterase Negative (NEG) Urine RBC 6-10 /HPF (0-2) Urine WBC 5-10 /HPF (0-4) Urine Squamous Epithelial Cells Many /LPF Urine Bacteria Moderate /HPF (0-FEW) Urine Hyaline Casts Many /HPF Urine Mucus Mod /LPF Bedside Urine HCG, Qualitative Hcg positive (Negative) Glucose (Fingerstick) 266 mg/dL (70-99) 210 mg/dL (70-99) White Blood Count 6.6 x10^3/uL (4.0-11.0) Red Blood Count 4.15 x10^6/uL (3.50-5.40) Hemoglobin 11.3 g/dL (12.0-15.5) Hematocrit 33.9 % (36.0-47.0) Mean Corpuscular Volume 82 fL (79-100) Mean Corpuscular Hemoglobin 27 pg (25-35) Mean Corpuscular Hemoglobin Concent 33 g/dL (31-37) Red Cell Distribution Width 12.8 % (11.5-14.5) Platelet Count 276 x10^3/uL (140-400) Neutrophils (%) (Auto) 61 % (31-73) Lymphocytes (%) (Auto) 28 % (24-48) Monocytes (%) (Auto) 9 % (0-9) Eosinophils (%) (Auto) 2 % (0-3) Basophils (%) (Auto) 1 % (0-3) Neutrophils # (Auto) 4.1 x10^3/uL (1.8-7.7) Lymphocytes # (Auto) 1.8 x10^3/uL (1.0-4.8) Monocytes # (Auto) 0.6 x10^3/uL (0.0-1.1) Eosinophils # (Auto) 0.1 x10^3/uL (0.0-0.7) Basophils # (Auto) 0.0 x10^3/uL (0.0-0.2) Sodium Level 137 mmol/L (136-145) Potassium Level 3.8 mmol/L (3.5-5.1) Chloride Level 103 mmol/L (98-107) Carbon Dioxide Level 25 mmol/L (21-32) Anion Gap 9 (6-14) Blood Urea Nitrogen 15 mg/dL (7-20) Creatinine 1.1 mg/dL (0.6-1.0) Estimated GFR (Cockcroft-Gault) 68.4 BUN/Creatinine Ratio 14 (6-20) Glucose Level 300 mg/dL (70-99) Calcium Level 8.9 mg/dL (8.5-10.1) Total Bilirubin 0.2 mg/dL (0.2-1.0) Aspartate Amino Transf (AST/SGOT) 12 U/L (15-37) Alanine Aminotransferase (ALT/SGPT) 14 U/L (14-59) Alkaline Phosphatase 58 U/L (46-116) Troponin I Quantitative < 0.017 ng/mL (0.000-0.055) Total Protein 6.9 g/dL (6.4-8.2) Albumin 2.3 g/dL (3.4-5.0) Albumin/Globulin Ratio 0.5 (1.0-1.7) Test 11/21/20 21:15 11/22/20 07:19 Glucose (Fingerstick) 186 mg/dL (70-99) 206 mg/dL (70-99) Laboratory Tests Test 11/21/20 12:08 11/21/20 12:12 11/21/20 12:44 11/21/20 16:46 Urine Collection Type Unknown Urine Color Yellow Urine Clarity Cloudy Urine pH 5.5 (<5.0-8.0) Urine Specific [place] >=1.030 (1.000-1.030) Urine Protein >=300 mg/dL (NEG-TRACE) Urine Glucose (UA) >=1000 mg/dL (NEG) Urine Ketones (Stick) Trace mg/dL (NEG) Urine Blood Large (NEG) Urine Nitrite Negative (NEG) Urine Bilirubin Negative (NEG) Urine Urobilinogen Dipstick 1.0 mg/dL (0.2 mg/dL) Urine Leukocyte Esterase Negative (NEG) Urine RBC 6-10 /HPF (0-2) Urine WBC 5-10 /HPF (0-4) Urine Squamous Epithelial Cells Many /LPF Urine Bacteria Moderate /HPF (0-FEW) Urine Hyaline Casts Many /HPF Urine Mucus Mod /LPF Bedside Urine HCG, Qualitative Hcg positive (Negative) Glucose (Fingerstick) 266 mg/dL (70-99) 210 mg/dL (70-99) White Blood Count 6.6 x10^3/uL (4.0-11.0) Red Blood Count 4.15 x10^6/uL (3.50-5.40) Hemoglobin 11.3 g/dL (12.0-15.5) Hematocrit 33.9 % (36.0-47.0) Mean Corpuscular Volume 82 fL (79-100) Mean Corpuscular Hemoglobin 27 pg (25-35) Mean Corpuscular Hemoglobin Concent 33 g/dL (31-37) Red Cell Distribution Width 12.8 % (11.5-14.5) Platelet Count 276 x10^3/uL (140-400) Neutrophils (%) (Auto) 61 % (31-73) Lymphocytes (%) (Auto) 28 % (24-48) Monocytes (%) (Auto) 9 % (0-9) Eosinophils (%) (Auto) 2 % (0-3) Basophils (%) (Auto) 1 % (0-3) Neutrophils # (Auto) 4.1 x10^3/uL (1.8-7.7) Lymphocytes # (Auto) 1.8 x10^3/uL (1.0-4.8) Monocytes # (Auto) 0.6 x10^3/uL (0.0-1.1) Eosinophils # (Auto) 0.1 x10^3/uL (0.0-0.7) Basophils # (Auto) 0.0 x10^3/uL (0.0-0.2) Sodium Level 137 mmol/L (136-145) Potassium Level 3.8 mmol/L (3.5-5.1) Chloride Level 103 mmol/L (98-107) Carbon Dioxide Level 25 mmol/L (21-32) Anion Gap 9 (6-14) Blood Urea Nitrogen 15 mg/dL (7-20) Creatinine 1.1 mg/dL (0.6-1.0) Estimated GFR (Cockcroft-Gault) 68.4 BUN/Creatinine Ratio 14 (6-20) Glucose Level 300 mg/dL (70-99) Calcium Level 8.9 mg/dL (8.5-10.1) Total Bilirubin 0.2 mg/dL (0.2-1.0) Aspartate Amino Transf (AST/SGOT) 12 U/L (15-37) Alanine Aminotransferase (ALT/SGPT) 14 U/L (14-59) Alkaline Phosphatase 58 U/L (46-116) Troponin I Quantitative < 0.017 ng/mL (0.000-0.055) Total Protein 6.9 g/dL (6.4-8.2) Albumin 2.3 g/dL (3.4-5.0) Albumin/Globulin Ratio 0.5 (1.0-1.7) Test 11/21/20 21:15 11/22/20 07:19 Glucose (Fingerstick) 186 mg/dL (70-99) 206 mg/dL (70-99) Microbiology 11/21/20 Urine Culture - Final, Complete Medications Current Medications Ceftriaxone Sodium (Rocephin) 1 gm 1X ONCE IVP Last administered on 11/21/20at 13:15; Start 11/21/20 at 13:00; Stop 11/21/20 at 13:01; Status DC Ondansetron HCl (Zofran) 4 mg PRN Q8HRS PRN IV NAUSEA/VOMITING; Start 11/21/20 at 13:45; Stop 11/22/20 at 13:44 Hydralazine HCl (Apresoline Inj) 10 mg 1X ONCE IVP Last administered on 11/21/20at 13:42; Start 11/21/20 at 13:45; Stop 11/21/20 at 13:46; Status DC Acetaminophen (Tylenol) 500 mg PRN Q6HRS PRN PO MILD PAIN / TEMP > 100.3'F; Start 11/21/20 at 14:00 Amlodipine Besylate (Norvasc) 5 mg DAILY PO ; Start 11/22/20 at 09:00; Status UNV Benzonatate (Tessalon Perle) 100 mg TID PO ; Start 11/21/20 at 14:00; Status UNV Docusate Sodium (Colace) 100 mg BID PO ; Start 11/21/20 at 21:00 Labetalol HCl (Trandate) 100 mg BID PO Last administered on 11/21/20at 21:47; Start 11/21/20 at 15:00; Stop 11/22/20 at 08:49; Status DC Ondansetron HCl (Zofran Odt) 4 mg PRN Q4HRS PRN PO NAUSEA/VOMITING; Start 11/21/20 at 14:00 Nifedipine (Procardia Xl) 30 mg DAILY PO ; Start 11/21/20 at 15:00; Stop 11/22/20 at 08:49; Status DC Insulin Human Isoph/Insulin Regular (HumuLIN 70-30 VIAL) 29 units DAILYWBKFT SQ ; Start 11/22/20 at 08:00; Status Cancel Insulin Human Isoph/Insulin Regular (HumuLIN 70-30 VIAL) 11 units DAILYWSUP SQ ; Start 11/21/20 at 17:00; Status Cancel Insulin Human Lispro (HumaLOG) 11 units DAILYWSUP SQ Last administered on 11/21/20at 17:04; Start 11/21/20 at 16:00; Stop 11/22/20 at 09:46; Status DC Insulin Human Lispro (HumaLOG) 15 units DAILYWBKFT SQ Last administered on 11/22/20at 08:04; Start 11/22/20 at 08:00 Insulin Glargine (Lantus Syringe) 29 unit DAILY SQ ; Start 11/22/20 at 09:00; Stop 11/22/20 at 09:13; Status DC Insulin Glargine (Lantus Syringe) 11 unit QHS SQ Last administered on 11/21/20at 21:52; Start 11/21/20 at 21:00; Stop 11/22/20 at 09:13; Status DC Ceftriaxone Sodium (Rocephin) 1 gm Q24H IVP ; Start 11/21/20 at 17:00 Multivit/ Folic Acid/Iron (Multivitamin ) 1 tab DAILY PO Last administered on 11/22/20at 10:37; Start 11/22/20 at 09:00 Nifedipine (Procardia Xl) 60 mg DAILY PO Last administered on 11/22/20at 10:38; Start 11/22/20 at 09:00 Insulin Human Isoph/Insulin Regular (HumuLIN 70-30 VIAL) 29 units ONCE ONCE SQ ; Start 11/22/20 at 09:30; Stop 11/22/20 at 09:31; Status Cancel Insulin Human Isoph/Insulin Regular (HumuLIN 70-30 VIAL) 11 units QHS SQ ; Start 11/22/20 at 21:00 Insulin Human Isoph/Insulin Regular (HumuLIN 70-30 VIAL) 29 units BIDACLD SQ ; Start 11/22/20 at 11:30 Insulin Human Lispro (HumaLOG) 0-7 UNITS TIDWMEALS SQ ; Start 11/22/20 at 12:00 Dextrose (Dextrose 50%-Water Syringe) 12.5 gm PRN Q15MIN PRN IV SEE COMMENTS; Start 11/22/20 at 11:00 Active Scripts Active Mapap (Acetaminophen) 500 Mg Tablet 500 Mg PO PRN Q6HRS PRN Reported Nifedipine Er (Nifedipine) 30 Mg Tablet.er 30 Mg PO DAILY Vitals/I & O Vital Sign - Last 24 Hours 11/21/20 11/21/20 11/21/20 11/21/20 12:03 12:39 13:09 13:39 Temp 98.8 98.8 Pulse 95 92 92 92 Resp 17 B/P (MAP) 199/92 (127) 184/96 (125) 202/104 (136) 181/100 (127) Pulse Ox 100 100 100 100 O2 Delivery Room Air Room Air Room Air Room Air 11/21/20 11/21/20 11/21/20 11/21/20 13:42 13:42 13:43 13:44 Pulse 91 90 90 90 B/P (MAP) 181/100 184/100 (128) 183/101 (128) 182/105 (130) Pulse Ox 100 100 100 O2 Delivery Room Air Room Air Room Air 11/21/20 11/21/20 11/21/20 11/21/20 13:45 13:47 14:08 15:08 Temp 98.5 98.5 Pulse 90 92 92 96 Resp 17 18 B/P (MAP) 185/96 (125) 174/99 (124) 179/94 (122) 179/108 (131) Pulse Ox 100 100 100 100 O2 Delivery Room Air Room Air Room Air Room Air 11/21/20 11/21/20 11/21/20 11/21/20 16:33 17:00 19:00 19:00 Temp 99.1 99.1 99.1 99.1 Pulse 96 96 Resp 18 B/P (MAP) 179/108 148/87 (107) 148/87 (107) Pulse Ox 100 O2 Delivery Room Air 11/21/20 11/21/20 11/21/20 11/22/20 21:47 22:04 23:00 03:00 Temp 98.6 98.4 98.6 98.4 Pulse 96 99 95 Resp 16 16 B/P (MAP) 148/87 160/80 (106) 163/85 (111) Pulse Ox 99 100 O2 Delivery Room Air 11/22/20 11/22/20 07:00 10:38 Temp 99.3 99.3 Pulse 89 89 Resp 17 B/P (MAP) 174/92 (119) 174/92 Pulse Ox 100 O2 Delivery Room Air Intake and Output 11/21/20 11/21/20 11/22/20 15:00 23:00 07:00 Intake Total 320 ml Balance 320 ml Justicifation of Admission Dx: Justifications for Admission: Justification of Admission Dx: Yes Hypertension: Symp at Rest ELIZABETH HOLLEY MD Nov 22, 2020 11:06
[2020-11-22] MEDS: INSULIN NPH/REG HUM 70/30 300 UNITS/3 ML VIAL. SQ SCH ×3 (11:30→21:00)
[2020-11-22 11:59] LABS: BASO % 0 % (0-3); EOS # 0.1 x10^3/uL (0.0-0.7); EOS % 1 % (0-3); HEMATOCRIT 34.5 % (36.0-47.0); HEMOGLOBIN 11.5 g/dL (12.0-15.5); LYMPH # 1.9 x10^3/uL (1.0-4.8); LYMPH % 33 % (24-48); MEAN CORPUSCULAR HEMOGLOBIN 27 pg (25-35); MEAN CORPUSCULAR HGB CONC 33 g/dL (31-37); MEAN CORPUSCULAR VOLUME 82 fL (79-100); MONO # 0.6 x10^3/uL (0.0-1.1); MONO % 10 % (0-9); NEUT # 3.3 x10^3/uL (1.8-7.7); NEUT % 56 % (31-73); PLATELET COUNT 284 x10^3/uL (140-400); RED CELL DISTRIBUTION WIDTH 13.1 % (11.5-14.5); WHITE BLOOD COUNT 5.9 x10^3/uL (4.0-11.0)
[2020-11-22] MEDS: LACTOBACILLUS RHAMNOSUS GG 1 CAPSULE. PO SCH ×2 (12:52→20:47)
[2020-11-22 15:00] VITALS: BP 154/81
--- NOTE | 2020-11-22 15:37 | PDOC2 ---
CARDIOLOGY CONSULT NOTE DATE OF SERVICE: DATE: 11/22/20 TIME: 15:32 CHIEF COMPLAINT: Elevated blood pressure HPI: 35-year-old woman who has been found to be newly and has had some difficulty in the past with blood pressures and diabetes comes into the hospital for further evaluation and treatment. 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 She did not hurt herself. She has been seen by the OB service. Cardiology has been asked to comment on her blood pressure. She currently denies any chest pain or dyspnea. She was not expecting to be . She has not been able to care for herself due to lack of insurance. She does not currently take any medications. She reports that her blood pressure issues only happen during the peripartum timeframe. She does not have any syncope or palpitations. She has never had any prior cardiovascular work-up. PMHX: Hypertension Type 2 diabetes SOCHX: No alcohol, tobacco or illicit drug use. 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 FAMHX: No prior history of sudden cardiac in the family. CURRENT MEDS: Current Medications Medications (Trade) Dose Ordered Sig/Sylvia Route PRN Reason Start Time Stop Time Status Last Admin Dose Admin Insulin Human Lispro (HumaLOG) 11 units DAILYWSUP SQ 11/21/20 16:00 11/22/20 09:46 DC 11/21/20 17:04 Insulin Human Lispro (HumaLOG) 15 units DAILYWBKFT SQ 11/22/20 08:00 11/22/20 08:04 Insulin Glargine (Lantus Syringe) 11 unit QHS SQ 11/21/20 21:00 11/22/20 09:13 DC 11/21/20 21:52 Multivit/ Folic Acid/Iron (Multivitamin ) 1 tab DAILY PO 11/22/20 09:00 11/22/20 10:37 Nifedipine (Procardia Xl) 60 mg DAILY PO 11/22/20 09:00 11/22/20 10:38 Lactobacillus Rhamnosus (Culturelle) 1 cap BID PO 11/22/20 12:00 11/22/20 12:52 ALLERGIES: Allergies Coded Allergies Type Severity Reaction Last Updated Verified broccoli Allergy Intermediate 07/10/16 Yes hydrocodone Allergy Intermediate Itching 07/07/16 No ROS: Negative for 10 out of 14 systems reviewed unless otherwise mentioned above in HPI PHYSICAL EXAM: Vital Signs/I&O: Vital Signs Date Time Temp Pulse Resp B/P (MAP) Pulse Ox O2 Delivery O2 Flow Rate FiO2 11/22/20 11:00 98.5 89 18 174/95 (121) 100 Room Air 98.5 I & O 11/21/20 11/21/20 11/22/20 15:00 23:00 07:00 Intake Total 320 ml Balance 320 ml Physical Exam: The patient appeared well nourished and normally developed. Head exam is unremarkable. No scleral icterus or corneal arcus noted. Neck is without jugular venous distension, thyromegaly, or carotid bruits. Carotid upstrokes are brisk bilaterally. Lungs are clear to auscultation and percussion. Cardiac exam reveals the PMI to be normally sized and situated. Rhythm is regular. First and second heart sounds normal. No murmurs, rubs or gallops. Abdominal exam reveals normal bowel sounds, no masses, no organomegaly and no aortic enlargement. Extremities are nonedematous and both femoral and pedal pulses are normal. Msk: No traumua Neuro: No focal deficits DIAGNOSTIC TESTING: EKG is unremarkable Cardiac enzymes are negative Echocardiogram is pending ASSESSMENT: 1. Chronic hypertension 2. Type 2 diabetes 3. Ongoing 4. Near syncope PLAN: 1. Her presentation appears to be mostly related to untreated hypertension. We will continue the Procardia and initiate labetalol tomorrow if necessary. 2. Plan for an echocardiogram given her longstanding history of hypertension and near syncopal episode. Supportive care for now. We will follow along closely. NORMA GAR MD Nov 22, 2020 15:37
[2020-11-22 19:43] VITALS: BP 135/78
[2020-11-22] MEDS: AMOXICILLIN/K CLAV 875/125MG TABLET. PO SCH (20:47)
--- NOTE | 2020-11-22 22:45 | NUR ---
Pt FSBS 202, 11 units Anabellalin sched and pt not totally comfortable receiving that amount. Pt refused.
[2020-11-22 23:14] VITALS: BP 181/93
[2020-11-23 03:36] VITALS: BP 164/81
--- NOTE | 2020-11-23 05:52 | NUR ---
No acute distress overnight witnessed, pt is A/O x4, vital WNL, RA. Pt did have some emesis with relief after she expelled the vomit. 2200 FSBS 202. Pt verbalized not sure about receiving the scheduled 11 units of 70/30 so she refused, education provided and will follow up in AM with more education. Safety measures in place, will continue to monitor.
[2020-11-23 07:00] VITALS: BP 161/80
[2020-11-23] MEDS: INSULIN LISPRO 300 UNITS/3 ML VIAL. SQ SCH ×4 (08:39→16:34)
[2020-11-23] MEDS: AMOXICILLIN/K CLAV 875/125MG TABLET. PO SCH ×2 (08:41→20:49)
[2020-11-23] MEDS: PRENATAL MULTIVITAMIN TABLET. PO SCH (08:41)
[2020-11-23] MEDS: LACTOBACILLUS RHAMNOSUS GG 1 CAPSULE. PO SCH ×2 (08:41→20:49)
[2020-11-23] MEDS: DOCUSATE SODIUM 100 MG CAPSULE. PO SCH ×2 (08:42→21:00)
--- NOTE | 2020-11-23 10:16 | PDOC ---
PROGRESS NOTES Date of Service: DATE: 11/23/20 TIME: 10:16 Chief Complaint Chief Complaint VTE Prophylaxis Ordered VTE Prophylaxis Devices: No VTE Pharmacological Prophylaxi: Contraindicated Assessment/Plan Assessment/Plan Impression: Syncope and collapse morbid obesity UTI in Hyperglycemia due to type 2 diabetes mellitus Poorly-controlled hypertension, persistent Proteinuria Suspected early intrauterine gestational sac in expected position / ges tational age of 5 weeks and 2 days. 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 we would need to go up on her Procardia. ER 90 MG DAILY D/W RN History of Present Illness History of Present Illness dentification/Chief Complaint Chief Complaint SYNCOPE AT WORK, HIGH BP, EARLY History of Present Illness History of Present Illness SEEN in ER with dizziness, high bp, syncope at work today states was told that she has had HTN with her last . She has never been dxed with or txed for HTN. last she was dxed with HTN very early in gestation 35-year-old AA female who arrives ambulatory to the emergency department reporting a near syncopal episodes prior to arrival. Patient raise from a seated position and felt lightheaded and fell to the floor. 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 patient states that she is 7 weeks . 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 Smoking Status: Never Smoker Alcohol Use: None Drug Use: None fhx htn Cardiovascular: No pertinent hx, HTN Pulmonary: No pertinent hx GI: No pertinent hx Heme/Onc: No pertinent hx Psych: No pertinent hx Rheumatologic: No pertinent hx Infectious disease: No pertinent hx Renal/: No pertinent hx Endocrine: Diabetes Dermatology: No pertinent hx, Other (HIRSUTE) Past Surgical History Past Surgical History: No pertinent history Family History Family History: No Significant, Hypertension Social History Smoke: No ALCOHOL: none Drugs: None Current Problem List Problem List Problems Medical Problems: (1) Hyperglycemia due to type 2 diabetes mellitus Status: Acute (2) Poorly-controlled hypertension Status: Acute (3) Syncope and collapse Status: Acute (4) UTI in Status: Acute Current Medications Current Medications Current Medications Ceftriaxone Sodium (Rocephin) 1 gm 1X ONCE IVP Last administered on 11/21/20at 13:15; Start 11/21/20 at 13:00; Stop 11/21/20 at 13:01; Status DC Ondansetron HCl (Zofran) 4 mg PRN Q8HRS PRN IV NAUSEA/VOMITING; Start 11/21/20 at 13:45; Stop 11/22/20 at 13:44 Hydralazine HCl (Apresoline Inj) 10 mg 1X ONCE IVP Last administered on 11/21/20at 13:42; Start 11/21/20 at 13:45; Stop 11/21/20 at 13:46 Active Scripts Active Diclofenac Sodium 50 Mg Tablet.dr 1 Tab PO BID Amlodipine Besylate 5 Mg Tablet 5 Mg PO DAILY Labetalol Hcl 100 Mg Tablet 1 Tab PO DAILY Flagyl (Metronidazole) 500 Mg Tablet 1 Tab PO BID Ondansetron Odt (Ondansetron) 4 Mg Tab.rapdis 1 Tab PO PRN Q6-8HRS [place] 5-325 Tablet (Acetaminophen/Hydrocodone Bitart) 1 Each Tablet 1 Tab PO Q6- 8HRS PRN Keflex (Cephalexin) 500 Mg Capsule 1 Cap PO Q8HRS Tessalon Perle (Benzonatate) 100 Mg Capsule 1 Cap PO TID Medrol (Methylprednisolone) 4 Mg Tab.ds.pk 1 Pkg PO UD Metformin Hcl 500 Mg Tablet 500 Mg PO BIDWMEALS 15 Days Naproxen 500 Mg Tablet 1 Tab PO BID 10 Days Naproxen 500 Mg Tablet 1 Tab PO BID PRN Metformin Hcl 500 Mg Tablet 500 Mg PO BIDWMEALS Flagyl (Metronidazole) 500 Mg Tablet 1 Tab PO BID Colace (Docusate Sodium) 100 Mg Capsule 1 Cap PO BID Anusol-Hc (Hydrocortisone Acetate) 25 Mg Supp.rect 1 Supp RC BID Lidocaine-Prilocaine Cream (Lidocaine/Prilocaine) 30 Gm Cream..g. 1 Jose Guadalupe TP UD PRN Naproxen 500 Mg Tablet.dr 1 Tab PO BID Metformin Hcl 1,000 Mg Tablet 1,000 Mg PO BIDWMEALS Ocuflox (Ofloxacin) 5 Ml Drops 1-2 Drop EACHEYE Q4HRS 7 Days Use every 4 hours for 2 days, then every 6 hours for the next 5 days. Amoxicillin 875 Mg Tablet 1 Tab PO BID Oxycodone-Acetaminophen 5-325 (Oxycodone Hcl/Acetaminophen) 1 Each Tablet 1 Tab PO PRN Q4HRS PRN Glyburide 5 Mg Tablet 5 Mg PO BIDWMEALS Mapap (Acetaminophen) 500 Mg Tablet 500 Mg PO PRN Q6HRS PRN Metformin Hcl 500 Mg Tablet 1 Tab PO BID Allergies Allergies: Coded Allergies: broccoli (Verified Allergy, Intermediate, 07/10/16) hydrocodone (Unverified Allergy, Intermediate, Itching, 07/07/16) NAUSEA ROS General: No: Chills, Night Sweats, Fatigue, Malaise, Appetite, Other PSYCHOLOGICAL ROS: No: Anxiety, Behavioral Disorder, Concentration difficultie, Decreased libido, Depression, Disorientation, Hallucinations, Hostility, Irri tablity, Memory difficulties, Mood Swings, Obsessive thoughts, Physical abuse, Sexual abuse, Sleep disturbances, Suicidal ideation, Other Eyes: No Blurry vision, No Decreased vision, No Double vision, No Dry eyes, No Excessive tearing, No Eye Pain, No Itchy Eyes, No Loss of vision, No Photophobia, No Scotomata, No Uses contacts, No Uses glasses, No Other HEENT: No: Heacaches, Visual Changes, Hearing change, Nasal congestion, Nasal discharge, Oral lesions, Sinus pain, Sore Throat, Epistaxis, Sneezing, Snoring, Tinnitus, Vertigo, Vocal changes, Other ALLERGY AND IMMUNOLOGY: No: Hives, Insect Bite Sensitivity, Itchy/Watery Eyes, Nasal Congestion, Post Nasal Drip, Seasonal Allergies, Other Hematological and Lymphatic: No: Bleeding Problems, Blood Clots, Blood Transfusions, Brusing, Night Sweats, Pallor, Swollen Lymph Nodes, Other ENDOCRINE: No: Breast Changes, Galactorrhea, Hair Pattern Changes, Hot Flashes, Malaise/lethargy, Mood Swings, Palpitations, Polydipsia/polyuria, Skin Changes, Temperature Intolerance, Unexpected Weight Changes, Other Breast: No New/Changing Breast Lumps, No Nipple changes, No Nipple discharge, No Other Respiratory: No: Cough, Hemoptysis, Orthopnea, Pleuritic Pain, Shortness of breath, SOB with excertion, Sputum Changes, Stridor, Tachypnea, Wheezing, Other Cardiovascular: No Chest Pain, No Palpitations, No Orthopnea, No Paroxysmal Noc. Dyspnea, No Edema, No Lt Headedness, No Other Gastrointestinal: No Nausea, No Vomiting, No Abdominal Pain, No Diarrhea, No Constipation, No Melena, No Hematochezia, No Other Genitourinary: No Dysuria, No Frequency, No Incontinence, No Hematuria, No Retention, No Discharge, No Urgency, No Pain, No Flank Pain, No Other, No , No , No , No , No , No , No Musculoskeletal: Yes Gait Disturbance; No Joint Pain, No Joint Stiffness, No Joint Swelling, No Muscle Pain, No Muscular Weakness, No Pain In:, No Swelling In:, No Other Neurological: Yes Dizziness; No Behavorial Changes, No Bowel/Bladder ControlChng, No Confusion, No Gait Disturbance, No Headaches, No Impaired Coord/balance, No Memory Loss, No Numbness/Tingling, No Seizures, No Speech Problems, No Tremors, No Visual Changes, No Weakness, No Other Skin: No Dry Skin, No Eczema, No Hair Changes, No Lumps, No Mole Changes, No Mottling, No Nail Changes, No Pruritus, No Rash, No Skin Lesion Changes, No Other, No Acne Physical Exam General: Alert, Oriented X3, Cooperative, No acute distress HEENT: Atraumatic, PERRLA, EOMI, Mucous membr. moist/pink Lungs: Clear to auscultation, Normal air movement Heart: S1S2, RRR, no thrills Breasts: Not examined Abdomen: Normal bowel sounds, Soft, No tenderness, No hepatosplenomegaly Rectal Exam: not examined PELVIC: Examination not indicated Extremities: No clubbing, No cyanosis Skin: No rashes Neuro: Normal speech, Strength at 5/5 X4 ext, Sensation intact, Cranial nerves 3-12 NL Psych/Mental Status: Mental status NL, Mood NL 4-24 ss insulin, continued adjustment needed, needs to syay in hospital for this bp control home meds, labetalol OB CONSULT reviewed A1C VITS TELE D/W RN NPH NOT available here Vitals Vitals Vital Signs Date Time Temp Pulse Resp B/P (MAP) Pulse Ox O2 Delivery O2 Flow Rate FiO2 11/23/20 08:42 92 161/80 11/23/20 08:30 Room Air 11/23/20 07:00 99.5 18 97 99.5 Physical Exam Physical Exam hirsute facial appearance General: Alert, Oriented X3, Cooperative, No acute distress Heart: Regular rate, Normal S1, Normal S2, No murmurs Lungs: Clear Abdomen: Normal bowel sounds, Soft, No tenderness, No hepatosplenomegaly Extremities: No clubbing, No cyanosis, No edema Skin: No rashes Labs LABS Laboratory Tests Test 11/22/20 11:11 11/22/20 16:09 11/22/20 20:19 11/23/20 03:15 Glucose (Fingerstick) 92 mg/dL (70-99) 197 mg/dL (70-99) 202 mg/dL (70-99) 218 mg/dL (70-99) Test 11/23/20 07:01 Glucose (Fingerstick) 174 mg/dL (70-99) Assessment and Plan Assessmemt and Plan Problems Medical Problems: (1) Hyperglycemia due to type 2 diabetes mellitus Status: Acute (2) Poorly-controlled hypertension Status: Acute (3) Syncope and collapse Status: Acute (4) UTI in Status: Acute Comment Review of Relevant I have reviewed the following items delmi (where applicable) has been applied. Labs Laboratory Tests Test 11/21/20 12:08 11/21/20 12:12 11/21/20 12:44 11/21/20 16:46 Urine Collection Type Unknown Urine Color Yellow Urine Clarity Cloudy Urine pH 5.5 (<5.0-8.0) Urine Specific Malone >=1.030 (1.000-1.030) Urine Protein >=300 mg/dL (NEG-TRACE) Urine Glucose (UA) >=1000 mg/dL (NEG) Urine Ketones (Stick) Trace mg/dL (NEG) Urine Blood Large (NEG) Urine Nitrite Negative (NEG) Urine Bilirubin Negative (NEG) Urine Urobilinogen Dipstick 1.0 mg/dL (0.2 mg/dL) Urine Leukocyte Esterase Negative (NEG) Urine RBC 6-10 /HPF (0-2) Urine WBC 5-10 /HPF (0-4) Urine Squamous Epithelial Cells Many /LPF Urine Bacteria Moderate /HPF (0-FEW) Urine Hyaline Casts Many /HPF Urine Mucus Mod /LPF Bedside Urine HCG, Qualitative Hcg positive (Negative) Glucose (Fingerstick) 266 mg/dL (70-99) 210 mg/dL (70-99) White Blood Count 6.6 x10^3/uL (4.0-11.0) Red Blood Count 4.15 x10^6/uL (3.50-5.40) Hemoglobin 11.3 g/dL (12.0-15.5) Hematocrit 33.9 % (36.0-47.0) Mean Corpuscular Volume 82 fL (79-100) Mean Corpuscular Hemoglobin 27 pg (25-35) Mean Corpuscular Hemoglobin Concent 33 g/dL (31-37) Red Cell Distribution Width 12.8 % (11.5-14.5) Platelet Count 276 x10^3/uL (140-400) Neutrophils (%) (Auto) 61 % (31-73) Lymphocytes (%) (Auto) 28 % (24-48) Monocytes (%) (Auto) 9 % (0-9) Eosinophils (%) (Auto) 2 % (0-3) Basophils (%) (Auto) 1 % (0-3) Neutrophils # (Auto) 4.1 x10^3/uL (1.8-7.7) Lymphocytes # (Auto) 1.8 x10^3/uL (1.0-4.8) Monocytes # (Auto) 0.6 x10^3/uL (0.0-1.1) Eosinophils # (Auto) 0.1 x10^3/uL (0.0-0.7) Basophils # (Auto) 0.0 x10^3/uL (0.0-0.2) Sodium Level 137 mmol/L (136-145) Potassium Level 3.8 mmol/L (3.5-5.1) Chloride Level 103 mmol/L (98-107) Carbon Dioxide Level 25 mmol/L (21-32) Anion Gap 9 (6-14) Blood Urea Nitrogen 15 mg/dL (7-20) Creatinine 1.1 mg/dL (0.6-1.0) Estimated GFR (Cockcroft-Gault) 68.4 BUN/Creatinine Ratio 14 (6-20) Glucose Level 300 mg/dL (70-99) Calcium Level 8.9 mg/dL (8.5-10.1) Total Bilirubin 0.2 mg/dL (0.2-1.0) Aspartate Amino Transf (AST/SGOT) 12 U/L (15-37) Alanine Aminotransferase (ALT/SGPT) 14 U/L (14-59) Alkaline Phosphatase 58 U/L (46-116) Troponin I Quantitative < 0.017 ng/mL (0.000-0.055) Total Protein 6.9 g/dL (6.4-8.2) Albumin 2.3 g/dL (3.4-5.0) Albumin/Globulin Ratio 0.5 (1.0-1.7) Test 11/21/20 21:15 11/22/20 07:19 11/22/20 10:00 11/22/20 11:11 Glucose (Fingerstick) 186 mg/dL (70-99) 206 mg/dL (70-99) 92 mg/dL (70-99) White Blood Count 5.9 x10^3/uL (4.0-11.0) Red Blood Count 4.20 x10^6/uL (3.50-5.40) Hemoglobin 11.5 g/dL (12.0-15.5) Hematocrit 34.5 % (36.0-47.0) Mean Corpuscular Volume 82 fL (79-100) Mean Corpuscular Hemoglobin 27 pg (25-35) Mean Corpuscular Hemoglobin Concent 33 g/dL (31-37) Red Cell Distribution Width 13.1 % (11.5-14.5) Platelet Count 284 x10^3/uL (140-400) Neutrophils (%) (Auto) 56 % (31-73) Lymphocytes (%) (Auto) 33 % (24-48) Monocytes (%) (Auto) 10 % (0-9) Eosinophils (%) (Auto) 1 % (0-3) Basophils (%) (Auto) 0 % (0-3) Neutrophils # (Auto) 3.3 x10^3/uL (1.8-7.7) Lymphocytes # (Auto) 1.9 x10^3/uL (1.0-4.8) Monocytes # (Auto) 0.6 x10^3/uL (0.0-1.1) Eosinophils # (Auto) 0.1 x10^3/uL (0.0-0.7) Basophils # (Auto) 0.0 x10^3/uL (0.0-0.2) Maternal Serum HCG Beta Subunit 2975 mIU/mL (0-5) Test 11/22/20 16:09 11/22/20 20:19 11/23/20 03:15 11/23/20 07:01 Glucose (Fingerstick) 197 mg/dL (70-99) 202 mg/dL (70-99) 218 mg/dL (70-99) 174 mg/dL (70-99) Laboratory Tests Test 11/22/20 11:11 11/22/20 16:09 11/22/20 20:19 11/23/20 03:15 Glucose (Fingerstick) 92 mg/dL (70-99) 197 mg/dL (70-99) 202 mg/dL (70-99) 218 mg/dL (70-99) Test 11/23/20 07:01 Glucose (Fingerstick) 174 mg/dL (70-99) Microbiology 11/21/20 Urine Culture - Final, Complete Medications Current Medications Ceftriaxone Sodium (Rocephin) 1 gm 1X ONCE IVP Last administered on 11/21/20at 13:15; Start 11/21/20 at 13:00; Stop 11/21/20 at 13:01; Status DC Ondansetron HCl (Zofran) 4 mg PRN Q8HRS PRN IV NAUSEA/VOMITING; Start 11/21/20 at 13:45; Stop 11/22/20 at 13:44; Status DC Hydralazine HCl (Apresoline Inj) 10 mg 1X ONCE IVP Last administered on 11/21/20at 13:42; Start 11/21/20 at 13:45; Stop 11/21/20 at 13:46; Status DC Acetaminophen (Tylenol) 500 mg PRN Q6HRS PRN PO MILD PAIN / TEMP > 100.3'F; Start 11/21/20 at 14:00 Amlodipine Besylate (Norvasc) 5 mg DAILY PO ; Start 11/22/20 at 09:00; Status UNV Benzonatate (Tessalon Perle) 100 mg TID PO ; Start 11/21/20 at 14:00; Status UNV Docusate Sodium (Colace) 100 mg BID PO ; Start 11/21/20 at 21:00 Labetalol HCl (Trandate) 100 mg BID PO Last administered on 11/21/20at 21:47; Start 11/21/20 at 15:00; Stop 11/22/20 at 08:49; Status DC Ondansetron HCl (Zofran Odt) 4 mg PRN Q4HRS PRN PO NAUSEA/VOMITING; Start 10/31 10/19 at 14:00 Nifedipine (Procardia Xl) 30 mg DAILY PO ; Start 11/21/20 at 15:00; Stop 11/22/20 at 08:49; Status DC Insulin Human Isoph/Insulin Regular (HumuLIN 70-30 VIAL) 29 units DAILYWBKFT SQ ; Start 11/22/20 at 08:00; Status Cancel Insulin Human Isoph/Insulin Regular (HumuLIN 70-30 VIAL) 11 units DAILYWSUP SQ ; Start 11/21/20 at 17:00; Status Cancel Insulin Human Lispro (HumaLOG) 11 units DAILYWSUP SQ Last administered on 11/21/20at 17:04; Start 11/21/20 at 16:00; Stop 11/22/20 at 09:46; Status DC Insulin Human Lispro (HumaLOG) 15 units DAILYWBKFT SQ Last administered on 11/23/20at 08:40; Start 11/22/20 at 08:00 Insulin Glargine (Lantus Syringe) 29 unit DAILY SQ ; Start 11/22/20 at 09:00; Stop 11/22/20 at 09:13; Status DC Insulin Glargine (Lantus Syringe) 11 unit QHS SQ Last administered on 11/21/20at 21:52; Start 11/21/20 at 21:00; Stop 11/22/20 at 09:13; Status DC Ceftriaxone Sodium (Rocephin) 1 gm Q24H IVP ; Start 11/21/20 at 17:00; Stop 11/22/20 at 18:24; Status DC Multivit/ Folic Acid/Iron (Multivitamin ) 1 tab DAILY PO Last administered on 11/23/20 08:41; Start 11/22/20 at 09:00 Nifedipine (Procardia Xl) 60 mg DAILY PO Last administered on 11/23/20at 08:42; Start 11/22/20 at 09:00 Insulin Human Isoph/Insulin Regular (HumuLIN 70-30 VIAL) 29 units ONCE ONCE SQ ; Start 11/22/20 at 09:30; Stop 11/22/20 at 09:31; Status Cancel Insulin Human Isoph/Insulin Regular (HumuLIN 70-30 VIAL) 11 units QHS SQ ; Start 11/22/20 at 21:00 Insulin Human Isoph/Insulin Regular (HumuLIN 70-30 VIAL) 29 units BIDACLD SQ ; Start 11/22/20 at 11:30 Insulin Human Lispro (HumaLOG) 0-7 UNITS TIDWMEALS SQ Last administered on 10/31 12/19at 08:39; Start 11/22/20 at 12:00 Dextrose (Dextrose 50%-Water Syringe) 12.5 gm PRN Q15MIN PRN IV SEE COMMENTS; Start 11/22/20 at 11:00 Lactobacillus Rhamnosus (Culturelle) 1 cap BID PO Last administered on 11/23/20at 08:41; Start 11/22/20 at 12:00 Amoxicillin/ Clavulanate Potassium (Augmentin 875/ 125mg) 1 tab BID PO Last administered on 11/23/20at 08:41; Start 11/22/20 at 21:00 Active Scripts Active Mapap (Acetaminophen) 500 Mg Tablet 500 Mg PO PRN Q6HRS PRN Reported Nifedipine Er (Nifedipine) 30 Mg Tablet.er 30 Mg PO DAILY Vitals/I & O Vital Sign - Last 24 Hours 11/22/20 11/22/20 11/22/20 11/22/20 10:38 11:00 15:00 19:43 Temp 98.5 98.3 98.9 98.5 98.3 98.9 Pulse 89 89 99 95 Resp 18 18 20 B/P (MAP) 174/92 174/95 (121) 154/81 (105) 135/78 (97) Pulse Ox 100 100 99 O2 Delivery Room Air Room Air Room Air 11/22/20 11/22/20 11/23/20 11/23/20 20:40 23:14 03:36 07:00 Temp 99.2 98.8 99.5 99.2 98.8 99.5 Pulse 106 91 92 Resp 20 20 18 B/P (MAP) 181/93 (122) 164/81 (108) 161/80 (107) Pulse Ox 100 100 97 O2 Delivery Room Air Room Air Room Air Room Air 11/23/20 11/23/20 08:30 08:42 Pulse 92 B/P (MAP) 161/80 O2 Delivery Room Air Intake and Output 11/22/20 11/22/20 11/23/20 15:00 23:00 07:00 Intake Total 200 ml Balance 200 ml Justicifation of Admission Dx: Justifications for Admission: Justification of Admission Dx: Yes Hypertension: Symp at Rest ELIZABETH HOLLEY MD Nov 23, 2020 10:16
[2020-11-23 11:00] VITALS: BP 154/84
[2020-11-23] MEDS: INSULIN NPH/REG HUM 70/30 300 UNITS/3 ML VIAL. SQ SCH ×3 (11:26→22:03)
--- NOTE | 2020-11-23 11:35 | PDOC ---
VIOLENT CRIMES DETECTIVE PROGRESS NOTE Date of Service: DATE: 11/23/20 TIME: 11:34 Subjective: The pt did not receive either her NPH or regular last night. The nursing notes say that the pt refused, but the pt stated that she requested the insulin. There is still some confusion with the accuchecks and they are not recording them as desired for . The pt wonders if she can go home soon. Explained that without receiving any insulin last night we have no idea what her actual insulin regime should be. Informed the nurse and the pt of the expected insulin regime and accuchecks. The pt was also informed that we would need to go up on her Procardia. Objective: Vital Signs: Vital Signs Date Time Temp Pulse Resp B/P (MAP) Pulse Ox O2 Delivery O2 Flow Rate FiO2 11/22/20 07:00 99.3 89 17 174/92 (119) 100 Room Air 99.3 Vital Signs Date Time Temp Pulse Resp B/P (MAP) Pulse Ox O2 Delivery O2 Flow Rate FiO2 11/23/20 11:22 91 154/84 11/23/20 11:00 98.8 18 100 Room Air 98.8 Labs: Laboratory Tests Test 11/22/20 16:09 11/22/20 20:19 11/23/20 03:15 11/23/20 07:01 Glucose (Fingerstick) 197 mg/dL (70-99) H 202 mg/dL (70-99) H 218 mg/dL (70-99) H 174 mg/dL (70-99) H Test 11/23/20 10:40 Glucose (Fingerstick) 159 mg/dL (70-99) H Physical Exam: GENERAL: No apparent distress. Alert and oriented. HEENT: Head normocephalic, atraumatic. NECK: Supple LUNGS: Clear to auscultation. HEART: RRR, S1, S2 present, pulses intact ABDOMEN: Soft, positive bowel sounds. EXTREMITIES: No cyanosis or edema. NEUROLOGIC: Normal speech, normal tone PSYCHIATRIC: Normal affect, normal mood. SKIN: No ulceration. Assessment & Plan: A/P 35y @ 7.3 by LMP admitted for syncopal episode 1.) IUP u/s (11/21) revealed a most likely an early gestation. Repeat quant tomorrow. 2.) cHTN still with severe BP. Target BP for her would be b/t 13 5-160/85-110. Increased Procardia to 90 XL this am. Would add Labetaol 200 TID tomorrow if still severe. 3.) BDM still with poor control. Pt did not receive any insulin last night, so unclear how well insulin regime is; moreover accuchecks not being recorded in a meaningful way to adjust insulin regimes in . Reviewed accucheck schedule with nurse and insulin regimes of NPH 70/30 29 units am HumaLOG 15 units in am, NPH 70/30 11 units qhs and HumaLOG 11 units with dinner. Goal in would be fasting below 90 and 2hr PP values below 120. 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
[2020-11-23 15:00] VITALS: BP 126/76
[2020-11-23] MEDS ORDERED: INSULIN LISPRO 300 UNITS/3 ML VIAL. SQ SCH (17:00)
--- NOTE | 2020-11-23 18:47 | NUR ---
This RN called and verified with Dr. Guerrero that pt's IV is okay to leave out.
[2020-11-23 19:00] VITALS: BP 138/69
[2020-11-23 23:00] VITALS: BP 147/83
--- NOTE | 2020-11-23 23:53 | CARD ---
MR#: [id number] Date of Study: 11/23/2020 Ordering Physician: NORMA GAR, Referring Physician: NORMA GAR, Tech: Jacey Paula FRANKY APPROVED REPORT EXAM: LIMITED Two-dimensional echocardiogram. Other Information Quality : GoodHR: 97bpm Rhythm : NSR INDICATION Hypertension/HCVD Syncope 2D DIMENSIONS IVSd1.3 (0.7-1.1cm)LVDd4.2 (3.9-5.9cm) PWd1.3 (0.7-1.1cm)LVDs2.9 (2.5-4.0cm) FS (%) 30.4 %SV44.9 ml LVEF(%)58.2 (>50%) LEFT VENTRICLE The left ventricle is normal size. There is moderate concentric left ventricular hypertrophy. The lef t ventricular systolic function is normal and the ejection fraction is within normal range. EF 65% Th ere is normal LV segmental wall motion. RIGHT VENTRICLE The right ventricle is normal size. There is normal right ventricular wall thickness. The right ventr icular systolic function is normal. ATRIA The left atrium size is normal. The right atrium size is normal. The interatrial septum is intact wit h no evidence for an atrial septal defect or patent foramen ovale as noted on 2-D or Doppler imaging. AORTIC VALVE The aortic valve is normal in structure and function. Doppler and Color Flow revealed no significant aortic regurgitation. There is no significant aortic valvular stenosis. MITRAL VALVE The mitral valve is normal in structure and function. There is no mitral valve stenosis. Doppler and Color Flow revealed no mitral valve regurgitation noted. TRICUSPID VALVE The tricuspid valve is normal in structure and function. Doppler and Color Flow revealed no tricuspid valve regurgitation noted. There is no tricuspid valve prolapse or vegetation. There is no tricuspid valve stenosis. GREAT VESSELS The aortic root is normal in size. PERICARDIAL EFFUSION There is no pleural effusion. There is no evidence of significant pericardial effusion. Critical Notification Critical Value: No <Conclusion> There is moderate concentric left ventricular hypertrophy. The left ventricular systolic function is normal and the ejection fraction is within normal range. EF 65% There is normal LV segmental wall motion. Limited TTE only for LV wall motion and function. Signed by : Norma Gar, Electronically Approved : 11/23/2020 23:52:47
[2020-11-24 03:00] VITALS: BP 149/80
--- NOTE | 2020-11-24 04:25 | NUR ---
Pt called to inform she is feeling funny and wants her blood sugar checked. Upon arrival in room she verbalized she feels jittery, dizzy and maybe a little sweaty and shes felt this way in the past when blood sugar is low. FSBS result is 81 and prior result at [address] Villar was called to confirm if he wanted the sched 11 units 70/30 to be given with a FSBS result 108, he confirmed yes please proceed with administration. Pt given juice, peanut butter and crackers upon request, education provided, will continue to monitor.
[2020-11-24 07:00] VITALS: BP 137/72
[2020-11-24] MEDS: PRENATAL MULTIVITAMIN TABLET. PO SCH (08:38)
[2020-11-24] MEDS: AMOXICILLIN/K CLAV 875/125MG TABLET. PO SCH (08:39)
[2020-11-24] MEDS: LACTOBACILLUS RHAMNOSUS GG 1 CAPSULE. PO SCH (08:39)
[2020-11-24] MEDS: INSULIN NPH/REG HUM 70/30 300 UNITS/3 ML VIAL. SQ SCH (08:49)
[2020-11-24] MEDS: INSULIN LISPRO 300 UNITS/3 ML VIAL. SQ SCH ×3 (08:53→12:13)
[2020-11-24] MEDS: DOCUSATE SODIUM 100 MG CAPSULE. PO SCH (08:54)
--- NOTE | 2020-11-24 09:55 | PDOC ---
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 Discussed goals of FSBS with pt. Explained that overall her numbers seemed to be improved and she may be able to be d/c this afternoon. She will need lancets/glucometer etc. Objective: Vital Signs: Vital Signs Date Time Temp Pulse Resp B/P (MAP) Pulse Ox O2 Delivery O2 Flow Rate FiO2 11/23/20 07:00 99.5 92 18 161/80 (107) 97 Room Air 99.5 Vital Signs Date Time Temp Pulse Resp B/P (MAP) Pulse Ox O2 Delivery O2 Flow Rate FiO2 11/24/20 08:39 88 137/72 11/24/20 07:00 98.3 18 99 Room Air 98.3 Labs: Laboratory Tests Test 11/23/20 10:40 11/23/20 15:54 11/23/20 16:09 11/23/20 18:32 Glucose (Fingerstick) 159 mg/dL (70-99) H 89 mg/dL (70-99) 94 mg/dL (70-99) 111 mg/dL (70-99) H Test 11/23/20 20:14 11/24/20 03:35 11/24/20 03:57 11/24/20 07:36 Glucose (Fingerstick) 108 mg/dL (70-99) H 81 mg/dL (70-99) 172 mg/dL (70-99) H Maternal Serum HCG Beta Subunit 3664 mIU/mL (0-5) H Physical Exam: GENERAL: No apparent distress. Alert and oriented. HEENT: Head normocephalic, atraumatic. NECK: Supple LUNGS: Clear to auscultation. HEART: RRR, S1, S2 present, pulses intact ABDOMEN: Soft, positive bowel sounds. EXTREMITIES: No cyanosis or edema. NEUROLOGIC: Normal speech, normal tone PSYCHIATRIC: Normal affect, normal mood. SKIN: No ulceration. Assessment & Plan: A/P 35y @ 7.4 by LMP admitted for syncopal episode 1.) IUP u/s (11/21) revealed a most likely an early gestation. Quant continuing to rise which is reassuring. Will repeat u/s as outpt in a wk in the office. 2.) cHTN nml to mild range BPs with the increase of Procardia to 90 XL. Target BP for her would be b/t 135-160/85-110. s/p echo 3.) BDM Pt with a fasting of 81 this am (172 was not a true fasting), yesterday PP breakfast (159), PP lunch (89, little low may adjust morning NPH depending on results today), and PP dinner (111). Current regime is 29N/15R/11R/11N. 4.) AMA will offer genetic testing as outpt 5.) Recurrent loss likely secondary to her comorbidities 6.) Elevated Cr typically anything over 1.0 in is abnml 7.) Anemia Hgb 11.3 8.) Dispo may be able to d/c this afternoon. Will need insulin and supplies STEFFI MACIAS MD Nov 24, 2020 09:55
[2020-11-24 11:00] VITALS: BP 135/75
--- NOTE | 2020-11-24 12:42 | PDOC ---
[facility] PROGRESS NOTE Date of Service DOS: DATE: 11/24/20 TIME: 12:38 Chief Complaint Chief Complaint A/P: Syncope and collapse morbid obesity Hyperglycemia due to type 2 diabetes mellitus - Current regime is 29N/15R/11R/11N. Poorly-controlled hypertension, persistent Proteinuria Suspected early intrauterine gestational sac in expected position / gestational age of 5 weeks and 2 days. 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 Will need insulin and supplies ADMITTED ss insulin, continued adjustment needed bp control home meds, labetalol OB CONSULT A1C VITS TELE IV FLUIDS ACCUCHECKS AMBULATE FREQUENTLY for dvt prevention Informed the nurse and the pt of the expected insulin regime and accuchecks. we would need to go up on her Procardia. ER 90 MG DAILY D/W RN History of Present Illness History of Present Illness Ms Addison is a 35yo F w/ PMHx obesity, DM2 who presented to the ED c/o dizziness, high bp, syncope at work 11/21/2020, states was told that she has had HTN with her last . She has never been dxed with or txed for HTN. 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 patient states that she is 7 weeks . GLUCOSE IN ER was 300, OB and cardiology consulted cr 1.1. US confirms intrauterine likely 5wk, 2d. Consults: Cardiology, superintendent tests 11/22: ss insulin, continued adjustment needed, needs to syay in hospital for this. bp control home meds, nifedipine Given her elevated BP and proteinuria she underwent echocardiogram: There is moderate concentric left ventricular hypertrophy. The left ventricular systolic function is normal and the ejection fraction is within normal range. EF 65% There is normal LV segmental wall motion. Limited TTE only for LV wall motion and function. BP and blood glucose better controlled. 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 She is anxious to go home. 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 Vitals/I&O Vitals/I&O: Vital Signs Date Time Temp Pulse Resp B/P (MAP) Pulse Ox O2 Delivery O2 Flow Rate FiO2 11/24/20 11:00 98.3 91 18 135/75 (95) 100 Room Air 98.3 I & O 11/23/20 11/23/20 11/24/20 15:00 23:00 07:00 Intake Total 360 ml 240 ml Output Total 0 ml Balance 360 ml 240 ml Physical Exam Physical Exam: hirsute facial appearance General: Alert, Oriented X3, Cooperative, No acute distress Heart: Regular rate, Normal S1, Normal S2, No murmurs Lungs: Clear Abdomen: Normal bowel sounds, Soft, No tenderness, No hepatosplenomegaly Extremities: No clubbing, No cyanosis, No edema Skin: No rashes Labs Labs: Laboratory Tests Test 11/23/20 15:54 11/23/20 16:09 11/23/20 18:32 11/23/20 20:14 Glucose (Fingerstick) 89 mg/dL (70-99) 94 mg/dL (70-99) 111 mg/dL (70-99) 108 mg/dL (70-99) Test 11/24/20 03:35 11/24/20 03:57 11/24/20 07:36 11/24/20 10:36 Maternal Serum HCG Beta Subunit 3664 mIU/mL (0-5) Glucose (Fingerstick) 81 mg/dL (70-99) 172 mg/dL (70-99) 172 mg/dL (70-99) Assessment and Plan Assessmemt and Plan Problems Medical Problems: (1) Hyperglycemia due to type 2 diabetes mellitus Status: Acute (2) Poorly-controlled hypertension Status: Acute (3) Syncope and collapse Status: Acute (4) UTI in Status: Acute Comment Review of Relevant I have reviewed the following items delmi (where applicable) has been applied. Medications: Current Medications Medications (Trade) Dose Ordered Sig/Sylvia Route PRN Reason Start Time Stop Time Status Last Admin Dose Admin Insulin Human Lispro (HumaLOG) 11 units DAILYWSUP SQ 11/23/20 17:00 11/23/20 17:11 Nifedipine (Procardia Xl) 90 mg DAILY PO 11/24/20 09:00 11/24/20 08:39 Justifications for Admission Other Justification SYDNEY CONLEY MD Nov 24, 2020 12:42
--- NOTE | 2020-11-24 12:47 | PDOC ---
CARDIO Progress Notes Date and Time Date of Service 11/24/20 Time of Evaluation 1245 Subjective Subjective: No Chest Pain, No shortness of breath, No Palpitations, No Dizziness Vitals Vitals Vital Signs Date Time Temp Pulse Resp B/P (MAP) Pulse Ox O2 Delivery O2 Flow Rate FiO2 11/24/20 11:00 98.3 91 18 135/75 (95) 100 Room Air 98.3 Weight Weight [ ] Input and Output Intake and Output Intake and Output 11/24/20 07:00 Intake Total 600 ml Output Total 0 ml Balance 600 ml Intake Oral 600 ml Output Stool Total 0 ml # Voids 2 Laboratory Labs Laboratory Tests Test 11/23/20 15:54 11/23/20 16:09 11/23/20 18:32 11/23/20 20:14 Glucose (Fingerstick) 89 mg/dL (70-99) 94 mg/dL (70-99) 111 mg/dL (70-99) 108 mg/dL (70-99) Test 11/24/20 03:35 11/24/20 03:57 11/24/20 07:36 11/24/20 10:36 Maternal Serum HCG Beta Subunit 3664 mIU/mL (0-5) Glucose (Fingerstick) 81 mg/dL (70-99) 172 mg/dL (70-99) 172 mg/dL (70-99) Microbiology Micro Microbiology 11/21/20 Urine Culture - Final, Complete Physical Exam HEENT: Neck Supple W Full Motion Chest: Symmetric LUNGS: Clear to Auscultation Heart: S1S2, RRR Abdomen: Soft N/T Extremities: No Edema Neurology: alert, oriented, follow commands Assessment Assessment 1. Chronic hypertension; echo with preserved LV systolic function 2. Diabetes, II 3. Intrauterine ; early gestation. 4. Near syncope; no acute events on tele Recommendations Blood pressure control, home monitoring Okay to discharge from a CV standpoint Justicifation of Admission Dx: Justifications for Admission: Justification of Admission Dx: Yes Hypertension: Symp at Rest TITO DEL TORO APRN Nov 24, 2020 12:47
[2020-11-24] MEDS ORDERED: INSU100I11 SQ (13:00)
[2020-11-24] MEDS ORDERED: NPH,100I3 SQ (13:00)
[2020-11-24] MEDS ORDERED: DOCU-153 PO (13:00)
[2020-11-24] MEDS ORDERED: PREN1TAB58 PO (13:00)
[2020-11-24] MEDS ORDERED: NIFE30TA15 PO (13:00)
--- NOTE | 2020-11-24 13:09 | PDOC3 ---
Discharge Summary Visit Information Date of Admission: Nov 21, 2020 Date of Discharge: Nov 24, 2020 Admitting Diagnosis: Syncope Final Diagnosis Problems Medical Problems: (1) Hyperglycemia due to type 2 diabetes mellitus Status: Acute (2) Poorly-controlled hypertension Status: Acute (3) Syncope and collapse Status: Acute (4) UTI in Status: Acute Brief Hospital Course Allergies Allergies Coded Allergies Type Severity Reaction Last Updated Verified broccoli Allergy Intermediate 07/10/16 Yes hydrocodone Allergy Intermediate Itching 07/07/16 No Vital Signs Vital Signs Date Time Temp Pulse Resp B/P (MAP) Pulse Ox O2 Delivery O2 Flow Rate FiO2 11/24/20 11:00 98.3 91 18 135/75 (95) 100 Room Air 98.3 Lab Results Laboratory Tests Test 11/22/20 16:09 11/22/20 20:19 11/23/20 03:15 11/23/20 07:01 Glucose (Fingerstick) 197 mg/dL (70-99) 202 mg/dL (70-99) 218 mg/dL (70-99) 174 mg/dL (70-99) Test 11/23/20 10:40 11/23/20 15:54 11/23/20 16:09 11/23/20 18:32 Glucose (Fingerstick) 159 mg/dL (70-99) 89 mg/dL (70-99) 94 mg/dL (70-99) 111 mg/dL (70-99) Test 11/23/20 20:14 11/24/20 03:35 11/24/20 03:57 11/24/20 07:36 Glucose (Fingerstick) 108 mg/dL (70-99) 81 mg/dL (70-99) 172 mg/dL (70-99) Maternal Serum HCG Beta Subunit 3664 mIU/mL (0-5) Test 11/24/20 10:36 Glucose (Fingerstick) 172 mg/dL (70-99) Laboratory Tests Test 11/23/20 15:54 11/23/20 16:09 11/23/20 18:32 11/23/20 20:14 Glucose (Fingerstick) 89 mg/dL (70-99) 94 mg/dL (70-99) 111 mg/dL (70-99) 108 mg/dL (70-99) Test 11/24/20 03:35 11/24/20 03:57 11/24/20 07:36 11/24/20 10:36 Maternal Serum HCG Beta Subunit 3664 mIU/mL (0-5) Glucose (Fingerstick) 81 mg/dL (70-99) 172 mg/dL (70-99) 172 mg/dL (70-99) Brief Hospital Course Ms Addison is a 35yo F w/ PMHx obesity, DM2 who presented to the ED c/o dizziness, high bp, syncope at work 11/21/2020, states was told that she has had HTN with her last . She has never been dxed with or txed for HTN. 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 patient states that she is 7 weeks . GLUCOSE IN ER was 300, OB and cardiology consulted cr 1.1. US confirms intrauterine likely 5wk, 2d. 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 bp control home meds, nifedipine Given her elevated BP and proteinuria she underwent echocardiogram: There is moderate concentric left ventricular hypertrophy. The left ventricular systolic function is normal and the ejection fraction is within normal range. EF 65% There is normal LV segmental wall motion. Limited TTE only for LV wall motion and function. BP and blood glucose better controlled. 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 She is anxious to go home. Needs outpatient highballer/GYN f/u. Problem list: Syncope and collapse morbid obesity Hyperglycemia due to type 2 diabetes mellitus - Current regime is 29N/15R/11R/11N. Poorly-controlled hypertension, persistent Proteinuria Suspected early intrauterine gestational sac in expected position / gestational age of 5 weeks and 2 days. 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 Will need insulin and supplies ADMITTED ss insulin, continued adjustment needed bp control home meds, labetalol OB CONSULT A1C VITS TELE IV FLUIDS ACCUCHECKS AMBULATE FREQUENTLY for dvt prevention Informed the nurse and the pt of the expected insulin regime and accuchecks. we would need to go up on her Procardia. ER 90 MG DAILY Greater than 30 min spent on d/c home with self care. Discharge Information Condition at Discharge: Improved Follow Up: Weeks (1) Disposition/Orders: D/C to Home Scheduled Docusate Sodium (Dok) 100 Mg Capsule, 100 MG PO BID for Constipation for 30 Days, #60 Prescribed by: SYDNEY CONLEY MD on 11/24/20 1300 Insulin Lispro (Humalog) 100 Unit/1 Ml Insuln.pen, 100 UNIT SQ BID for DM2 for 30 Days, #5 Ref 2 15 units QAM with breakfast 11 units QPM with supper Sliding scale 0-9 units with lunch Prescribed by: SYDNEY CONLEY MD on 11/24/20 1300 Nifedipine (Nifedipine Er) 30 Mg Tablet.er, 90 MG PO DAILY for hypertension for 30 Days, #90 Ref 2 Prescribed by: SYDNEY CONLEY MD on 11/24/20 1300 Nph, Human Insulin Isophane (Humulin N Kwikpen) 100 Unit/1 Ml Insuln.pen, 29 UNIT SQ BID for DM2 for 30 Days, #10 Ref 5 29 units QAM [address] Raymundo Villar for refills Please dispense #60 (sixty) pen needles BD fine 5mm 31g or equivalent for patient comfort Prescribed by: SYDNEY CONLEY MD on 11/24/20 1300 Vits W-Ca,Fe,Fa(<1MG) ( Vitamins) 1 Each Tablet, 1 TAB PO DAILY for for 30 Days, #30 Ref 2 Prescribed by: SYDNEY CONLEY MD on 11/24/20 1300 Scheduled PRN Acetaminophen (Mapap) 500 Mg Tablet, 500 MG PO PRN Q6HRS PRN for MILD PAIN / TEMP, #60 Prescribed by: AMBROSE MCDONALD MD on 07/11/16 1334 Last Action: Continued on 11/21/20 1350 by ELIZABETH HOLLEY MD Justicifation of Admission Dx: Justifications for Admission: Justification of Admission Dx: Yes Hypertension: Symp at Rest RIFFEL,CHRISTOPHER S MD Nov 24, 2020 13:09
--- NOTE | 2020-11-24 13:37 | NUR ---
SW following. Discussed with RN, pt from home with family, room air, ada diet. Discharge order for home with self care. RN advised no SW needs at this time.
--- NOTE | 2020-11-24 15:20 | NUR ---
PATIENT DISCHARGED HOME WITH FAMILY. MEDS AND FOLLOW UP REVIEWED. PT PROVIDED WITH DIET INFORMATION FOR DIABETES. STABLE UP ON DC W/ NO IV SITE.
[2020-11-25 07:25] LABS: HEMOGLOBIN A1C 12.3 % (4.8-5.6)
== END 2020-11-24 15:22 | disposition home or self-care (01) | DRG 832 ==
LOC: ER 11:59 → 6 SOUTH 13:30 → OBSVTOIN 13:34
PROVIDERS: ADMIT Family Medicine; ATTEND Family Medicine
DX: O23.41 Unspecified infection of urinary tract in pregnancy, first trimester (principal); O16.1 Unspecified maternal hypertension, first trimester; O24.911 Unspecified diabetes mellitus in pregnancy, first trimester; D64.9 Anemia, unspecified; E66.01 Morbid (severe) obesity due to excess calories; E11.65 Type 2 diabetes mellitus with hyperglycemia; I16.0 Hypertensive urgency; O26.21 Pregnancy care for patient with recurrent pregnancy loss, first trimester; O99.011 Anemia complicating pregnancy, first trimester; O99.211 Obesity complicating pregnancy, first trimester; Y99.0 Civilian activity done for income or pay; Z3A.01 Less than 8 weeks gestation of pregnancy; Z82.49 Family history of ischemic heart disease and other diseases of the circulatory system; Z79.4 Long term (current) use of insulin; Z88.8 Allergy status to other drugs, medicaments and biological substances
CPT/HCPCS: 36415; 71045; 76801; 76817; 80053; 81001; 81025; 82962; 83036; 84484; 84702; 85025; 87086; 93005; 93306; 96374; 96375; 99285; G0379; J0360; J0696; J1815; G0378

== ENCOUNTER → 2020-12-03 | Outpatient (CLI) | payer OTHER ==
[2020-11-24 11:00] VITALS: BP 135/75
[~2020-12-03] MED LIST changes: +DOCU-153 PO; +INSU100I11 SQ; -LIDO30CR TP; +LIDO30CR2 TP; +NIFE30TA15 PO; +NPH,100I3 SQ; +PREN1TAB58 PO
[2020-12-03 12:37] LABS: URIC ACID 6.3 mg/dL (2.6-6.0)
[2020-12-03 12:46] LABS: FREE T4 1.17 ng/dL (0.76-1.46); THYROID STIM HORMONE (TSH) 1.625 uIU/mL (0.358-3.74)
[2020-12-04 15:14] LABS: RUBELLA IGG ANTIBODY 5.72 index (Immune >0.99)
== END ==
LOC: RAD 11:07
PROVIDERS: ATTEND Obstetrics & Gynecology
DX: Z34.91 Encounter for supervision of normal pregnancy, unspecified, first trimester (principal); Z3A.00 Weeks of gestation of pregnancy not specified
CPT/HCPCS: 81220; 83615; 84439; 84443; 84550; 84702; 85660; 86592; 86703; 86762; 86787; 86803; 86850; 86870; 86900; 86901; 87340

== ENCOUNTER → 2020-12-10 | Outpatient (CLI) | payer OTHER ==
[2020-11-24 11:00] VITALS: BP 135/75
--- NOTE | 2020-12-10 10:28 | RAD ---
EXAMINATION: US OB <14 WKS INDICATION: Reason: / Spl. Instructions: / History: COMPARISON: None TECHNIQUE: Transabdominal ultrasound of the pelvis was performed with grayscale, spectral, and color doppler imaging. FINDINGS: UTERUS: Measures: 9.0 x 6.7 x 5.8 cm GESTATIONAL SAC: Centimeters/Mean Sac Diameter: 1.3 cm, corresponds to 6 weeks and 1 day. No pole identified. Yolk sac measures 0.3 cm. RIGHT OVARY/ADNEXA: Measures: 4.0 x 2.0 x 2.0 cm Right Ovarian Morphology: Grossly unremarkable Right Ovarian Color And Spectral Doppler Flow: Normal LEFT OVARY/ADNEXA: Measures: 3.9 x 3.9 x 1.9 cm Right Ovarian Morphology: Unremarkable Right Ovarian Color And Spectral Doppler Flow: Normal Fluid: No free fluid IMPRESSION Intrauterine gestational sac containing yolk sac measures 1.3 cm corresponds to 6 weeks and 1 day. No embryo is detected. Continued follow-up with serial beta-hCG and ultrasound to confirm . Electronically signed by: Jesus Chakraborty MD (12/10/2020 10:26 AM) [id number]
== END ==
LOC: US 08:33
PROVIDERS: ATTEND Obstetrics & Gynecology
DX: Z34.91 Encounter for supervision of normal pregnancy, unspecified, first trimester (principal); Z3A.01 Less than 8 weeks gestation of pregnancy
CPT/HCPCS: 76801

== ENCOUNTER 2020-12-24 13:20 | Emergency (ER) | payer OTHER ==
[~2020-12-24] VITALS: Ht 160 cm; Wt 95.9 kg
[2020-12-24] MEDS ORDERED: cefTRIAXone IM 500 MG VIAL. IM ONE (14:15)
[2020-12-24] MEDS ORDERED: AZITHROMYCIN 250 MG TABLET. PO ONE (14:15)
--- NOTE | 2020-12-24 14:27 | PHYS DOC ---
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 She states that she called Dr. Villar who is her OB doctor and he stated that some bleeding and pelvic pain can be normal. She states the pelvic pain is low and it is worsening. She rates her pain at a 7 out of 10. She states she did take some Tylenol. She denies urinary symptoms, back pain, fever, nausea, vomiting, dizziness, headache, cough, shortness of breath, chest pain, numbness or tingling, syncope. She states that she does have concerns for STDs and would like to be treated today. Patient has a history of diabetes, hypertension and she is . (SIMI LUCIA IT COMMUNICATIONS MANAGER) Review of Systems: Review of Systems: Constitutional: Denies fever or chills. [] Eyes: Denies change in visual acuity. [] HENT: Denies nasal congestion or sore throat. [] Respiratory: Denies cough or shortness of breath. [] Cardiovascular: Denies chest pain or edema. [] GI: + abdominal pain, denies nausea, vomiting, bloody stools or diarrhea. [] : Denies dysuria. + Vaginal bleeding [] Musculoskeletal: Denies back pain or joint pain. [] Integument: Denies rash. [] Neurologic: Denies headache, focal weakness or sensory changes. [] Endocrine: Denies polyuria or polydipsia. [] Lymphatic: Denies swollen glands. [] Psychiatric: Denies depression or anxiety. [] (SIMI LUCIA IT COMMUNICATIONS MANAGER) Heart Score: C/O Chest Pain: No Risk Factors: Risk Factors: DM, Current or recent (<one month) smoker, HTN, HLP, family history of CAD, obesity. Risk Scores: Score 0 - 3: 2.5% MACE over next 6 weeks - Discharge Home Score 4 - 6: 20.3% MACE over next 6 weeks - Admit for Clinical Observation Score 7 - 10: 72.7% MACE over next 6 weeks - Early Invasive Strategies (SIMI LUCIA APRN) Current Medications: Current Medications Medications (Trade) Dose Ordered Sig/Sylvia Start Time Stop Time Status Last Admin Dose Admin Azithromycin (Zithromax) 1,000 mg 1X ONCE 12/24/20 14:15 12/24/20 14:16 DC Ceftriaxone Sodium (Rocephin Im) 500 mg 1X ONCE 12/24/20 14:15 12/24/20 14:16 DC (SIMI LUCIA APRN) Allergies: Allergies: Allergies Coded Allergies Type Severity Reaction Last Updated Verified broccoli Allergy Intermediate 07/10/16 Yes hydrocodone Allergy Intermediate Itching 07/07/16 No (SIMI LUCIA APRN) Physical Exam: PE: Constitutional: Well developed, well nourished, no acute distress, non-toxic appearance. [] HENT: Normocephalic, atraumatic, bilateral external ears normal, oropharynx moist, no oral exudates, nose normal. [] Eyes: PERRLA, EOMI, conjunctiva normal, no discharge. [] Neck: Normal range of motion, no tenderness, supple, no stridor. [] Cardiovascular:Heart rate regular rhythm, no murmur [] Lungs & Thorax: Bilateral breath sounds clear to auscultation [] Abdomen: Bowel sounds normal, soft, low mid tenderness, no masses, no pulsatile masses. [] Skin: Warm, dry, no erythema, no rash. [] Back: No tenderness, no CVA tenderness. [] Extremities: No tenderness, no cyanosis, no clubbing, ROM intact, no edema. [] Neurologic: Alert and oriented X 3, normal motor function, normal sensory function, no focal deficits noted. [] Psychologic: Affect normal, judgement normal, mood normal. [] (SIMI LUCIA APRN) Current Patient Data: Vital Signs: Vital Signs Date Time Temp Pulse Resp B/P (MAP) Pulse Ox O2 Delivery O2 Flow Rate FiO2 12/24/20 14:06 98.2 75 18 145/79 (101) 99 Room Air 98.2 (SIMI LUCIA APRN) EKG: EKG: [] (SIMI LUCIA APRN) Radiology/Procedures: Radiology/Procedures: [] Impression: [facility] [address] [place] [address] IMAGING REPORT Signed PATIENT: MARY JUAREZ ACCOUNT: [id number] : 1985 LOCATION: ER AGE: 35 SEX: F EXAM STATUS: PRE ER ORD. PHYSICIAN: SIMI LUCIA APRN REASON: PELVIC PAIN, VAGINAL BLEEDING PROCEDURE: OB <14 WKS W/TV EXAM: Obstetrics sonogram. HISTORY: Vaginal bleeding and pelvic pain. TECHNIQUE: Transabdominal and transvaginal sonographic imaging of the pelvis was performed. COMPARISON: 12/10/2020. FINDINGS: The uterus measures 12 x 7 x 6 cm. There is a single intrauterine gestational sac with a mean sac diameter of 8.1 mm. This corresponds with a gestational age of 5 weeks and 4 days. The gestational sac is abnormally positioned within the lower uterine segment and demonstrates an abnormal configuration with internal echoes likely due to debris. No pole or yolk sac is seen. The ovaries are unremarkable. There is no pelvic free fluid. IMPRESSION: No interval growth in an intrauterine gestational sac over a two- week interval and interval transit of the sac into the lower uterine segment, consistent with impending miscarriage or missed miscarriage. Correlation with serial beta-hCG levels to confirm complete decline is recommended to exclude retained products or a pseudosac in the setting of ectopic gestation. Electronically signed by: Maureen Estrada MD (12/24/2020 2:48 PM) [id number] DICTATED and SIGNED BY: MAUREEN ESTRADA MD DATE: 12/24/20 [id number] (SIMI LUCIA APRN) Course & Med Decision Making: Course & Med Decision Making Pertinent Labs and Imaging studies reviewed. (See chart for details) See HPI. Alert and oriented x4. Ambulatory with a steady gait. Skin pink warm and dry. Afebrile. Low mid abdominal tenderness with palpation. She is treated with Rocephin and azithromycin in the ED for STDs. Pelvic Exam: Guest Relation Officer present Abdomen: Nontender External Genitalia: Normal Skin Speculum: Normal vaginal mucosa, bloody cervical discharge, cervical os closed Bimanual: No adnexal masses or tenderness, No CMT Wet prep shows bacterial vaginosis. Ultrasound shows impending miscarriage. I have called and spoken to Dr. Villar. He states he will come down and speak to the patient. [] (SIMI LUCIA APRN) Dragon Disclaimer: Dragon Disclaimer: This electronic medical record was generated, in whole or in part, using a voice recognition dictation system. (SIMI LUCIA APRN) Departure Departure Impression: Primary Impression: Threatened miscarriage Additional Impressions: Bacterial vaginosis Concern about STD in female without diagnosis Disposition: HOME / SELF CARE / HOMELESS Condition: STABLE Referrals: NO PCP (PCP) STEFFI VILLAR MD Patient Instructions: Bacterial Vaginosis, Miscarriage Additional Instructions: Follow-up with Dr. Villar. Drink plenty of fluids. If you begin bleeding very heavily and going through more than 1 pad an hour you need to come to the emergency room. Take medication as prescribed and with food. Scripts Metronidazole (METRONIDAZOLE) 500 Mg Tablet 1 TAB PO BID for 7 Days, #14 TAB 0 Refills Prov: SIMI LUCIA APRN 12/24/20 Attending Signature I have participated in the care of this patient and I have reviewed and agree with all pertinent clinical information above including history, exam, and recommendations. (SAM METCALF DO) SIMI LUCIA APRN December 24, 2020 14:26 SAM METCALF DO December 24, 2020 16:22
[2020-12-24 14:28] LABS: BASO # 0.1 x10^3/uL (0.0-0.2); BASO % 1 % (0-3); EOS # 0.1 x10^3/uL (0.0-0.7); EOS % 1 % (0-3); HEMATOCRIT 32.8 % (36.0-47.0); HEMOGLOBIN 10.9 g/dL (12.0-15.5); LYMPH # 1.9 x10^3/uL (1.0-4.8); LYMPH % 17 % (24-48); MEAN CORPUSCULAR HEMOGLOBIN 27 pg (25-35); MEAN CORPUSCULAR HGB CONC 33 g/dL (31-37); MEAN CORPUSCULAR VOLUME 82 fL (79-100); MONO # 0.5 x10^3/uL (0.0-1.1); MONO % 5 % (0-9); NEUT # 9.1 x10^3/uL (1.8-7.7); NEUT % 78 % (31-73); PLATELET COUNT 370 x10^3/uL (140-400); RED BLOOD COUNT 4.01 x10^6/uL (3.50-5.40); RED CELL DISTRIBUTION WIDTH 13.4 % (11.5-14.5); WHITE BLOOD COUNT 11.8 x10^3/uL (4.0-11.0)
[2020-12-24 14:38] LABS: CALCIUM 8.8 mg/dL (8.5-10.1); CREATININE 1.4 mg/dL (0.6-1.0); GFR 51.8; POTASSIUM 3.6 mmol/L (3.5-5.1)
[2020-12-24 14:44] LABS: ALBUMIN 2.5 g/dL (3.4-5.0); ALBUMIN/GLOBULIN RATIO 0.5 (1.0-1.7); TOTAL BILIRUBIN 0.2 mg/dL (0.2-1.0); TOTAL PROTEIN 7.4 g/dL (6.4-8.2)
--- NOTE | 2020-12-24 14:50 | RAD ---
EXAM: Obstetrics sonogram. HISTORY: Vaginal bleeding and pelvic pain. TECHNIQUE: Transabdominal and transvaginal sonographic imaging of the pelvis was performed. COMPARISON: 12/10/2020. FINDINGS: The uterus measures 12 x 7 x 6 cm. There is a single intrauterine gestational sac with a me an sac diameter of 8.1 mm. This corresponds with a gestational age of 5 weeks and 4 days. The gestati onal sac is abnormally positioned within the lower uterine segment and demonstrates an abnormal confi guration with internal echoes likely due to debris. No pole or yolk sac is seen. The ovaries ar e unremarkable. There is no pelvic free fluid. IMPRESSION: No interval growth in an intrauterine gestational sac over a two-week interval and interv al transit of the sac into the lower uterine segment, consistent with impending miscarriage or missed miscarriage. Correlation with serial beta-hCG levels to confirm complete decline is recommended to e xclude retained products or a pseudosac in the setting of ectopic gestation. Electronically signed by: Maureen Bear MD (12/24/2020 2:48 PM) [id number]
[2020-12-24 15:17] LABS: BILIRUBIN,URINE NEGATIVE (NEG); CLARITY,URINE CLEAR; COLOR,URINE YELLOW; NITRITE,URINE NEGATIVE (NEG); PROTEIN,URINE >=300 mg/dL (NEG-TRACE); UROBILINOGEN,URINE 0.2 mg/dL (0.2 mg/dL)
[2020-12-24 15:45] LABS: HYALINE CASTS, URINE MANY /HPF
[2020-12-24 15:47] LABS: AMORPHOUS SEDIMENT,UR PRESENT /HPF; BACTERIA,URINE 0 /HPF (0-FEW)
[2020-12-24] MEDS ORDERED: METR-34 PO (16:02)
[2020-12-24 16:07] VITALS: BP 168/94
[2020-12-25 17:27] LABS: GC PROBE Negative (Negative)
== END 2020-12-24 16:07 | disposition home or self-care (01) ==
LOC: ER 13:20
DX: O20.0 Threatened abortion (principal); O23.591 Infection of other part of genital tract in pregnancy, first trimester; B96.89 Other specified bacterial agents as the cause of diseases classified elsewhere; Z20.2 Contact with and (suspected) exposure to infections with a predominantly sexual mode of transmission; Z3A.01 Less than 8 weeks gestation of pregnancy; Z88.5 Allergy status to narcotic agent; Z91.018 Allergy to other foods
CPT/HCPCS: 36415; 76801; 76817; 80053; 81001; 84702; 85025; 86900; 86901; 87491; 87591; 96372; 99285; J0696; Q0111

== ENCOUNTER 2021-06-09 12:56 | Emergency (ER) | payer OTHER ==
[~2021-06-09] VITALS: Ht 157.5 cm; Wt 92.2 kg
[~2021-06-09 12:56] MED LIST changes: +DOCU-148 PO; -DOCU-153 PO; +METR-34 PO
[2021-06-09 13:45] VITALS: BP 231/108
[2021-06-09] MEDS ORDERED: AZITHROMYCIN 250 MG TABLET. PO ONE (14:00)
[2021-06-09] MEDS ORDERED: metroNIDAZOLE 500 MG TABLET PO ONE (14:00)
[2021-06-09] MEDS ORDERED: cefTRIAXone IM 500 MG VIAL. IM ONE (14:00)
[2021-06-09 14:06] LABS: BILIRUBIN,URINE NEGATIVE (NEG); CLARITY,URINE CLEAR; COLOR,URINE YELLOW; NITRITE,URINE NEGATIVE (NEG); PROTEIN,URINE >=300 mg/dL (NEG-TRACE); UROBILINOGEN,URINE 0.2 mg/dL (0.2 mg/dL)
--- NOTE | 2021-06-09 14:07 | PHYS DOC ---
Past Medical History Past Medical History: Diabetes-Type II, Hypertension, Other Additional Past Medical Histor: L breast rib and stomach tumor/cyst removal (LIVIA SOUSA APRN) Past Surgical History: Other Additional Past Surgical Histo: L breast rib and stomach tumor/cyst removal 07/2016 (LIVIA SOUSA APRN) Smoking Status: Never Smoker Alcohol Use: None Drug Use: None (LIVIA SOUSA APRN) General Adult EDM: Chief Complaint: SEXUALLY TRANSMITTED DISEASE HPI: HPI: Patient is a 36 year old female who presents with concerns for STD. Patient states her boyfriend's been cheating on her and she was told that he tested positive STD. Patient denies pain with urination, abnormal discharge or odor. Patient has history of STDs, hypertension, and diabetes. (LIVIA SOUSA APRN) Review of Systems: Review of Systems: ROS At least 10 ROS systems have been reviewed and are negative except as documented in the HPI. General: Negative except as outlined in HPI above. Skin: Negative except as outlined in HPI above. HEENT: Negative except as outlined in HPI above. Neck: Negative except as outlined in HPI above. Respiratory: Negative except as outlined in HPI above.. Cardiovascular: Negative except as outlined in HPI above. Abdomen: Negative except as outlined in HPI above. : Negative except as outlined in HPI above. Back/MSK: Negative except as outlined in HPI above. Neuro: Negative except as outlined in HPI above. Psych: Negative except as outlined in HPI above. (LIVIA SOUSA APRN) Heart Score: C/O Chest Pain: No Risk Factors: Risk Factors: DM, Current or recent (<one month) smoker, HTN, HLP, family history of CAD, obesity. Risk Scores: Score 0 - 3: 2.5% MACE over next 6 weeks - Discharge Home Score 4 - 6: 20.3% MACE over next 6 weeks - Admit for Clinical Observation Score 7 - 10: 72.7% MACE over next 6 weeks - Early Invasive Strategies (LIVIA SOUSA APRN) Allergies: Allergies: Allergies Coded Allergies Type Severity Reaction Last Updated Verified broccoli Allergy Intermediate 07/10/16 Yes hydrocodone Allergy Intermediate Itching 07/07/16 No (LIVIA SOUSA APRN) Physical Exam: PE: Constitutional: Well developed, well nourished, no acute distress, non-toxic appearance. [] HENT: Normocephalic, atraumatic, bilateral external ears normal, oropharynx moist, no oral exudates, nose normal. [] Eyes: PERRLA, EOMI, conjunctiva normal, no discharge. [] Neck: Normal range of motion, no tenderness, supple, no stridor. [] Cardiovascular:Heart rate regular rhythm, no murmur [] Lungs & Thorax: Bilateral breath sounds clear to auscultation [] Abdomen: Bowel sounds normal, soft, no tenderness, no masses, no pulsatile masses. [] Skin: Warm, dry, no erythema, no rash. [] Back: No tenderness, no CVA tenderness. [] Extremities: No tenderness, no cyanosis, no clubbing, ROM intact, no edema. [] Neurologic: Alert and oriented X 3, normal motor function, normal sensory function, no focal deficits noted. [] Psychologic: Affect normal, judgement normal, mood normal. [] (LIVIA SOUSA APRN) Current Patient Data: Labs: Laboratory Tests Test 06/09/21 13:34 POC Urine HCG, Qualitative Hcg negative (Negative) (LIVIA SOUSA APRN) EKG: EKG: [] (LIVIA SOUSA APRN) Radiology/Procedures: Radiology/Procedures: [] (LIVIA SOUSA APRN) Course & Med Decision Making: Course & Med Decision Making Pertinent Labs and Imaging studies reviewed. (See chart for details) [] 36-year-old female presents with concerns for STDs. Patient treated with Rocephin, azithromycin, Flagyl. Advised patient she needs to avoid sex for 7 days to prevent transmission and avoid all partners in the previous 60 days until tested and treated. Patient is appreciative and okay with discharge plan. (LIVIA SOUSA APRN) Dragon Disclaimer: Dragon Disclaimer: This electronic medical record was generated, in whole or in part, using a voice recognition dictation system. (LIVIA SOUSA APRN) Departure Departure Impression: Primary Impression: Concern about sexually transmitted disease in female withoutdiagnosis Disposition: HOME / SELF CARE / HOMELESS Condition: STABLE Referrals: NO PCP (PCP) Patient Instructions: Sexually Transmitted Disease, [id number] Additional Instructions: You are seen in the emergency room for concerns for sexually transmitted disease. You were treated prophylactically. We will contact you with test results. Make sure you abstain from sex for the next 7 days and abstain from sexual contact with previous partners until tested and treated. Turn to the emergency room if you have worsening symptoms or concerns. EMERGENCY DEPARTMENT GENERAL DISCHARGE INSTRUCTIONS Thank you for coming to [facility] Emergency Department (ED) today and trusting us with you care. We trust that you had a positive experience in our Emergency Department. If you wish to speak to the department management, you may call the Director at [phone]. YOUR FOLLOW UP INSTRUCTIONS ARE FOLLOWS: 1. Do you have a private Doctor? If you do not have a private doctor, please ask for a resource list of physicians or clinics that may be able to assist you with follow up care. 2. The Emergency Physicain has interpreted your x-rays. The X-Ray specialist will also review them. If there is a change in the findings, you will be notified in 48 hours when at all possible. 3. A lab test or culture has been done, your results will be reviewed and you will be notified if you need a change in treatment. ADDITIONAL INSTRUCTIONS AND INFORMATION: 1. Your care today has been supervised by a physician who is specially trained in emergency care. Many problems require more than one evaluation for a complete diagnosis and treatment. We recommend that you schedule your follow up appointment as recommended to ensure complete treatment of you illness or injury. If you are unable to obtain follow up care and continue to have a problem, or if your condition worsens, we recommend that you return to the ED. 2. We are not able to safely determine your condition over the phone nor are we able to give sound medical advice over the phone. For these safety reasons, if you call for medical advice we will ask you to come to the ED for further evaluation. 3. If you have any questions regarding these discharge instructions please call the ED at [phone]. SAFETY INFORMATION: In the interest of safety, wellness, and injury prevention; we encourage you to wear your sealbelt, if you smoke; quite smoking, and we encourage family to use a protective helmet for bicycling and other sporting events that present an increased risk for head injury. IF YOUR SYMPTOMS WORSEN OR NEW SYMPTOMS DEVELOP, OR YOU HAVE CONCERNS ABOUT YOUR CONDITION; OR IF YOUR CONDITION WORSENS WHILE YOU ARE WAITING FOR YOUR FOLLOW UP APPOINTMENT; EITHER CONTACT YOUR PRIMARY CARE DOCTOR, THE PHYSICIAN WHOSE NAME AND NUMBER YOU WERE GIVEN, OR RETURN TO THE ED IMMEDIATELY. Attending Signature I have participated in the care of this patient and I have reviewed and agree with all pertinent clinical information above including history, exam, and recommendations. (SAM METCALF DO) LIVIA SOUSA APRN Jun 09, 2021 14:06 SAM METCALF DO Jun 09, 2021 15:08
[2021-06-09 14:15] LABS: BACTERIA,URINE MODERATE /HPF (0-FEW); HYALINE CASTS, URINE FEW /HPF
== END 2021-06-09 14:25 | disposition home or self-care (01) ==
LOC: ER 12:56
DX: Z20.2 Contact with and (suspected) exposure to infections with a predominantly sexual mode of transmission (principal); E11.9 Type 2 diabetes mellitus without complications; I10 Essential (primary) hypertension; Z88.5 Allergy status to narcotic agent; Z91.018 Allergy to other foods
CPT/HCPCS: 81001; 81025; 87086; 87491; 87591; 96372; 99283; J0696

== ENCOUNTER 2021-09-16 10:27 | Observation (INO) | payer OTHER ==
[~2021-09-16] VITALS: Ht 160 cm; Wt 88.2 kg
--- NOTE | 2021-09-16 10:41 | PHYS DOC ---
Past Medical History Past Medical History: Diabetes-Type II, Hypertension, Other Additional Past Medical Histor: L breast rib and stomach tumor/cyst removal Past Surgical History: Other Additional Past Surgical Histo: L breast rib and stomach tumor/cyst removal 07/2016 Smoking Status: Never Smoker Alcohol Use: None Drug Use: None General Adult EDM: Chief Complaint: UPPER EXTREMITY PAIN HPI: HPI: Patient is a 36 year old female who is here with a brief episode of left-sided face tingling and left sided flank tingling. She reports that the tingling radiated down her left leg. Symptoms lasted a few minutes and are currently resolved. Symptoms began shortly prior to arrival. She is currently asymptomatic. She denies facial droop, speech difficulty, dizziness, motor weakness, numbness. She denies left upper extremity symptoms. She denies chest pain, palpitations, dyspnea, diaphoresis, abdominal pain, nausea or vomiting. Denies urinary symptoms. Denies incontinence of urine or stool. 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 She reports having a very mild headache. She denies fall, head injury or syncope. She has chronic, poorly controlled hypertension. She did not take her medications today, she missed all of her doses yesterday as well. She also has chronically poorly controlled type 2 diabetes mellitus, and she has not been able to receive her oral hypoglycemic agents for several weeks, because reportedly the pharmacy would not approve them to be filled. Review of Systems: Review of Systems: Constitutional: Denies fever or chills. [] Eyes: Chronic vision loss from retinopathy in her left eye, no acute vision changes HENT: Denies nasal congestion or sore throat. [] Respiratory: Denies cough or shortness of breath. [] Cardiovascular: Denies chest pain or edema. [] GI: Denies abdominal pain, nausea, vomiting : Denies urinary symptoms or incontinence. Musculoskeletal: Denies back pain or joint pain. [] Integument: Denies rash. [] Neurologic: She does report having a mild headache. Denies thunderclap headache, denies syncope or near syncope. Denies focal motor weakness. Denies numbness. She does report having a brief episode of left lateral leg and foot tingling, currently resolved. Left flank tingling, currently resolved, left facial tingling, currently resolved. Endocrine: Chronically poorly controlled diabetes mellitus with hyperglycemia. Lymphatic: Denies swollen glands. [] Psychiatric: Denies depression or anxiety. [] Heart Score: C/O Chest Pain: No Risk Factors: Risk Factors: DM, Current or recent (<one month) smoker, HTN, HLP, family history of CAD, obesity. Risk Scores: Score 0 - 3: 2.5% MACE over next 6 weeks - Discharge Home Score 4 - 6: 20.3% MACE over next 6 weeks - Admit for Clinical Observation Score 7 - 10: 72.7% MACE over next 6 weeks - Early Invasive Strategies Allergies: Allergies: Allergies Coded Allergies Type Severity Reaction Last Updated Verified broccoli Allergy Intermediate 09/16/21 Yes hydrocodone Allergy Intermediate Itching 09/16/21 No Physical Exam: PE: Constitutional: Well developed, well nourished, no acute distress, non-toxic appearance. [] HENT: Normocephalic, atraumatic, oropharynx is patent and clear, mucous membranes are moist. No facial asymmetry, no facial edema, evidence of trauma. Bilateral external canals are normal, bilateral TMs are clear. Nares are p atent and clear without rhinorrhea or epistaxis Eyes: PERRL, EOMI, conjunctiva normal, no discharge. Sclera are anicteric. No nystagmus. No evidence of periorbital edema or erythema or trauma Neck: Normal range of motion, no tenderness, supple, no stridor. No JVD. Trachea midline. No meningismus. Cardiovascular:Heart rate regular rhythm, 2 radial +2 posterior tibial pulses bilaterally. Lungs & Thorax: Bilateral breath sounds clear to auscultation [] Abdomen: Abdomen is soft, nondistended, nontender to palpation. No CVA te nderness. No flank abdominal ecchymoses. Skin: Warm, dry, no erythema, no rash. [] Back: No tenderness, no CVA tenderness. [] Extremities: No tenderness, no cyanosis, no clubbing, ROM intact, no edema. No calf tenderness. Neurologic: He is awake, alert, oriented x3, cranial nerves II through XII grossly intact, 5 out of 5 motor strength all 4 extremities, no limb ataxia, no dysmetria, no pronator drift, sensation is grossly intact, speech is clear and fluent Psychologic: Affect normal, judgement normal, mood normal. [] EKG: EKG: EKG is interpreted at 1049 Rhythm is sinus Rate is 90 bpm [place] is left No STEMI Radiology/Procedures: Radiology/Procedures: IMAGING REPORT Signed PATIENT: MARY JUAREZ ACCOUNT: [id number] : 1985 LOCATION: ER AGE: 36 SEX: F EXAM STATUS: REG ER ORD. PHYSICIAN: VIBHA BOWMAN DO REASON: Left sided tingling PROCEDURE: CT HEAD WO CONTRAST EXAM: CT Head without IV contrast CLINICAL HISTORY: Reason: Left sided tingling / Spl. Instructions: / History: COMPARISON: None. TECHNIQUE: Routine CT of the head without contrast. RS compliance statement - One or more of the following individualized dose reduction techniques were utilized for this study: 1. Automated exposure control 2. Adjustment of the mA and/or kV according to patient size 3. Use of iterative reconstruction technique FINDINGS: There is no evidence of hemorrhage, mass or extra-axial fluid collection. Ward-white differentiation is maintained with no evidence of edema. There is no mass effect or shift of the intracranial structures. The ventricles, basilar cisterns and cortical sulci are normal in size and configuration for the patients stated age. The cerebellum and brainstem are unremarkable. The calvarium demonstrates no evidence of fracture or focal lesion. There is normal aeration of the visualized paranasal sinuses and mastoid air cells. The visualized portions of the orbits are normal. IMPRESSION: No evidence for acute intracranial process. Electronically signed by: Kenny Cabello MD (09/16/2021 11:31 AM) [id number] DICTATED and SIGNED BY: KENNY CABELLO MD DATE: 09/16/21 [id number] IMAGING REPORT Signed PATIENT: MARY JUAREZ ACCOUNT: [id number] : 1985 LOCATION: ER AGE: 36 SEX: F EXAM STATUS: REG ER ORD. PHYSICIAN: VIBHA BOWMAN DO REASON: left sided tingling PROCEDURE: PORTABLE CHEST 1V EXAM: Chest, single view. HISTORY: Left-sided paresthesia. COMPARISON: 11/21/2020 FINDINGS: A frontal view of the chest is obtained. There is no infiltrate, pleural effusion or pneumothorax. There is a stable cardiac silhouette. There is thoracic scoliosis. IMPRESSION: No acute pulmonary finding. Electronically signed by: Maureen Estrada MD (09/16/2021 11:15 AM) [id number] DICTATED and SIGNED BY: MAUREEN ESTRADA MD DATE: 09/16/21 [id number] Course & Med Decision Making: Course & Med Decision Making Pertinent Labs and Imaging studies reviewed. (See chart for details) The patient is given oral labetalol 100 mg as well as oral amlodipine 5 mg, these are her usual doses of her medications. P.o. aspirin is given. She has not had any return of subjective numbness. She has a nonfocal neurologic exam. Imaging studies are unremarkable. Her blood pressure is markedly improved, current blood pressure as of 1340 is 195/91, O2 saturation 96% on room air, heart rate in the 60s. No indication for parenteral antihypertensives at this time based on appropriate reduction in blood pressure measurements here. I have discussed the findings, differential diagnosis and plan of care with her. I explained that I recommend hospitalization/admission, serial neurologic exams. She is comfortable with this plan. She is excepted for admission by Dr. Cardoza. Valarie Disclaimer: Valarie Disclaimer: This electronic medical record was generated, in whole or in part, using a voice recognition dictation system. Departure Departure Impression: Primary Impression: Paresthesia Additional Impressions: Hypertensive emergency Hyperglycemia due to type 2 diabetes mellitus Disposition: ADMITTED INPATIENT Admitting Physician: [facility] (Dr. Cardoza) Condition: IMPROVED Referrals: NO PCP (PCP) VIBHA BOWMAN DO Sep 16, 2021 10:41
--- NOTE | 2021-09-16 11:18 | RAD ---
EXAM: Chest, single view. HISTORY: Left-sided paresthesia. COMPARISON: 11/21/2020 FINDINGS: A frontal view of the chest is obtained. There is no infiltrate, pleural effusion or pneumo thorax. There is a stable cardiac silhouette. There is thoracic scoliosis. IMPRESSION: No acute pulmonary finding. Electronically signed by: Maureen Bear MD (09/16/2021 11:15 AM) [id number]
[2021-09-16 11:25] LABS: BILIRUBIN,URINE NEGATIVE (NEG); COLOR,URINE YELLOW; NITRITE,URINE NEGATIVE (NEG); PROTEIN,URINE >=300 mg/dL (NEG-TRACE); UROBILINOGEN,URINE 0.2 mg/dL (0.2 mg/dL)
[2021-09-16 11:34] LABS: BACTERIA,URINE FEW /HPF (0-FEW); CLARITY,URINE CLOUDY; WBC,URINE OCC /HPF (0-4)
--- NOTE | 2021-09-16 11:34 | RAD ---
EXAM: CT Head without IV contrast CLINICAL HISTORY: Reason: Left sided tingling / Spl. Instructions: / History: COMPARISON: None. TECHNIQUE: Routine CT of the head without contrast. PQRS compliance statement - One or more of the following individualized dose reduction techniques wer e utilized for this study: 1. Automated exposure control 2. Adjustment of the mA and/or kV according to patient size 3. Use of iterative reconstruction technique FINDINGS: There is no evidence of hemorrhage, mass or extra-axial fluid collection. Ward-white differentiation is maintained with no evidence of edema. There is no mass effect or shift of the intracranial structures. The ventricles, basilar cisterns and cortical sulci are normal in size and configuration for the juan ents stated age. The cerebellum and brainstem are unremarkable. The calvarium demonstrates no evidence of fracture or focal lesion. There is normal aeration of the visualized paranasal sinuses and mastoid air cells. The visualized portions of the orbits are normal. IMPRESSION: No evidence for acute intracranial process. Electronically signed by: Kenny Tobar MD (09/16/2021 11:31 AM) [id number]
[2021-09-16 11:35] LABS: AMORPHOUS SEDIMENT,UR PRESENT /HPF; HYALINE CASTS, URINE MODERATE /HPF
[2021-09-16 12:02] LABS: BASO # 0.1 x10^3/uL (0.0-0.2); BASO % 1 % (0-3); EOS % 0 % (0-3); HEMATOCRIT 34.9 % (36.0-47.0); HEMOGLOBIN 11.5 g/dL (12.0-15.5); LYMPH # 1.8 x10^3/uL (1.0-4.8); LYMPH % 27 % (24-48); MEAN CORPUSCULAR HEMOGLOBIN 27 pg (25-35); MEAN CORPUSCULAR HGB CONC 33 g/dL (31-37); MEAN CORPUSCULAR VOLUME 82 fL (79-100); MONO # 0.4 x10^3/uL (0.0-1.1); MONO % 6 % (0-9); NEUT # 4.5 x10^3/uL (1.8-7.7); NEUT % 66 % (31-73); PLATELET COUNT 285 x10^3/uL (140-400); RED BLOOD COUNT 4.27 x10^6/uL (3.50-5.40); RED CELL DISTRIBUTION WIDTH 13.9 % (11.5-14.5); WHITE BLOOD COUNT 6.8 x10^3/uL (4.0-11.0)
[2021-09-16 12:08] LABS: CALCIUM 8.1 mg/dL (8.5-10.1); CREATININE 1.6 mg/dL (0.6-1.0)
[2021-09-16 12:09] LABS: GFR 44.1; POTASSIUM 3.6 mmol/L (3.5-5.1)
[2021-09-16 12:13] LABS: ALBUMIN 2.1 g/dL (3.4-5.0); ALBUMIN/GLOBULIN RATIO 0.5 (1.0-1.7); MAGNESIUM 1.8 mg/dL (1.8-2.4); PHOSPHORUS 3.5 mg/dL (2.6-4.7); TOTAL BILIRUBIN 0.3 mg/dL (0.2-1.0); TOTAL PROTEIN 6.3 g/dL (6.4-8.2)
[2021-09-16] MEDS ORDERED: LABETALOL HCL 100 MG TABLET. PO ONE (12:30)
[2021-09-16] MEDS ORDERED: ASPIRIN ENTERIC COATED 325 MG TABLET.DR. PO ONE (12:30)
--- NOTE | 2021-09-16 12:43 | PDOC1 ---
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 Symptoms lasted a few minutes and are currently resolved. She denies facial droop, speech difficulty, dizziness, motor weakness, numbness. She denies chest pain, palpitations, dyspnea, diaphoresis, abdominal pain, nausea or vomiting. 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 Denies urinary symptoms. Denies incontinence of urine or stool. No seizure activity or history She did not take her medications today, she missed all of her doses yesterday as well. She says she takes amlodipine and labetalol outpatient. She has been going to the [facility] clinic and recently had her oral hypoglycemic agents changed she thinks she was changed to Janumet and was not able to have it filled she was previously taking Metformin. EKG rhythm is sinus with rate is 90 bpm, leftward axis, no ST elevations or TWI. CT head with no acute findings, chest radiograph no acute findings WBC 6.8, Hb 11.5, platelets 285, NA 141, K3.6, BUN 14, CR 1.6, glucose calcium 8.1, Phos 3.5, magnesium 1.8, bilirubin 0.3, AST 16, ALT 23, alk phos 70, high- sensitivity troponin is 29, albumin 2.1, TSH 0.9, urinalysis with glucosuria and proteinuria Blood pressure 250/150 minimally responsive to oral amlodipine did respond reasonably to the IV labetalol still with diastolic over 110 and systolic over 200. Admitted for further care Past Medical History Cardiovascular: No pertinent hx, HTN Pulmonary: No pertinent hx GI: No pertinent hx Heme/Onc: No pertinent hx Psych: No pertinent hx Rheumatologic: No pertinent hx Infectious disease: No pertinent hx Renal/: No pertinent hx Endocrine: Diabetes Past Surgical History Past Surgical History: No pertinent history Family History Family History: No Significant, Hypertension Social History Smoke: No ALCOHOL: none Drugs: None Current Medications Current Medications Current Medications Amlodipine Besylate (Norvasc) 5 mg 1X ONCE PO ; Start 09/16/21 at 12:30; Stop 09/16/21 at 12:31; Status DC Labetalol HCl (Trandate) 100 mg 1X ONCE PO Last administered on 09/16/21at 12:28; Start 09/16/21 at 12:30; Stop 09/16/21 at 12:31; Status DC Aspirin (Ecotrin) 325 mg 1X ONCE PO ; Start 09/16/21 at 12:30; Stop 09/16/21 at 12:31; Status DC Active Scripts Active Metronidazole 500 Mg Tablet 1 Tab PO BID 7 Days Humalog (Insulin Lispro) 100 Unit/1 Ml Insuln.pen 100 Unit SQ BID 30 Days 15 units QAM with breakfast 11 units QPM with supper Sliding scale 0-9 units with lunch Humulin N Kwikpen (Nph, Human Insulin Isophane) 100 Unit/1 Ml Insuln.pen 29 Unit SQ BID 30 Days 29 units QAM [address] Raymundo Villar for refills Please dispense #60 (sixty) pen needles BD fine 5mm 31g or equivalent for patient comfort Vitamins ( Vits W-Ca,Fe,Fa(<1MG)) 1 Each Tablet 1 Tab PO DAILY 30 Days Dok (Docusate Sodium) 100 Mg Capsule 100 Mg PO BID 30 Days Nifedipine Er (Nifedipine) 30 Mg Tablet.er 90 Mg PO DAILY 30 Days Mapap (Acetaminophen) 500 Mg Tablet 500 Mg PO PRN Q6HRS PRN Allergies Allergies: Coded Allergies: broccoli (Verified Allergy, Intermediate, 09/16/21) hydrocodone (Unverified Allergy, Intermediate, Itching, 09/16/21) NAUSEA ROS General: YES: Fatigue, Malaise; No: Chills, Night Sweats, Appetite, Other PSYCHOLOGICAL ROS: YES: Anxiety; No: Behavioral Disorder, Concentration difficultie, Decreased libido, Depression, Disorientation, Hallucinations, Hostility, Irritablity, Memory difficulties, Mood Swings, Obsessive thoughts, Physical abuse, Sexual abuse, Sleep disturbances, Suicidal ideation, Other Eyes: Yes Blurry vision, Yes Decreased vision; No Double vision, No Dry eyes, No Excessive tearing, No Eye Pain, No Itchy Eyes, No Loss of vision, No Photophobia, No Scotomata, No Uses contacts, No Uses glasses, No Other HEENT: YES: Heacaches; No: Visual Changes, Hearing change, Nasal congestion, Nasal discharge, Oral lesions, Sinus pain, Sore Throat, Epistaxis, Sneezing, Snoring, Tinnitus, Vertigo, Vocal changes, Other ALLERGY AND IMMUNOLOGY: No: Hives, Insect Bite Sensitivity, Itchy/Watery Eyes, Nasal Congestion, Post Nasal Drip, Seasonal Allergies, Other Hematological and Lymphatic: No: Bleeding Problems, Blood Clots, Blood Transfusions, Brusing, Night Sweats, Pallor, Swollen Lymph Nodes, Other ENDOCRINE: No: Breast Changes, Galactorrhea, Hair Pattern Changes, Hot Flashes, Malaise/lethargy, Mood Swings, Palpitations, Polydipsia/polyuria, Skin Changes, Temperature Intolerance, Unexpected Weight Changes, Other Breast: No New/Changing Breast Lumps, No Nipple changes, No Nipple discharge, No Other Respiratory: No: Cough, Hemoptysis, Orthopnea, Pleuritic Pain, Shortness of breath, SOB with excertion, Sputum Changes, Stridor, Tachypnea, Wheezing, Other Cardiovascular: No Chest Pain, No Palpitations, No Orthopnea, No Paroxysmal Noc. Dyspnea, No Edema, No Lt Headedness, No Other Gastrointestinal: Yes Nausea; No Vomiting, No Abdominal Pain, No Diarrhea, No Constipation, No Melena, No Hematochezia, No Other Genitourinary: No Dysuria, No Frequency, No Incontinence, No Hematuria, No Retention, No Discharge, No Urgency, No Pain, No Flank Pain, No Other, No , No , No , No , No , No , No Musculoskeletal: No Gait Disturbance, No Joint Pain, No Joint Stiffness, No Joint Swelling, No Muscle Pain, No Muscular Weakness, No Pain In:, No Swelling In:, No Other Neurological: No Behavorial Changes, No Bowel/Bladder ControlChng, No Confusion, No Dizziness, No Gait Disturbance, No Headaches, No Impaired Coor d/balance, No Memory Loss, No Numbness/Tingling, No Seizures, No Speech Problems, No Tremors, No Visual Changes, No Weakness, No Other Skin: No Dry Skin, No Eczema, No Hair Changes, No Lumps, No Mole Changes, No Mottling, No Nail Changes, No Pruritus, No Rash, No Skin Lesion Changes, No Other, No Acne Physical Exam General: Alert, Oriented X3, Cooperative, mild distress HEENT: Atraumatic, PERRLA, EOMI, Mucous membr. moist/pink Lungs: Clear to auscultation, Normal air movement Heart: S1S2, RRR, no thrills, no rubs, no gallops, no murmurs Abdomen: Normal bowel sounds, Soft, No tenderness, No hepatosplenomegaly, No masses Rectal Exam: not examined Extremities: No clubbing, No cyanosis, No edema, Normal pulses, No tenderness/swelling Skin: No rashes, No breakdown, No significant lesion Neuro: Normal gait, Normal speech, Strength at 5/5 X4 ext, Normal tone, Sensation intact, Cranial nerves 3-12 NL, Reflexes 2+ Psych/Mental Status: Mental status NL, Mood NL Vitals Vitals Vital Signs Date Time Temp Pulse Resp B/P (MAP) Pulse Ox O2 Delivery O2 Flow Rate FiO2 09/16/21 12:28 98 245/125 09/16/21 12:26 18 99 Room Air 09/16/21 10:31 98.4 98.4 Labs Labs Laboratory Tests Test 09/16/21 10:37 09/16/21 10:57 09/16/21 11:47 Urine Collection Type Unknown Urine Color Yellow Urine Clarity Cloudy Urine pH 6.0 (<5.0-8.0) Urine Specific Leon >=1.030 (1.000-1.030) Urine Protein >=300 mg/dL (NEG-TRACE) Urine Glucose (UA) 500 mg/dL (NEG) Urine Ketones (Stick) Trace mg/dL (NEG) Urine Blood Large (NEG) Urine Nitrite Negative (NEG) Urine Bilirubin Negative (NEG) Urine Urobilinogen Dipstick 0.2 mg/dL (0.2 mg/dL) Urine Leukocyte Esterase Negative (NEG) Urine RBC 6-10 /HPF (0-2) Urine WBC Occ /HPF (0-4) Urine Squamous Epithelial Cells Mod /LPF Urine Amorphous Sediment Present /HPF Urine Bacteria Few /HPF (0-FEW) Urine Hyaline Casts Moderate /HPF Urine Mucus Marked /LPF Bedside Urine HCG, Qualitative Hcg negative (Negative) White Blood Count 6.8 x10^3/uL (4.0-11.0) Red Blood Count 4.27 x10^6/uL (3.50-5.40) Hemoglobin 11.5 g/dL (12.0-15.5) Hematocrit 34.9 % (36.0-47.0) Mean Corpuscular Volume 82 fL (79-100) Mean Corpuscular Hemoglobin 27 pg (25-35) Mean Corpuscular Hemoglobin Concent 33 g/dL (31-37) Red Cell Distribution Width 13.9 % (11.5-14.5) Platelet Count 285 x10^3/uL (140-400) Neutrophils (%) (Auto) 66 % (31-73) Lymphocytes (%) (Auto) 27 % (24-48) Monocytes (%) (Auto) 6 % (0-9) Eosinophils (%) (Auto) 0 % (0-3) Basophils (%) (Auto) 1 % (0-3) Neutrophils # (Auto) 4.5 x10^3/uL (1.8-7.7) Lymphocytes # (Auto) 1.8 x10^3/uL (1.0-4.8) Monocytes # (Auto) 0.4 x10^3/uL (0.0-1.1) Eosinophils # (Auto) 0.0 x10^3/uL (0.0-0.7) Basophils # (Auto) 0.1 x10^3/uL (0.0-0.2) Sodium Level 141 mmol/L (136-145) Potassium Level 3.6 mmol/L (3.5-5.1) Chloride Level 103 mmol/L (98-107) Carbon Dioxide Level 26 mmol/L (21-32) Anion Gap 12 (6-14) Blood Urea Nitrogen 14 mg/dL (7-20) Creatinine 1.6 mg/dL (0.6-1.0) Estimated GFR (Cockcroft-Gault) 44.1 BUN/Creatinine Ratio 9 (6-20) Glucose Level 296 mg/dL (70-99) Calcium Level 8.1 mg/dL (8.5-10.1) Phosphorus Level 3.5 mg/dL (2.6-4.7) Magnesium Level 1.8 mg/dL (1.8-2.4) Total Bilirubin 0.3 mg/dL (0.2-1.0) Aspartate Amino Transf (AST/SGOT) 16 U/L (15-37) Alanine Aminotransferase (ALT/SGPT) 23 U/L (14-59) Alkaline Phosphatase 70 U/L (46-116) Troponin I High Sensitivity 29 ng/L (4-50) Total Protein 6.3 g/dL (6.4-8.2) Albumin 2.1 g/dL (3.4-5.0) Albumin/Globulin Ratio 0.5 (1.0-1.7) Thyroid Stimulating Hormone (TSH) 0.969 uIU/mL (0.358-3.74) Laboratory Tests Test 09/16/21 10:37 09/16/21 10:57 09/16/21 11:47 Urine Collection Type Unknown Urine Color Yellow Urine Clarity Cloudy Urine pH 6.0 (<5.0-8.0) Urine Specific Leon >=1.030 (1.000-1.030) Urine Protein >=300 mg/dL (NEG-TRACE) Urine Glucose (UA) 500 mg/dL (NEG) Urine Ketones (Stick) Trace mg/dL (NEG) Urine Blood Large (NEG) Urine Nitrite Negative (NEG) Urine Bilirubin Negative (NEG) Urine Urobilinogen Dipstick 0.2 mg/dL (0.2 mg/dL) Urine Leukocyte Esterase Negative (NEG) Urine RBC 6-10 /HPF (0-2) Urine WBC Occ /HPF (0-4) Urine Squamous Epithelial Cells Mod /LPF Urine Amorphous Sediment Present /HPF Urine Bacteria Few /HPF (0-FEW) Urine Hyaline Casts Moderate /HPF Urine Mucus Marked /LPF Bedside Urine HCG, Qualitative Hcg negative (Negative) White Blood Count 6.8 x10^3/uL (4.0-11.0) Red Blood Count 4.27 x10^6/uL (3.50-5.40) Hemoglobin 11.5 g/dL (12.0-15.5) Hematocrit 34.9 % (36.0-47.0) Mean Corpuscular Volume 82 fL (79-100) Mean Corpuscular Hemoglobin 27 pg (25-35) Mean Corpuscular Hemoglobin Concent 33 g/dL (31-37) Red Cell Distribution Width 13.9 % (11.5-14.5) Platelet Count 285 x10^3/uL (140-400) Neutrophils (%) (Auto) 66 % (31-73) Lymphocytes (%) (Auto) 27 % (24-48) Monocytes (%) (Auto) 6 % (0-9) Eosinophils (%) (Auto) 0 % (0-3) Basophils (%) (Auto) 1 % (0-3) Neutrophils # (Auto) 4.5 x10^3/uL (1.8-7.7) Lymphocytes # (Auto) 1.8 x10^3/uL (1.0-4.8) Monocytes # (Auto) 0.4 x10^3/uL (0.0-1.1) Eosinophils # (Auto) 0.0 x10^3/uL (0.0-0.7) Basophils # (Auto) 0.1 x10^3/uL (0.0-0.2) Sodium Level 141 mmol/L (136-145) Potassium Level 3.6 mmol/L (3.5-5.1) Chloride Level 103 mmol/L (98-107) Carbon Dioxide Level 26 mmol/L (21-32) Anion Gap 12 (6-14) Blood Urea Nitrogen 14 mg/dL (7-20) Creatinine 1.6 mg/dL (0.6-1.0) Estimated GFR (Cockcroft-Gault) 44.1 BUN/Creatinine Ratio 9 (6-20) Glucose Level 296 mg/dL (70-99) Calcium Level 8.1 mg/dL (8.5-10.1) Phosphorus Level 3.5 mg/dL (2.6-4.7) Magnesium Level 1.8 mg/dL (1.8-2.4) Total Bilirubin 0.3 mg/dL (0.2-1.0) Aspartate Amino Transf (AST/SGOT) 16 U/L (15-37) Alanine Aminotransferase (ALT/SGPT) 23 U/L (14-59) Alkaline Phosphatase 70 U/L (46-116) Troponin I High Sensitivity 29 ng/L (4-50) Total Protein 6.3 g/dL (6.4-8.2) Albumin 2.1 g/dL (3.4-5.0) Albumin/Globulin Ratio 0.5 (1.0-1.7) Thyroid Stimulating Hormone (TSH) 0.969 uIU/mL (0.358-3.74) Images Images CT of the head without contrast: There is no evidence of hemorrhage, mass or extra-axial fluid collection. Ward-white differentiation is maintained with no evidence of edema. There is no mass effect or shift of the intracranial structures. The ventricles, basilar cisterns and cortical sulci are normal in size and configuration for the patients stated age. The cerebellum and brainstem are unremarkable. The calvarium demonstrates no evidence of fracture or focal lesion. There is normal aeration of the visualized paranasal sinuses and mastoid air cells. The visualized portions of the orbits are normal. IMPRESSION: No evidence for acute intracranial process. PORTABLE CHEST 1V: A frontal view of the chest is obtained. There is no infiltrate, pleural effusion or pneumothorax. There is a stable cardiac silhouette. There is thoracic scoliosis. IMPRESSION: No acute pulmonary finding. VTE Prophylaxis Ordered VTE Prophylaxis Devices: No VTE Pharmacological Prophylaxi: Yes Assessment/Plan Assessment/Plan Left sided numbness - resolved prior to arrival. Possibly hypertensive encephalopathy. Neurology was consulted in ED for TIA symptoms. CT head with no acute findings Hypertensive emergency - IV labetalol, hydralazine Hyperglycemia due to type 2 diabetes mellitus - sliding scale and oral meds Left ventricular hypertrophy - noted on prior echo and EKG confirms, likely developing hypertensive cardiomyopathy Proteinuria - TRUDY or ARB appropriate, will await repeat Cr. HANNY - prior Cr 1.1 on 11/18/21, now 1.6. Likely vasomotor nephropathy. Will monitor Severe protein calorie malnutrition - likely due to poorly controlled diabetes with likely diabetic nephropathy Anemia - likely due to chronic disease FEN - ADA diet PPX - lovenox FULL CODE Dispo - inpatient Justifications for Admission Other Justification SYDNEY CONLEY MD Sep 16, 2021 12:43
[2021-09-16] MEDS: hydrALAZINE 20 MG/ML VIAL. IVP PRN ×2 (13:00→16:58)
[2021-09-16] MEDS ORDERED: DEXTROSE 50% 25 GM / 50ML DISP.SYRIN. IV PRN (14:00)
[2021-09-16] MEDS ORDERED: ACETAMINOPHEN 325 MG TABLET. PO PRN ×2 (14:00→14:30)
[2021-09-16] MEDS ORDERED: IV DEXTROSE 5% 250 ML BAG. IV PRN (14:00)
[2021-09-16] MEDS ORDERED: traMADol 50 MG TABLET PO PRN (14:00)
[2021-09-16] MEDS ORDERED: fentaNYL PF VIAL 100 MCG/2 ML VIAL IVP PRN (14:00)
[2021-09-16] MEDS: ONDANSETRON PF 4 MG/2 ML VIAL. IVP PRN ×3 (14:04→20:22)
--- NOTE | 2021-09-16 14:17 | EKG ---
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
[2021-09-16] MEDS ORDERED: ONDANSETRON PF 4 MG/2 ML VIAL. IVP PRN (14:30)
[2021-09-16] MEDS ORDERED: IV NORMAL SALINE 1000ML BAG 1,000 ML IV ONE (14:30)
[2021-09-16] MEDS: LINAGLIPTIN 5 MG TABLET PO SCH (15:55)
[2021-09-16] MEDS: LABETALOL HCL 100 MG TABLET. PO SCH ×3 (15:56→22:58)
[2021-09-16 15:57] VITALS: BP 206/99
--- NOTE | 2021-09-16 16:20 | RAD ---
EXAM: Calles scale and color Doppler renal artery sonogram. HISTORY: Hypertensive emergency. TECHNIQUE: Calles scale and color Doppler sonographic imaging of the kidneys and renal arteries with sp ectral analysis was performed. COMPARISON: None. FINDINGS: The kidneys are normal in size. No solid or cystic renal lesion is seen. There are normal p eak systolic velocities within the renal arteries and normal renal artery to aorta velocity ratios. T he bladder is unremarkable. The aorta is normal in caliber. IMPRESSION: 1. Unremarkable grayscale evaluation of the kidneys. 2. No Doppler evidence of hemodynamically significant stenosis involving the renal arteries. Electronically signed by: Maureen Bear MD (09/16/2021 4:18 PM) [id number]
[2021-09-16] MEDS ORDERED: PROCHLORPERAZINE 10 MG/2 ML VIAL. IV PRN (16:30)
[2021-09-16] MEDS ORDERED: ONDANSETRON PF 4 MG/2 ML VIAL. IM ONE (17:00)
[2021-09-16] MEDS: INSULIN LISPRO 300 UNITS/3 ML VIAL. SQ SCH (17:02)
[2021-09-16 19:00] VITALS: BP 183/66
--- NOTE | 2021-09-16 19:14 | PDOC2 ---
CONSULT Date of Consult Date of Consult DATE: 09/16/21 TIME: 19:02 Reason for Consult Reason for Consult: Concern for TIA History of Present Illness Reason for Visit: Nikhil Addison is a 36-year-old woman who began to have neurologic symptoms while at work earlier today. 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 She developed left-sided tingling and pain. This then resolved but spread to her left shoulder and arm which then improved and went to her left abdomen which then improved and went to her left leg and then fully resolved. All in all her symptoms lasted 15 minutes. She was able to walk but she was not sure she was as stable. She could hear, talk and think. She had difficulty moving the affected part but it is completely back to normal. She has had difficulty with very poor oral intake due to intractable nausea and vomiting which began 3 days ago. She had eaten at a [employer] restaurant in which she came home was having abdominal pain. She began to vomit the next day and has kept no food down. She is concerned she has become dehydrated. She has type 2 diabetes which has been chronically poorly controlled. She presented with markedly elevated blood pressures which she state has never been an issue. She does have a history of hypertension. Past Medical History Cardiovascular: No pertinent hx, HTN Pulmonary: No pertinent hx GI: No pertinent hx Heme/Onc: No pertinent hx Psych: No pertinent hx Rheumatologic: No pertinent hx Infectious disease: No pertinent hx Renal/: No pertinent hx Endocrine: Diabetes Past Surgical History Past Surgical History: No pertinent history Family History Family History: No Significant, Hypertension Social History No ALCOHOL: none Drugs: None Current Problem List Problem List Problems Medical Problems: (1) Hyperglycemia due to type 2 diabetes mellitus Status: Acute (2) Hypertensive emergency Status: Acute (3) Paresthesia Status: Acute Current Medications Current Medications Current Medications Amlodipine Besylate (Norvasc) 5 mg 1X ONCE PO Last administered on 09/16/21at 12:54; Start 09/16/21 at 12:30; Stop 09/16/21 at 12:31; Status DC Labetalol HCl (Trandate) 100 mg 1X ONCE PO Last administered on 09/16/21at 12:28; Start 09/16/21 at 12:30; Stop 09/16/21 at 12:31; Status DC Aspirin (Ecotrin) 325 mg 1X ONCE PO Last administered on 09/16/21at 12:54; Start 09/16/21 at 12:30; Stop 09/16/21 at 12:31; Status DC Hydralazine HCl (Apresoline Inj) 10 mg PRN Q4HRS PRN IVP ELEVATED BP, SEE COMMENTS Last administered on 09/16/21at 16:58; Start 09/16/21 at 12:45 Ondansetron HCl (Zofran) 4 mg PRN Q4HRS PRN IVP NAUSEA/VOMITING Last administered on 09/16/21at 16:22; Start 09/16/21 at 14:00 Linagliptin (Tradjenta) 5 mg DAILY PO Last administered on 09/16/21at 15:55; Start 09/16/21 at 15:00 Empaglifozin (Jardiance) 10 mg DAILY PO ; Start 09/17/21 at 17:00 Insulin Human Lispro (HumaLOG) 0-9 UNITS TIDWMEALS SQ Last administered on 09/16/21at 17:02; Start 09/16/21 at 17:00 Dextrose (Dextrose 50%-Water Syringe) 12.5 gm PRN Q15MIN PRN IV SEE COMMENTS; Start 09/16/21 at 14:00 Dextrose (Iv Dextrose 5%) 250 ml PRN Q15MIN PRN IV SEE COMMENTS; Start 09/16/21 at 14:00 Labetalol HCl (Trandate) 100 mg BID PO Last administered on 09/16/21at 15:56; Start 09/16/21 at 15:00 Amlodipine Besylate (Norvasc) 10 mg DAILY PO Last administered on 09/16/21at 15:56; Start 09/16/21 at 15:00 Fentanyl Citrate (Fentanyl 2ml Vial) 25 mcg PRN Q3HRS PRN IVP SEVERE PAIN 7-10; Start 09/16/21 at 14:00 Acetaminophen (Tylenol) 650 mg PRN Q6HRS PRN PO MILD PAIN / TEMP > 100.3'F; Start 09/16/21 at 14:00 Psyllium Hydrophilic Mucilloid (Metamucil Fiber Packet) 1 pkt QHS PO ; Start 09/16/21 at 21:00 Tramadol HCl (Ultram) 50 mg PRN Q6HRS PRN PO PAIN; Start 09/16/21 at 14:00 Ondansetron HCl (Zofran) 4 mg PRN Q8HRS PRN IVP NAUSEA/VOMITING; Start 09/16/21 at 14:30; Stop 09/17/21 at 14:29 Acetaminophen (Tylenol) 650 mg PRN Q4HRS PRN PO FEVER > 100.3'F; Start 09/16/21 at 14:30; Stop 09/17/21 at 14:29 Sodium Chloride 1,000 ml @ 75 mls/hr 1X ONCE IV Last administered on 09/16/21at 14:52; Start 09/16/21 at 14:30; Stop 09/17/21 at 03:49 Ondansetron HCl (Zofran) 4 mg 1X ONCE IM ; Start 09/16/21 at 17:00; Stop 09/16 at 17:01; Status DC Prochlorperazine Edisylate (Compazine) 10 mg PRN Q6HRS PRN IV NAUSEA/VOMITING (2ND CHOICE); Start 09/16/21 at 16:30 Active Scripts Active Metronidazole 500 Mg Tablet 1 Tab PO BID 7 Days Humalog (Insulin Lispro) 100 Unit/1 Ml Insuln.pen 100 Unit SQ BID 30 Days 15 units QAM with breakfast 11 units QPM with supper Sliding scale 0-9 units with lunch Humulin N Kwikpen (Nph, Human Insulin Isophane) 100 Unit/1 Ml Insuln.pen 29 Unit SQ BID 30 Days 29 units QAM [address] Raymundo Villar for refills Please dispense #60 (sixty) pen needles BD fine 5mm 31g or equivalent for patient comfort Vitamins ( Vits W-Ca,Fe,Fa(<1MG)) 1 Each Tablet 1 Tab PO DAILY 30 Days Dok (Docusate Sodium) 100 Mg Capsule 100 Mg PO BID 30 Days Nifedipine Er (Nifedipine) 30 Mg Tablet.er 90 Mg PO DAILY 30 Days Mapap (Acetaminophen) 500 Mg Tablet 500 Mg PO PRN Q6HRS PRN Allergies Allergies: Coded Allergies: broccoli (Verified Allergy, Intermediate, 09/16/21) hydrocodone (Unverified Allergy, Intermediate, Itching, 09/16/21) NAUSEA ROS Eyes: Yes Loss of vision (Left eye due to diabetic complications) Musculoskeletal: Yes Joint Pain (Left shoulder) Neurological: Yes Numbness/Tingling (Transient left-sided numbness and tingling) Physical Exam Physical Exam She was alert, awake and cooperative. The speech was fluent and clear. She had a good fund of recent and remote knowledge. Attention and concentration was intact. She was well-groomed and well-nourished. She was fully oriented. Examination of the cranial nerves revealed visual arias were full to confrontation. Extraocular movements were intact. The eyes were conjugate. Pursuit movements were smooth and saccadic movements were without dysmetria. The pupils were 3 millimeters and reacted to light. There was no afferent pupillary defect. Funduscopic examination did not reveal papilledema, exudate or hemorrhage. Facial sensation was intact. The muscles of mastication and facial expression were powerful symmetrically. Hearing was intact to finger rub. The palate arch symmetrically and the tongue was midline with full range of motion. Sternocleidomastoid and trapezius were powerful bilaterally. Muscle bulk and tone was normal. The left arm was not as testable because of the IV placed in the antecubital fossa and left shoulder pain. There was no arm drift or abnormal movement. The power was full and symmetric in the upper and lower extremities. Reflexes were 2/4 and symmetric in the upper and lower extremities but absent at both ankles. The toes were downgoing bilaterally. Coordination testing with finger to nose, heel to hilton, fine motor and rapid alternating movements was well performed. The sensory examination was intact to pain, light touch, proprioception, graphesthesia, cold thermal and vibration. There was no extinction to double simultaneous stimulation. The gait was of a normal base and steady walk. She was able to heel and toe walk. She could not tandem walk. The Romberg stance was negative. Auscultation of the carotid arteries did not reveal a bruit. Heart rhythm was regular without a murmur. Peripheral pulses are 2/4 at the wrists and feet. There was no cyanosis of the extremities. She had some edema of her ankles and feet. Palpation of the left shoulder provoke pain. Vitals VITALS Vital Signs Date Time Temp Pulse Resp B/P (MAP) Pulse Ox O2 Delivery O2 Flow Rate FiO2 09/16/21 17:24 Room Air 09/16/21 16:58 100 206/99 09/16/21 15:57 98.4 19 100 98.4 Labs Labs Laboratory Tests Test 09/16/21 10:37 09/16/21 10:57 09/16/21 11:47 09/16/21 16:49 Urine Collection Type Unknown Urine Color Yellow Urine Clarity Cloudy Urine pH 6.0 (<5.0-8.0) Urine Specific [place] >=1.030 (1.000-1.030) Urine Protein >=300 mg/dL (NEG-TRACE) Urine Glucose (UA) 500 mg/dL (NEG) Urine Ketones (Stick) Trace mg/dL (NEG) Urine Blood Large (NEG) Urine Nitrite Negative (NEG) Urine Bilirubin Negative (NEG) Urine Urobilinogen Dipstick 0.2 mg/dL (0.2 mg/dL) Urine Leukocyte Esterase Negative (NEG) Urine RBC 6-10 /HPF (0-2) Urine WBC Occ /HPF (0-4) Urine Squamous Epithelial Cells Mod /LPF Urine Amorphous Sediment Present /HPF Urine Bacteria Few /HPF (0-FEW) Urine Hyaline Casts Moderate /HPF Urine Mucus Marked /LPF Bedside Urine HCG, Qualitative Hcg negative (Negative) White Blood Count 6.8 x10^3/uL (4.0-11.0) Red Blood Count 4.27 x10^6/uL (3.50-5.40) Hemoglobin 11.5 g/dL (12.0-15.5) Hematocrit 34.9 % (36.0-47.0) Mean Corpuscular Volume 82 fL (79-100) Mean Corpuscular Hemoglobin 27 pg (25-35) Mean Corpuscular Hemoglobin Concent 33 g/dL (31-37) Red Cell Distribution Width 13.9 % (11.5-14.5) Platelet Count 285 x10^3/uL (140-400) Neutrophils (%) (Auto) 66 % (31-73) Lymphocytes (%) (Auto) 27 % (24-48) Monocytes (%) (Auto) 6 % (0-9) Eosinophils (%) (Auto) 0 % (0-3) Basophils (%) (Auto) 1 % (0-3) Neutrophils # (Auto) 4.5 x10^3/uL (1.8-7.7) Lymphocytes # (Auto) 1.8 x10^3/uL (1.0-4.8) Monocytes # (Auto) 0.4 x10^3/uL (0.0-1.1) Eosinophils # (Auto) 0.0 x10^3/uL (0.0-0.7) Basophils # (Auto) 0.1 x10^3/uL (0.0-0.2) Sodium Level 141 mmol/L (136-145) Potassium Level 3.6 mmol/L (3.5-5.1) Chloride Level 103 mmol/L (98-107) Carbon Dioxide Level 26 mmol/L (21-32) Anion Gap 12 (6-14) Blood Urea Nitrogen 14 mg/dL (7-20) Creatinine 1.6 mg/dL (0.6-1.0) Estimated GFR (Cockcroft-Gault) 44.1 BUN/Creatinine Ratio 9 (6-20) Glucose Level 296 mg/dL (70-99) Calcium Level 8.1 mg/dL (8.5-10.1) Phosphorus Level 3.5 mg/dL (2.6-4.7) Magnesium Level 1.8 mg/dL (1.8-2.4) Total Bilirubin 0.3 mg/dL (0.2-1.0) Aspartate Amino Transf (AST/SGOT) 16 U/L (15-37) Alanine Aminotransferase (ALT/SGPT) 23 U/L (14-59) Alkaline Phosphatase 70 U/L (46-116) Troponin I High Sensitivity 29 ng/L (4-50) ES-Fgu-W-Type Natriuretic Peptide 4160 pg/mL (0-124) Total Protein 6.3 g/dL (6.4-8.2) Albumin 2.1 g/dL (3.4-5.0) Albumin/Globulin Ratio 0.5 (1.0-1.7) Thyroid Stimulating Hormone (TSH) 0.969 uIU/mL (0.358-3.74) Glucose (Fingerstick) 239 mg/dL (70-99) Laboratory Tests Test 09/16/21 10:37 09/16/21 10:57 09/16/21 11:47 09/16/21 16:49 Urine Collection Type Unknown Urine Color Yellow Urine Clarity Cloudy Urine pH 6.0 (<5.0-8.0) Urine Specific [place] >=1.030 (1.000-1.030) Urine Protein >=300 mg/dL (NEG-TRACE) Urine Glucose (UA) 500 mg/dL (NEG) Urine Ketones (Stick) Trace mg/dL (NEG) Urine Blood Large (NEG) Urine Nitrite Negative (NEG) Urine Bilirubin Negative (NEG) Urine Urobilinogen Dipstick 0.2 mg/dL (0.2 mg/dL) Urine Leukocyte Esterase Negative (NEG) Urine RBC 6-10 /HPF (0-2) Urine WBC Occ /HPF (0-4) Urine Squamous Epithelial Cells Mod /LPF Urine Amorphous Sediment Present /HPF Urine Bacteria Few /HPF (0-FEW) Urine Hyaline Casts Moderate /HPF Urine Mucus Marked /LPF Bedside Urine HCG, Qualitative Hcg negative (Negative) White Blood Count 6.8 x10^3/uL (4.0-11.0) Red Blood Count 4.27 x10^6/uL (3.50-5.40) Hemoglobin 11.5 g/dL (12.0-15.5) Hematocrit 34.9 % (36.0-47.0) Mean Corpuscular Volume 82 fL (79-100) Mean Corpuscular Hemoglobin 27 pg (25-35) Mean Corpuscular Hemoglobin Concent 33 g/dL (31-37) Red Cell Distribution Width 13.9 % (11.5-14.5) Platelet Count 285 x10^3/uL (140-400) Neutrophils (%) (Auto) 66 % (31-73) Lymphocytes (%) (Auto) 27 % (24-48) Monocytes (%) (Auto) 6 % (0-9) Eosinophils (%) (Auto) 0 % (0-3) Basophils (%) (Auto) 1 % (0-3) Neutrophils # (Auto) 4.5 x10^3/uL (1.8-7.7) Lymphocytes # (Auto) 1.8 x10^3/uL (1.0-4.8) Monocytes # (Auto) 0.4 x10^3/uL (0.0-1.1) Eosinophils # (Auto) 0.0 x10^3/uL (0.0-0.7) Basophils # (Auto) 0.1 x10^3/uL (0.0-0.2) Sodium Level 141 mmol/L (136-145) Potassium Level 3.6 mmol/L (3.5-5.1) Chloride Level 103 mmol/L (98-107) Carbon Dioxide Level 26 mmol/L (21-32) Anion Gap 12 (6-14) Blood Urea Nitrogen 14 mg/dL (7-20) Creatinine 1.6 mg/dL (0.6-1.0) Estimated GFR (Cockcroft-Gault) 44.1 BUN/Creatinine Ratio 9 (6-20) Glucose Level 296 mg/dL (70-99) Calcium Level 8.1 mg/dL (8.5-10.1) Phosphorus Level 3.5 mg/dL (2.6-4.7) Magnesium Level 1.8 mg/dL (1.8-2.4) Total Bilirubin 0.3 mg/dL (0.2-1.0) Aspartate Amino Transf (AST/SGOT) 16 U/L (15-37) Alanine Aminotransferase (ALT/SGPT) 23 U/L (14-59) Alkaline Phosphatase 70 U/L (46-116) Troponin I High Sensitivity 29 ng/L (4-50) SA-Rjf-A-Type Natriuretic Peptide 4160 pg/mL (0-124) Total Protein 6.3 g/dL (6.4-8.2) Albumin 2.1 g/dL (3.4-5.0) Albumin/Globulin Ratio 0.5 (1.0-1.7) Thyroid Stimulating Hormone (TSH) 0.969 uIU/mL (0.358-3.74) Glucose (Fingerstick) 239 mg/dL (70-99) Images Images CT head without contrast September 16, 2021 FINDINGS: There is no evidence of hemorrhage, mass or extra-axial fluid collection. Ward-white differentiation is maintained with no evidence of edema. There is no mass effect or shift of the intracranial structures. The ventricles, basilar cisterns and cortical sulci are normal in size and configuration for the patients stated age. The cerebellum and brainstem are unremarkable. The calvarium demonstrates no evidence of fracture or focal lesion. There is normal aeration of the visualized paranasal sinuses and mastoid air cells. The visualized portions of the orbits are normal. IMPRESSION: No evidence for acute intracranial process. Chest x-ray September 16, 2021 FINDINGS: A frontal view of the chest is obtained. There is no infiltrate, pleural effusion or pneumothorax. There is a stable cardiac silhouette. There is thoracic scoliosis. IMPRESSION: No acute pulmonary finding. Bilateral renal artery ultrasound September 16, 2021 FINDINGS: The kidneys are normal in size. No solid or cystic renal lesion is seen. There are normal peak systolic velocities within the renal arteries and normal renal artery to aorta velocity ratios. The bladder is unremarkable. The aorta is normal in caliber. IMPRESSION: 1. Unremarkable grayscale evaluation of the kidneys. 2. No Doppler evidence of hemodynamically significant stenosis involving the renal arteries. Assessment/Plan Assessment/Plan Patient is a pleasant 36-year-old woman who had neurologic symptoms earlier today lasting approximately 15 minutes. Symptoms were numbness and pain of the left side and seemed to migrate from the face on down all the way to the leg. This would be unusual for a transient ischemic attack as neurologic events are usually associated with neurologic deficit more than they are with pain. Her event was clearly painful. She does have a painful left shoulder which predates this process. Complicating is the fact that she is had nausea and vomiting for the last 3 days either due to food poisoning from the [employer] restaurant or from a gastroenteritis. Food poisoning usually only last about 24 hours. Urinalysis does reveal evidence of dehydration. She does not have definite evidence for infection. I will arrange for an MRI brain without contrast to better evaluate for stroke. She certainly has vascular risk factors. I will continue aspirin daily. DIONTE FARAH MD Sep 16, 2021 19:14
[2021-09-16] MEDS ORDERED: PSYLLIUM HUSK (SUGAR FREE) 1 PKT PACKET PO SCH (21:00)
[2021-09-16 22:08] VITALS: BP 183/66
--- NOTE | 2021-09-16 22:30 | NUR ---
TOOK PT HER MEDS, SHE REFUSED METAMUCIL EXPLAINED IT BULKS THE STOOL AND PREVENTS DIARRHEA. AND I ALSO HAD TYLENOL FOR THE HEADACHE THAT WAS BOTHERING. PT WAS ON HER CELL PHONE, NOT LISTENING TO THE MED INFORMATION. EXPLAINED THE MEDS AGAIN AFTER SHE SAID SOMETHING TO THE [employer] HELPER JESSICA. AND THE PT PUT HER CELL PHONE IN FRONT OF HER FACE AND SAID SHE HAD NOTHING MORE TO SAY. REPORTED TO IVAN DAVILA RN, SHE TOOK OVER PT CARE. I PRINTED OFF ALL INFORMATION SHEETS FOR HER SCHEDULED MEDS AND ZOFRAN . TIP PUNCHER CHAUNE TOOK OVER HER CARE. LCRN
--- NOTE | 2021-09-16 23:00 | NUR ---
CHANGE OF CARE NOTE:Pt request a new nurse pt stated" she will not take any medication from previous nurse" poc explained to pt will resume pt care and continue to monitor pt. Call light placed in reach.
[2021-09-17 02:29] VITALS: BP 142/73
[2021-09-17 05:08] LABS: CALCIUM 7.3 mg/dL (8.5-10.1); CREATININE 1.9 mg/dL (0.6-1.0); GFR 36.2; POTASSIUM 3.2 mmol/L (3.5-5.1)
[2021-09-17 05:09] LABS: CHOLESTEROL/HDL RATIO 6.3
[2021-09-17 07:04] VITALS: BP 173/76
[2021-09-17] MEDS ORDERED: ASPIRIN ENTERIC COATED 81 MG TABLET.DR. PO SCH (08:00)
[2021-09-17] MEDS: INSULIN LISPRO 300 UNITS/3 ML VIAL. SQ SCH ×3 (08:10→16:54)
[2021-09-17] MEDS: LINAGLIPTIN 5 MG TABLET PO SCH (08:11)
--- NOTE | 2021-09-17 08:11 | RAD ---
BILATERAL DUPLEX CAROTID SONOGRAPHY History: Reason: Transient ischemic attack / Spl. Instructions: / History: Technique: Duplex sonography of the cervical portion of both carotid arteries was performed. Real-lupis e grayscale, color flow Doppler, and Doppler spectral waveform analysis is performed. Findings: Right side: Peak systolic flow velocity of the CCA is 121 cm/sec. Peak systolic flow velocity of the ICA is 146 cm/sec. The ICA/CCA ratio is 1.2. Peak end diastolic flow velocity of the ICA is 40 cm/sec. The peak systolic velocity of the ECA is 130 cm/sec. No significant plaque formation is identified. Left side: Peak systolic flow velocity of the CCA is 151 cm/sec. Peak systolic flow velocity of the ICA is 102 cm/sec. The ICA/CCA ratio is 0.6. Peak end diastolic flow velocity of the ICA is 33 cm/sec. Peak systolic flow velocity of the ECA is 116 cm/sec. No significant plaque formation is identified. Vertebral arteries: Bilateral vertebral arteries demonstrate antegrade flow. Minimal flow is demonstrated in the right ve rtebral artery. IMPRESSION: No hemodynamically significant internal carotid artery stenosis is identified. PQRS Compliance Statement - Stenosis calculations for CT, MR and conventional angiography are based u kostas measurement of the distal ICA diameter in accordance with the NASCET methodology. Stenosis calcu lations for carotid ultrasound studies are derived from validated velocity criteria which are known t o correlate with the NASCET methodology. Electronically signed by: Kyle Al MD (09/17/2021 8:08 AM) [facility]
[2021-09-17] MEDS: LABETALOL HCL 100 MG TABLET. PO SCH (08:12)
--- NOTE | 2021-09-17 09:31 | NUR ---
SS following for discharge planning. SS reviewed pt chart and discussed with pt RN. Pt is from home and is currently on room air. Neurology following. Discharge plan is currently to home when medically ready for discharge. SS will continue to follow for discharge planning.
[2021-09-17] MEDS: POTASSIUM CHLORIDE 20 MEQ TABLET.ER. PO ONE ×2 (09:45→11:39)
[2021-09-17] MEDS: POTASSIUM CHLORIDE 10MEQ 100 ML IV SCH ×2 (10:03→11:00)
[2021-09-17 10:45] VITALS: BP 148/77
[2021-09-17] MEDS ORDERED: IV NORMAL SALINE 500ML BAG 500 ML IV ONE (11:15)
--- NOTE | 2021-09-17 13:38 | PDOC ---
[employer] PROGRESS NOTE Date of Service DOS: DATE: 09/17/21 TIME: 13:35 Chief Complaint Chief Complaint Assessment/Plan Dehydration Dyslipidemiawe will start atorvastatin Left sided numbness - resolved prior to arrival. Possibly hypertensive encephalopathy. Neurology was consulted in ED for TIA symptoms. CT head with no acute findings Hypertensive emergency - IV labetalol, hydralazine Hyperglycemia due to type 2 diabetes mellitus - sliding scale and oral meds Left ventricular hypertrophy - noted on prior echo and EKG confirms, likely developing hypertensive cardiomyopathy Proteinuria - TRUDY or ARB appropriate, will await repeat Cr. HANNY - prior Cr 1.1 on 11/18/21, now 1.6. Likely vasomotor nephropathy. 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 Symptoms lasted a few minutes and are currently resolved. She denies facial droop, speech difficulty, dizziness, motor weakness, numbness. She denies chest pain, palpitations, dyspnea, diaphoresis, abdominal pain, nausea or vomiting. 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 Denies urinary symptoms. Denies incontinence of urine or stool. No seizure activity or history She did not take her medications today, she missed all of her doses yesterday as well. She says she takes amlodipine and labetalol outpatient. She has been going to the [facility] and recently had her oral hypoglycemic agents changed she thinks she was changed to Janumet and was not able to have it filled she was previously taking Metformin. EKG rhythm is sinus with rate is 90 bpm, leftward axis, no ST elevations or TWI. CT head with no acute findings, chest radiograph no acute findings WBC 6.8, Hb 11.5, platelets 285, NA 141, K3.6, BUN 14, CR 1.6, glucose calcium 8.1, Phos 3.5, magnesium 1.8, bilirubin 0.3, AST 16, ALT 23, alk phos 70, high- sensitivity troponin is 29, albumin 2.1, TSH 0.9, urinalysis with glucosuria and proteinuria Blood pressure 250/150 minimally responsive to oral amlodipine did respond reaso nably to the IV labetalol still with diastolic over 110 and systolic over 200. Admitted for further care 09/17/2021 No acute events overnight. Patient seen examined bedside. Pain and weakness has improved. Neuro evaluating and finishing stroke work-up. I will give 500 NS bolus because her creatinine increased to 1.9. She appears somewhat dehydrated. Patient's chart, labs, images were reviewed and discussed with RN Vitals/I&O Vitals/I&O: Vital Signs Date Time Temp Pulse Resp B/P (MAP) Pulse Ox O2 Delivery O2 Flow Rate FiO2 09/17/21 10:45 98.0 94 18 148/77 (100) 98 Room Air 98.0 I & O 09/16/21 09/16/21 09/17/21 15:00 23:00 07:00 Intake Total 100 ml 100 ml Balance 100 ml 100 ml Physical Exam General: Alert, Oriented X3, Cooperative, mild distress Lungs: Clear Abdomen: Normal bowel sounds, Soft, No tenderness, No hepatosplenomegaly, No masses Extremities: No clubbing, No cyanosis, No edema, Normal pulses, No tenderness/swelling Skin: No rashes, No breakdown, No significant lesion Labs Labs: Laboratory Tests Test 09/16/21 16:49 09/16/21 19:53 09/17/21 03:00 09/17/21 07:47 Glucose (Fingerstick) 239 mg/dL (70-99) 252 mg/dL (70-99) 198 mg/dL (70-99) Sodium Level 141 mmol/L (136-145) Potassium Level 3.2 mmol/L (3.5-5.1) Chloride Level 106 mmol/L (98-107) Carbon Dioxide Level 25 mmol/L (21-32) Anion Gap 10 (6-14) Blood Urea Nitrogen 18 mg/dL (7-20) Creatinine 1.9 mg/dL (0.6-1.0) Estimated GFR (Cockcroft-Gault) 36.2 Glucose Level 235 mg/dL (70-99) Calcium Level 7.3 mg/dL (8.5-10.1) Triglycerides Level 112 mg/dL (0-150) Cholesterol Level 375 mg/dL (0-200) LDL Cholesterol, Calculated 293 mg/dL (0-100) VLDL Cholesterol, Calculated 22 mg/dL (0-40) Non-HDL Cholesterol Calculated 315 mg/dL (0-129) HDL Cholesterol 60 mg/dL (40-60) Cholesterol/HDL Ratio 6.3 Test 09/17/21 11:40 Glucose (Fingerstick) 189 mg/dL (70-99) Assessment and Plan Assessmemt and Plan Problems Medical Problems: (1) Hyperglycemia due to type 2 diabetes mellitus Status: Acute (2) Hypertensive emergency Status: Acute (3) Paresthesia Status: Acute Comment Review of Relevant I have reviewed the following items delmi (where applicable) has been applied. Medications: Current Medications Medications (Trade) Dose Ordered Sig/Sylvia Route PRN Reason Start Time Stop Time Status Last Admin Dose Admin Ondansetron HCl (Zofran) 4 mg PRN Q4HRS PRN IVP NAUSEA/VOMITING 09/16/21 14:00 09/16/21 20:22 Linagliptin (Tradjenta) 5 mg DAILY PO 09/16/21 15:00 09/17/21 08:11 Insulin Human Lispro (HumaLOG) 0-9 UNITS TIDWMEALS SQ 09/16/21 17:00 09/17/21 11:50 Labetalol HCl (Trandate) 100 mg BID PO 09/16/21 15:00 09/17/21 08:12 Amlodipine Besylate (Norvasc) 10 mg DAILY PO 09/16/21 15:00 09/17/21 08:11 Sodium Chloride 1,000 ml @ 75 mls/hr 1X ONCE IV 09/16/21 14:30 09/17/21 03:49 DC 09/16/21 14:52 Aspirin (Ecotrin) 81 mg DAILYWBKFT PO 09/17/21 08:00 09/17/21 08:10 Potassium Chloride/Water 100 ml @ 100 mls/hr Q1H IV 09/17/21 10:00 09/17/21 11:13 DC 09/17/21 10:03 Potassium Chloride (Klor-Con) 40 meq 1X ONCE PO 09/17/21 09:45 09/17/21 09:46 DC 09/17/21 11:39 Sodium Chloride 500 ml @ 500 mls/hr 1X ONCE IV 09/17/21 11:15 09/17/21 12:14 DC 09/17/21 11:15 Justifications for Admission Other Justification ISAURO ESPINOZA MD Sep 17, 2021 13:38
[2021-09-17] MEDS ORDERED: POTASSIUM CHLORIDE 10MEQ 100 ML IV SCH (14:00)
[2021-09-17] MEDS ORDERED: POTASSIUM CHLORIDE 20 MEQ TABLET.ER. PO ONE (14:15)
[2021-09-17 14:41] VITALS: BP_SYST 142; BP_SYST 154; BP_DIAS 63; BP_DIAS 76
[2021-09-17] MEDS ORDERED: EMPAGLIFLOZIN 10 MG TABLET. PO SCH (17:00)
[2021-09-17] MEDS ORDERED: LINA5TAB PO (18:14)
[2021-09-17] MEDS ORDERED: ASPI-886 PO (18:14)
[2021-09-17] MEDS ORDERED: AMLO-187 PO (18:14)
[2021-09-17] MEDS ORDERED: LABE100T5 PO (18:14)
[2021-09-17] MEDS ORDERED: ATOR40TA59 PO (18:14)
--- NOTE | 2021-09-17 18:36 | NUR ---
Pt provided discharge instructions and prescriptions. Pt transported by wheelchair with belongings to family waiting at main entrance.
[2021-09-17] MEDS ORDERED: ATORVASTATIN CALCIUM 40 MG TABLET. PO SCH (21:00)
== END 2021-09-17 19:30 | disposition home or self-care (01) ==
LOC: ER 10:27 → 6 SOUTH 12:20
PROVIDERS: ADMIT Internal Medicine; ATTEND Internal Medicine
DX: R20.0 Anesthesia of skin (principal); I16.1 Hypertensive emergency; E11.65 Type 2 diabetes mellitus with hyperglycemia; R80.9 Proteinuria, unspecified; N17.9 Acute kidney failure, unspecified; E46 Unspecified protein-calorie malnutrition; D64.9 Anemia, unspecified; I11.9 Hypertensive heart disease without heart failure; G45.9 Transient cerebral ischemic attack, unspecified; H54.7 Unspecified visual loss; I43 Cardiomyopathy in diseases classified elsewhere; E86.0 Dehydration; D63.8 Anemia in other chronic diseases classified elsewhere; E11.21 Type 2 diabetes mellitus with diabetic nephropathy; E43 Unspecified severe protein-calorie malnutrition; E11.319 Type 2 diabetes mellitus with unspecified diabetic retinopathy without macular edema; E78.5 Hyperlipidemia, unspecified; M41.9 Scoliosis, unspecified; R20.2 Paresthesia of skin; N17.0 Acute kidney failure with tubular necrosis; D63.1 Anemia in chronic kidney disease; Z68.34 Body mass index [BMI] 34.0-34.9, adult; Z79.82 Long term (current) use of aspirin; Z79.899 Other long term (current) drug therapy; Z98.890 Other specified postprocedural states; Z79.4 Long term (current) use of insulin
CPT/HCPCS: 36415; 70450; 71045; 76770; 80048; 80053; 80061; 81001; 81025; 82962; 83735; 83880; 84100; 84443; 84484; 85025; 93005; 93880; 96361; 96372; 96374; 96375; 96376; 99285; G0378; J0360; J1815; J2405; J3480; J7030; J7040; G0379